=== PATIENT | female | born 1955 | race Caucasian/White ===

== ENCOUNTER 2017-01-26 11:30 | Inpatient (IN) | payer OTHER, MEDICARE ==
[2017-01-26] VITALS (8 sets, daily range): BP systolic 102–146; BP diastolic 57–79; PULSE 76–92; RESP 18–22; TEMP 97.3–98.8; O2SAT 88–98
[~2017-01-26] VITALS: Ht 160 cm; Wt 115.0 kg
[~2017-01-26 11:30] MED LIST: ALPR0.5T99 PO; ASPI81 PO; CAPT50TA PO; HUMULIN 70/30 SQ; HYDR50TA5 PO
[2017-01-26] MEDS ORDERED: SODIUM CHLORIDE 0.9% FLUSH 10 ML FLUSH IVF PRN (12:00)
[2017-01-26] MEDS ORDERED: OCUVTAB PO (12:12)
[2017-01-26] MEDS ORDERED: MAGN500T2 PO (12:12)
[2017-01-26] MEDS ORDERED: BRIM0.2S4 EACH EYE (12:12)
[2017-01-26] MEDS ORDERED: N7030SS (12:12)
[2017-01-26] MEDS ORDERED: CAPT50TA PO (12:12)
[2017-01-26] MEDS ORDERED: ALPR.5 PO (12:12)
[2017-01-26] MEDS ORDERED: GLYB5TAB3 PO (12:12)
[2017-01-26] MEDS ORDERED: ASPI81CH CHEW (12:12)
[2017-01-26] MEDS ORDERED: TIMO0.5S30 EACH EYE (12:12)
[2017-01-26] MEDS ORDERED: TRIA1TAB5 PO (12:12)
[2017-01-26 12:15] LABS: AUTOMATED NEUTROPHIL # 9.3 TH/MM3 (1.8-7.7); BASOPHIL # 0.4 TH/MM3 (0-0.2); BASOPHIL % 3.5 % (0.0-2.0); EOSINOPHIL # 0.1 TH/MM3 (0-0.4); EOSINOPHIL % 0.7 % (0.0-4.0); HEMO FLAGS DIFF FINAL; LYMPH % 12.7 % (9.0-44.0); LYMPHOCYTE # 1.5 TH/MM3 (1.0-4.8); MEAN CORPUSCULAR HEMOGLOBIN 32.6 PG (27.0-34.0); MONO % 6.3 % (0.0-8.0); NEUT % 76.8 % (16.0-70.0); PLATELET COUNT 320 TH/MM3 (150-450); RED BLOOD COUNT 4.49 MIL/MM3 (4.00-5.30); RED CELL DISTRIBUTION WIDTH 11.9 % (11.6-17.2); WHITE BLOOD COUNT 12.1 TH/MM3 (4.0-11.0)
[2017-01-26 12:23] LABS: CHLORIDE 101 MEQ/L (98-107); POTASSIUM 3.7 MEQ/L (3.5-5.1); SODIUM (NA) 140 MEQ/L (136-145)
[2017-01-26 12:27] LABS: ANION GAP 9 MEQ/L (5-15); APTT (PATIENT) 26.1 SEC (24.3-30.1); BICARBONATE 30.4 MEQ/L (21.0-32.0); BLOOD UREA NITROGEN 27 MG/DL (7-18); MAGNESIUM 2.2 MG/DL (1.5-2.5); PROTHROMBIN TIME - PATIENT 10.6 SEC (9.8-11.6)
[2017-01-26 12:30] LABS: ALT (GPT) 18 U/L (10-53); AST (GOT) 21 U/L (15-37); GLOMERULAR FILTRATION RATE 30 ML/MIN (>89)
[2017-01-26 12:31] LABS: TOTAL BILIRUBIN ADULT 0.3 MG/DL (0.2-1.0)
[2017-01-26 12:33] LABS: ALKALINE PHOSPHATASE 71 U/L (45-117); CREATINE KINASE 172 U/L (26-192)
[2017-01-26 12:45] LABS: CKMB 3.2 NG/ML (0.5-3.6)
--- NOTE | 2017-01-26 12:49 | RADHPO ---
EXAM DATE/TIME: 01/26/2017 12:13 [facility] COMPARISON: CHEST SINGLE AP, April 20, 2016, 19:25. INDICATIONS : Short of breath MEDICAL HISTORY : Diabetes mellitus type I. SURGICAL HISTORY : None. ENCOUNTER: Initial ACUITY: 4 - 6 days PAIN SCORE: 0/10 LOCATION: Bilateral chest FINDINGS: Rotated and underinflated AP view of the chest demonstrates a normal-sized cardiac silhouette. Linear opacity at the right lung base is characteristic of subsegmental atelectasis. There is also mild ate lectasis at the left lung base. No effusion, consolidation, or pneumothorax is identified. Bones and soft tissues demonstrate no acute finding. CONCLUSION: Underinflated examination with atelectasis at the bases. No acute finding is identified. Sriram Paul MD on January 26, 2017 at 12:45 Board Certified Radiologist. This report was verified electronically.
--- NOTE | 2017-01-26 12:59 | EKG ---
Date Performed: 01/26/2017 Time Performed: 11:56:37 PTAGE: 62 years EKG: Sinus rhythm LOW QRS VOLTAGE IN PRECORDIAL LEADS BORDERLINE ECG PREVIOUS TRACING : 04/20/2016 19.16 compared to the previous EKG no significant change DOCTOR: Jt Szymanski Interpretating Date/Time 01/26/2017 12:57:13
[2017-01-26] MEDS ORDERED: DIATRIZOATE MEGLUM/DIATRIZOATE SOD 9 ML CUP ONE (13:13)
[2017-01-26 13:29] LABS: BLOOD, URINE NEG (NEG); GLUCOSE,URINE NEG (NEG); KETONE, URINE TRACE mg/dL (NEG); NITRITE,URINE NEG (NEG); PH, URINE 5.5 (5.0-8.5)
[2017-01-26 13:35] LABS: METHOD OF COLLECTION CATH; URINE COLOR YELLOW (YELLW/STRAW)
[2017-01-26 13:36] LABS: WBC, URINE 100-200 /hpf (0-5)
[2017-01-26 13:37] LABS: BACTERIA, URINE OCC /hpf; COMMENT (UR) CULTURE INDICATED; CULTURE IF INDICATED CULTURE INDICATED
[2017-01-26] MEDS ORDERED: MACR100C2 PO (13:45)
--- NOTE | 2017-01-26 13:45 | PD ---
HPI . Swollen abdomen Chief Complaint: Edema Time Seen by Provider: 11:50 Travel History International Travel<30 days: No Contact w/Intl Traveler<30days: No Traveled to known affect area: No History of Present Illness HPI This patient is a very poor historian. She presents with the chief complaint of "fluid retention." She states that her abdomen is swollen and has been for the last 2-3 days. Was that it is secondary to retaining fluid. She denies any extremity swelling. She states that the abdominal swelling is making her feel short of breath. She also states that she thinks that she might have a urinary tract infection. I was not able to get her to further expand on those symptoms. The patient has not noted any exacerbating or relieving factors. She has no pain. Her shortness of breath is mild. Her abdominal swelling is severe. She states that she is not constipated. She is not having any vomiting or food intolerance. PFSH Past Medical History Hx Anticoagulant Therapy: Yes (baby aspirin) Cancer: Yes (CERVICAL) Chemotherapy: Yes (CERVICAL CA) COPD: Yes (CHRONIC BRONCHITIS) Diabetes: Yes Patient Takes Glucophage: Yes Hypertension: Yes Pneumonia: Yes Radiation Therapy: Yes (FOR CERVICAL CA) Sleep Apnea: Yes Tetanus Vaccination: < 5 Years Influenza Vaccination: Yes ?: Not Menopausal: Yes Past Surgical History Cholecystectomy: Yes Gynecologic Surgery: Yes (CERVICAL CONE BIOPSY) Other Surgery: Yes (cataracts, left leg gangrene ) Social History Alcohol Use: No Tobacco Use: No Substance Use: No Allergies-Medications (Allergen,Severity, Reaction): Coded Allergies: Penicillin (Verified Allergy, Severe, SWELLING, 01/26/17) Reported Meds & Prescriptions Reported Meds & Active Scripts Active Reported Aspirin 81 Mg Chew 81 Mg CHEW DAILY Xanax (Alprazolam) 0.5 Mg Tab 0.5 Mg PO Q8H PRN Novolin 70/30 Inj (Insulin Human Isoph/Insulin Regular) 1,000 Units/10 Ml Inj 40 Unit DAILY Ocuvite (Multiple Vitamins W/ Minerals) 1 Tab 1 Tab PO DAILY Glyburide 5 Mg Tab 5 Mg PO DAILY Take with meals at the same time each day Triamterene-Hydrochlorothiazide 75-50 Mg Tab 1 Tab PO DAILY Captopril 50 Mg Tab 50 Mg PO TIDAC Take 1 hour before meals. Magnesium Oxide 500 Mg Tab 1,000 Mg PO DAILY Brimonidine Opth Drops (Brimonidine Tartrate) 0.2% Soln 1 Drop EACH EYE BID Timolol Opth Drops 0.5 % Soln 1 Drop EACH EYE BID Review of Systems Except as stated in HPI: all other systems reviewed are Neg General / Constitutional: No: Fever, Chills Cardiovascular: No: Chest Pain or Discomfort Respiratory: Positive: Shortness of Breath Gastrointestinal: No: Nausea, Vomiting, Diarrhea, Abdominal Pain, Constipation , Changes in Bowel Habits, Loss of Appetite Genitourinary: Positive: Other (she states that she thinks that she has a UTI) Physical Exam Narrative GENERAL: Markedly obese. No acute distress. SKIN: Warm and dry. Skin changes compatible with peripheral vascular disease. The skin of the lower extremities is darkened and thickened. HEAD: Atraumatic. Normocephalic. EYES: Pupils equal and round. Extraocular movements are intact. ENT: No nasal bleeding or discharge. Mucous membranes pink and moist. NECK: Trachea midline. Neck is supple. CARDIOVASCULAR: Regular rate and rhythm. Heart sounds are normal. RESPIRATORY: Able to speak to me complete sentences without any respiratory distress. No accessory muscle use. Lungs are clear with full air movement throughout. GASTROINTESTINAL: Abdomen soft. Non-tender. Protuberant. No pitting edema of the abdominal wall. MUSCULOSKELETAL: She has a deformed right hand. No edema. NEUROLOGICAL: Awake and alert. No obvious cranial nerve deficits. Motor grossly within normal limits. Normal speech. PSYCHIATRIC: Appropriate mood and affect; insight and judgment normal. Data Data Last Documented VS Vital Signs Date Time Temp Pulse Resp B/P Pulse Ox O2 Delivery O2 Flow Rate FiO2 01/26/17 15:13 84 20 146/69 88 Nasal Cannula 2 01/26/17 11:40 98.2 Orders Complete Blood Count With Diff (01/26/17 11:55) Comprehensive Metabolic Panel (01/26/17 11:55) B-Type Natriuretic Peptide (01/26/17 11:55) Act Partial Throm Time (Ptt) (01/26/17 11:55) Prothrombin Time / Inr (Pt) (01/26/17 11:55) Magnesium (Mg) (01/26/17 11:55) Ckmb (Isoenzyme) Profile (01/26/17 11:55) Troponin I (01/26/17 11:55) Iv Access Insert/Monitor (01/26/17 11:55) Electrocardiogram (01/26/17 11:55) Ecg Monitoring (01/26/17 11:55) Oximetry (01/26/17 11:55) Oxygen Administration (01/26/17 11:55) Chest, Single Ap (01/26/17 11:55) Sodium Chloride 0.9% Flush (Ns Flush) (01/26/17 12:00) Urinalysis - C+S If Indicated (01/26/17 12:16) CKMB (01/26/17 12:00) CKMB% (01/26/17 12:00) Oral Contrast - Adult (01/26/17 13:09) Diatrizoate Liq ( Gastroview Liq) (01/26/17 13:13) Urinary Catheter Management NATHALIA.Q8H (01/26/17 13:35) Urine Culture (01/26/17 13:20) Ct Abd/Pel W/O Iv Contrast (01/26/17 13:49) Ceftriaxone Inj (Rocephin Inj) (01/26/17 15:30) Furosemide Inj (Lasix Inj) (01/26/17 15:45) Admit Order (Ed Use Only) (01/26/17 15:51) Ldh Serum (01/26/17 12:00) Labs Laboratory Tests Test 01/26/17 01/26/17 12:00 13:20 White Blood Count 12.1 TH/MM3 Red Blood Count 4.49 MIL/MM3 Hemoglobin 14.6 GM/DL Hematocrit 43.0 % Mean Corpuscular Volume 96.0 FL Mean Corpuscular Hemoglobin 32.6 PG Mean Corpuscular Hemoglobin 34.0 % Concent Red Cell Distribution Width 11.9 % Platelet Count 320 TH/MM3 Mean Platelet Volume 8.7 FL Neutrophils (%) (Auto) 76.8 % Lymphocytes (%) (Auto) 12.7 % Monocytes (%) (Auto) 6.3 % Eosinophils (%) (Auto) 0.7 % Basophils (%) (Auto) 3.5 % Neutrophils # (Auto) 9.3 TH/MM3 Lymphocytes # (Auto) 1.5 TH/MM3 Monocytes # (Auto) 0.8 TH/MM3 Eosinophils # (Auto) 0.1 TH/MM3 Basophils # (Auto) 0.4 TH/MM3 CBC Comment DIFF FINAL Differential Comment Prothrombin Time 10.6 SEC Prothromb Time International 1.0 RATIO Ratio Activated Partial 26.1 SEC Thromboplast Time Sodium Level 140 MEQ/L Potassium Level 3.7 MEQ/L Chloride Level 101 MEQ/L Carbon Dioxide Level 30.4 MEQ/L Anion Gap 9 MEQ/L Blood Urea Nitrogen 27 MG/DL Creatinine 1.70 MG/DL Estimat Glomerular Filtration 30 ML/MIN Rate Random Glucose 166 MG/DL Calcium Level 8.9 MG/DL Magnesium Level 2.2 MG/DL Total Bilirubin 0.3 MG/DL Aspartate Amino Transf 21 U/L (AST/SGOT) Alanine Aminotransferase 18 U/L (ALT/SGPT) Alkaline Phosphatase 71 U/L Lactate Dehydrogenase 256 U/L Total Creatine Kinase 172 U/L Creatine Kinase MB 3.2 NG/ML Troponin I LESS THAN 0.02 NG/ML B-Type Natriuretic Peptide 60 PG/ML Total Protein 7.0 GM/DL Albumin 2.5 GM/DL Urine Collection Type CATH Urine Color YELLOW Urine Turbidity SLIGHT Urine pH 5.5 Urine Specific [place] 1.016 Urine Protein 30 mg/dL Urine Glucose (UA) NEG mg/dL Urine Ketones TRACE mg/dL Urine Occult Blood NEG Urine Nitrite NEG Urine Bilirubin NEG Urine Leukocyte Esterase SMALL Urine WBC 100-200 /hpf Urine WBC Clumps MANY Urine Bacteria OCC /hpf Urine Granular Casts 10-15 /lpf Microscopic Urinalysis Comment CULTURE INDICATED Urine Collection Time 13:20 MDM Medical Decision Making Medical Screen Exam Complete: Yes Emergency Medical Condition: Yes Medical Record Reviewed: Yes (medical history is significant for diabetes, hypertension, COPD, obstructive sleep apnea and cervical cancer.) Interpretation(s) EKG shows a sinus rhythm with no ST segment elevation or depression. Differential Diagnosis My differential diagnosis of abdominal distention includes but is not limited to constipation, bowel obstruction, ascites, obesity Narrative Course Patient presents for evaluation of abdominal distention. She also thinks that she has urinary tract infection. I truly suspect that her abdominal distention is obesity. CBC & BMP Diagram 01/26/17 12:00 UA>>sm LE, 100-200 WBC, many WBC clumps, occ bact Her BNP is 60. Her Ortiz act enzymes are negative. Liver function studies are normal. Last Impressions Abdomen/Pelvis CT 01/26/17 9741 Signed Impressions: Service Date/Time: Saturday, January 26, 2017 14:38 - CONCLUSION: 1. Moderate to large amount of ascites without definitive etiology identified on CT. No definitive mesenteric mass or hepatic volume loss. Evaluation of the mesentery and liver are however limited due to lack of IV contrast. 2. Periumbilical anterior bowel wall hernia containing fat and ascites fluid. Myke Kendall MD Chest X-Ray 01/26/17 1155 Signed Impressions: Service Date/Time: Thursday, January 26, 2017 12:13 - CONCLUSION: Underinflated examination with atelectasis at the bases. No acute finding is identified. Sriram Paul MD Vital Signs Date Time Temp Pulse Resp B/P Pulse Ox O2 Delivery O2 Flow Rate FiO2 01/26/17 15:13 84 20 146/69 88 Nasal Cannula 2 01/26/17 14:18 88 20 118/77 98 01/26/17 12:39 91 2 01/26/17 12:30 92 01/26/17 12:28 89 20 92 01/26/17 11:40 98.2 91 20 112/71 91 This patient does have ascites and is hypoxic with sats of 88%. I will admit her to the hospital. Sepsis Criteria SIRS Criteria (2 or more): WBC > 11019, < 4000 or > 10% bands Sepsis Criteria (SIRS+source): Infect source susp/known Physician Communication Physician Communication Dr. Hadley will admit. Diagnosis Primary Impression: Abdominal distention Additional Impressions: Urinary tract infection Qualified Code: N30.00 - Acute cystitis without hematuria Ascites Qualified Code: R18.8 - Other ascites Hypoxia Admitting Information Admitting Physician Requests: Admit Patient Instructions: General Instructions, Urinary Tract Infection in Women ( [place]) Condition: Stable Kimberlee Pisano MD Jan 26, 2017 13:45
--- NOTE | 2017-01-26 15:19 | RADHPO ---
EXAM DATE/TIME: 01/26/2017 14:38 This report includes an Addendum and supersedes previous reports for this exam. [facility] COMPARISON: No previous studies available for comparison. INDICATIONS : abdominal distention. ORAL CONTRAST: Prescribed oral contrast ingested. RADIATION DOSE: 62.52 CTDIvol (mGy) MEDICAL HISTORY : cervical ca with radiation , Bronchititis SURGICAL HISTORY : gangrene left leg ENCOUNTER: Initial ACUITY: 4 - 6 days PAIN SCALE: 6/10 LOCATION: Bilateral abdomen TECHNIQUE: Volumetric scanning of the abdomen and pelvis was performed. Using automated exposure control and ad justment of the mA and/or kV according to patient size, radiation dose was kept as low as reasonably achievable to obtain optimal diagnostic quality images. FINDINGS: LOWER LUNGS: Linear probable scarring versus atelectasis in the right lung base. LIVER: Liver is grossly homogeneous in density without evidence for significant volume loss or intrapelvic d uct dilatation. Gallbladder surgically absent. SPLEEN: Normal size without lesion. PANCREAS: Within normal limits. KIDNEYS: Kidneys are symmetrical in size without evidence for hydronephrosis, radiopaque renal calculi, or con tour deforming abnormality. ADRENAL GLANDS: Within normal limits. VASCULAR: There is no aortic aneurysm. BOWEL/MESENTERY: There is a moderate to large mount of ascites. Appendix is visualized and normal. Scattered colonic d iverticula are noted in the descending and distal transverse colon. Bowel otherwise appears unremarka ble without evidence for obstruction or significant bowel wall thickening. ABDOMINAL WALL: Periumbilical anterior abdominal wall hernia containing fat and small amount of ascites fluid. RETROPERITONEUM: There is no lymphadenopathy. BLADDER: Decompressed secondary to White catheter. REPRODUCTIVE: Uterus is surgically absent. No adnexal mass. INGUINAL: Small subcentimeter me some nodes, likely reactive. MUSCULOSKELETAL: No abnormal lytic or blastic bony lesions. Multilevel degenerative spondylosis of the lumbar spine. CONCLUSION: 1. Moderate to large amount of ascites without definitive etiology identified on CT. No definitive me senteric mass or hepatic volume loss. Evaluation of the mesentery and liver are however limited due t o lack of IV contrast. 2. Periumbilical anterior bowel wall hernia containing fat and ascites fluid. Myke Kendall MD on January 26, 2017 at 15:08 Board Certified Radiologist. This report was verified electronically. ADDENDUM: Reexamination of the pelvic CT exam does demonstrate a small uterus which appears unremarkable by CT. The uterus was originally reported as surgically absent. Myke Kendall MD on January 28, 2017 at 16:01 Board Certified Radiologist. This report was verified electronically.
[2017-01-26] MEDS ORDERED: cefTRIAXone INJ 1,000 MG in SODIUM CHLORIDE 0.9% INJ 100 ML IV ONE (15:30)
[2017-01-26] MEDS ORDERED: FUROSEMIDE 40 MG/4 ML VIAL IV PUSH ONE (15:45)
[2017-01-26] MEDS ORDERED: DEXTROSE 50% IN WATER 50 ML VIAL(D50) IV PRN (16:15)
[2017-01-26] MEDS ORDERED: GLUCAGON 1 MG/ML VIAL OTHER PRN (16:15)
[2017-01-26] MEDS ORDERED: SODIUM CHLORIDE 0.9% FLUSH 10 ML FLUSH IV FLUSH PRN (16:15)
--- NOTE | 2017-01-26 16:30 | HHI.HP ---
HPI Service [facility] Primary Care Physician Erin Frazier MD Admission Diagnosis ascites, UTI, hypoxia Diagnoses: Chief Complaint: Swelling and short of breath Travel History International Travel<30 Days: No Contact w/Intl Traveler <30 Da: No Traveled to Known Affected Are: No History of Present Illness Patient is a 62-year-old female with a known history of diabetes mellitus type 2 and frequent urinary tract infections. Patient says that for the last 3 days she's had increasing swelling of the abdomen and decreased urine output. Her urine also has been foul-smelling and she was concerned she had a urinary tract infection. For the last month she has received 2 separate empiric antibiotic regimens for probable urinary tract infection by her primary care doctor. One of these of Cipro and she believes the other was Flagyl. Patient says that her urine has never cleared up and is become very discomforting. Patient came to the emergency room with increased swelling for the last 3 days and on exam her abdomen is quite distended. She is obese however this distention is superimposed on that and there is a fluid wave on exam with hypoactive bowel sounds. Patient notes normal bowel habits without any history of obstruction. She does not drink alcohol notes no recent exposure to possible toxins. She does have acute kidney injury and was also hypoxemic on arrival in the emergency room. Patient was given Lasix and a urinary catheter was placed. Patient did have some improvement on oxygen. She has been recommended for further evaluation and treatment in the hospital due to massive plan ascites clinically and on CT findings. Review of Systems Constitutional: DENIES: Diaphoretic episodes, Fatigue, Fever, Weight gain, Weight loss, Chills, Dizziness, Change in appetite, Night Sweats Endocrine: DENIES: Abnorml menstrual pattern, Heat/cold intolerance, Polydipsia , Polyuria, Polyphagia Eyes: COMPLAINS OF: Vision loss, DENIES: Blurred vision, Diplopia, Eye inflammation, Eye pain, Photosensitivity, Double Vision Ears, nose, mouth, throat: DENIES: Tinnitus, Hearing loss, Vertigo, Nasal discharge, Oral lesions, Throat pain, Hoarseness, Ear Pain, Running Nose, Epistaxis, Sinus Pain, Toothache, Odynophagia Cardiovascular: COMPLAINS OF: Dyspnea on Exertion, Lower Extremity Edema, DENIES: Chest pain, Palpitations, Syncope, PND, Orthopnea, Claudication Gastrointestinal: DENIES: Abdominal pain, Black stools, Bloody stools, Constipation, Diarrhea, Nausea, Vomiting, Difficulty Swallowing, Anorexia Genitourinary: DENIES: Abnormal vaginal bleeding, Dysmenorrhea, Dyspareunia, Sexual dysfunction, Urinary frequency, Urinary incontinence, Urgency, Hematuria , Dysuria, Nocturia, Vaginal discharge Musculoskeletal: DENIES: Joint pain, Muscle aches, Stiffness, Joint Swelling, Back pain, Neck pain Integumentary: DENIES: Abnormal pigmentation, Pruritus, Rash, Nail changes, Breast masses, Breast skin changes, Nipple discharge Hematologic/lymphatic: DENIES: Bruising, Lymphadenopathy Immunologic/allergic: DENIES: Eczema, Urticaria Neurologic: DENIES: Abnormal gait, Headache, Localized weakness, Paresthesias, Seizures, Speech Problems, Tremor, Poor Balance Psychiatric: DENIES: Anxiety, Confusion, Mood changes, Depression, Hallucinations, Agitation, Suicidal Ideation, Homicidal Ideation, Delusions Past Family Social History Past Medical History Diabetes Hypertension Diabetic nephropathy and neuropathy and retinopathy Past Surgical History Hysterectomy Reported Medications Reviewed in the medical record Allergies: Coded Allergies: Penicillin (Verified Allergy, Severe, SWELLING, 01/26/17) Active Ordered Medications Reviewed in the medical record Family History Parents had diabetes and father from a stroke Social History No current tobacco or alcohol dependency, lives with her dog Physical Exam Vital Signs Vital Signs Date Time Temp Pulse Resp B/P Pulse Ox O2 Delivery O2 Flow Rate FiO2 01/26/17 15:13 84 20 146/69 88 Nasal Cannula 2 01/26/17 14:18 88 20 118/77 98 01/26/17 12:39 91 2 01/26/17 12:30 92 01/26/17 12:28 89 20 92 01/26/17 11:40 98.2 91 20 112/71 91 Physical Exam GENERAL: This is a well-nourished, well-developed patient, in no apparent distress. SKIN: No rashes, ecchymoses or lesions. Cool and dry. HEAD: Atraumatic. Normocephalic. No temporal or scalp tenderness. EYES: sclerotic right eye. Extraocular motions intact. No scleral icterus. No injection or drainage. ENT: Nose without bleeding, purulent drainage or septal hematoma. Throat without erythema, tonsillar hypertrophy or exudate. Uvula midline. Airway patent. NECK: Trachea midline. No JVD or lymphadenopathy. Supple, nontender, no meningeal signs. CARDIOVASCULAR: Regular rate and rhythm without murmurs, gallops, or rubs. RESPIRATORY: Clear to auscultation. Breath sounds equal bilaterally. No wheezes , rales, or rhonchi. GASTROINTESTINAL: Abdomen soft, non-tender, very distended and hypoactive . No hepato-splenomegaly, or palpable masses. No guarding. MUSCULOSKELETAL: right hand underdeveloped; other 3 Extremities without clubbing , cyanosis, but trace leg edema. No joint tenderness, effusion, or edema noted. No calf tenderness. Negative Homans sign bilaterally. NEUROLOGICAL: Awake and alert. Cranial nerves II through XII intact. Motor and sensory grossly within normal limits. Five out of 5 muscle strength in all muscle groups. Normal speech. Laboratory Laboratory Tests Test 01/26/17 01/26/17 12:00 13:20 White Blood Count 12.1 Red Blood Count 4.49 Hemoglobin 14.6 Hematocrit 43.0 Mean Corpuscular Volume 96.0 Mean Corpuscular Hemoglobin 32.6 Mean Corpuscular Hemoglobin 34.0 Concent Red Cell Distribution Width 11.9 Platelet Count 320 Mean Platelet Volume 8.7 Neutrophils (%) (Auto) 76.8 Lymphocytes (%) (Auto) 12.7 Monocytes (%) (Auto) 6.3 Eosinophils (%) (Auto) 0.7 Basophils (%) (Auto) 3.5 Neutrophils # (Auto) 9.3 Lymphocytes # (Auto) 1.5 Monocytes # (Auto) 0.8 Eosinophils # (Auto) 0.1 Basophils # (Auto) 0.4 CBC Comment DIFF FINAL Differential Comment Prothrombin Time 10.6 Prothromb Time International 1.0 Ratio Activated Partial 26.1 Thromboplast Time Sodium Level 140 Potassium Level 3.7 Chloride Level 101 Carbon Dioxide Level 30.4 Anion Gap 9 Blood Urea Nitrogen 27 Creatinine 1.70 Estimat Glomerular Filtration 30 Rate Random Glucose 166 Calcium Level 8.9 Magnesium Level 2.2 Total Bilirubin 0.3 Aspartate Amino Transf 21 (AST/SGOT) Alanine Aminotransferase 18 (ALT/SGPT) Alkaline Phosphatase 71 Total Creatine Kinase 172 Creatine Kinase MB 3.2 Troponin I LESS THAN 0.02 B-Type Natriuretic Peptide 60 Total Protein 7.0 Albumin 2.5 Urine Collection Type CATH Urine Color YELLOW Urine Turbidity SLIGHT Urine pH 5.5 Urine Specific [facility] 1.016 Urine Protein 30 Urine Glucose (UA) NEG Urine Ketones TRACE Urine Occult Blood NEG Urine Nitrite NEG Urine Bilirubin NEG Urine Leukocyte Esterase SMALL Urine WBC 100-200 Urine WBC Clumps MANY Urine Bacteria OCC Urine Granular Casts 10-15 Microscopic Urinalysis Comment CULTURE INDICATED Urine Collection Time 13:20 Date/Time Procedure Status Source Growth 01/26/17 13:20 Urine Culture Received Urine Catheterized Urine Pending Result Diagram: 01/26/17 1200 01/26/17 1200 Imaging Last Impressions Abdomen/Pelvis CT 01/26/17 1349 Signed Impressions: Service Date/Time: Thursday, January 26, 2017 14:38 - CONCLUSION: 1. Moderate to large amount of ascites without definitive etiology identified on CT. No definitive mesenteric mass or hepatic volume loss. Evaluation of the mesentery and liver are however limited due to lack of IV contrast. 2. Periumbilical anterior bowel wall hernia containing fat and ascites fluid. Myke Kendall MD Chest X-Ray 01/26/17 1155 Signed Impressions: Service Date/Time: Thursday, January 26, 2017 12:13 - CONCLUSION: Underinflated examination with atelectasis at the bases. No acute finding is identified. Sriram Paul MD Assessment and Plan Problem List: (1) Ascites ICD Code: R18.8 Status: Acute Plan: Etiology unclear at this time, will proceed with ultrasound for diagnostic and therapeutic paracentesis. Lasix as needed (2) Hypoxia ICD Code: R09.02 Status: Acute Plan: Likely due to abdominal distention from ascites Continue oxygen as needed Echocardiogram to rule out congestive heart failure (3) Urinary tract infection ICD Code: N39.0 Status: Acute Plan: Continue with empiric Rocephin, cultures pending (4) ARF (acute renal failure) ICD Code: N17.9 Status: Acute Plan: Etiology unclear, will treat UTI and follow urine output avoid captopril and other nephrotoxic medication (5) DM2 (diabetes mellitus, type 2) ICD Code: E11.9 Status: Acute Plan: Resume patient's home medications Diabetic diet Physician Certification 2 Midnight Certification Type: Admission for Inpatient Services Order for Inpatient Services The services are ordered in accordance with Medicare regulations or non- Medicare payer requirements, as applicable. In the case of services not specified as inpatient-only, they are appropriately provided as inpatient services in accordance with the 2-midnight benchmark. Estimated LOS (days): 3 3 days is the estimated time the patient will need to remain in the hospital, assuming treatment plan goals are met and no additional complications. Post-Hospital Plan: Home Problem Qualifiers (1) Ascites: Qualified Code: R18.8 - Other ascites (2) Urinary tract infection: Qualified Code: N30.00 - Acute cystitis without hematuria Monica Hadley MD Jan 26, 2017 16:30
--- NOTE | 2017-01-26 18:29 | RADHPO ---
EXAM DATE/TIME: 01/26/2017 17:59 [facility] COMPARISON: No previous studies available for comparison. INDICATIONS : Increased BUN/creatinine. MEDICAL HISTORY : Chronic obstructive pulmonary disease. Hypertension. Cervical cancer. Pneumonia. Chronic bronchitis . Sleep apnea. Diabetes. Anticoagulant therapy, Aspirin 81mg. SURGICAL HISTORY : Cholecystectomy. Cervical cone biopsy. Chemotherapy. Radiation therapy. Cataracts. Left leg gangr andrea. ENCOUNTER: Initial ACUITY: 1 day PAIN SCORE: 0/10 LOCATION: Bilateral flank MEASUREMENTS: RIGHT KIDNEY: 10.2 x 5.2 x 5.6 cm LEFT KIDNEY: 10.8 x 4.8 x 5.5 cm FINDINGS: RIGHT KIDNEY: Renal cortex is normal in thickness and echotexture. No hydronephrosis, stone, or mass. LEFT KIDNEY: Renal cortex is normal in thickness and echotexture. No hydronephrosis, stone, or mass. BLADDER: Within normal limits given the degree of distension. CONCLUSION: Ultrasound appearance of the kidneys and urinary bladder within normal limits. Sriram Kaufman MD on January 26, 2017 at 18:26 Board Certified Radiologist. This report was verified electronically.
[2017-01-26 19:07] LABS: LDH SERUM 256 U/L (84-246)
[2017-01-26] MEDS: SODIUM CHLORIDE 0.9% FLUSH 10 ML FLUSH IV FLUSH SCH (20:55)
[2017-01-26] MEDS: BRIMONIDINE TARTRATE 0.2% OPHT SOLN 5 ML BTL EACH EYE SCH (20:56)
[2017-01-26] MEDS: TIMOLOL MALEATE 0.5% OPHT SOLN 5 ML BTL EACH EYE SCH (20:56)
[2017-01-26] MEDS: INSULIN ASPART SUPPLEMENTAL SCALE SQ SCH (21:00)
[2017-01-27] VITALS (8 sets, daily range): BP systolic 105–156; BP diastolic 56–90; PULSE 90–99; RESP 18–21; TEMP 97.2–98; O2SAT 80–98
[2017-01-27] MEDS: INSULIN ASPART SUPPLEMENTAL SCALE SQ SCH ×4 (07:00→20:49)
[2017-01-27 07:24] LABS: AUTOMATED NEUTROPHIL # 9.8 TH/MM3 (1.8-7.7); BASOPHIL # 0.4 TH/MM3 (0-0.2); BASOPHIL % 3.4 % (0.0-2.0); EOSINOPHIL # 0.1 TH/MM3 (0-0.4); EOSINOPHIL % 0.9 % (0.0-4.0); HEMATOCRIT 41.4 % (35.0-46.0); LYMPH % 10.9 % (9.0-44.0); LYMPHOCYTE # 1.3 TH/MM3 (1.0-4.8); MEAN CELL VOLUME 96.1 FL (80.0-100.0); MEAN CORPUSCULAR HEMOGLOBIN 32.4 PG (27.0-34.0); MEAN CORPUSCULAR HGB CONC 33.7 % (32.0-36.0); MONO % 6.3 % (0.0-8.0); NEUT % 78.5 % (16.0-70.0); PLATELET COUNT 304 TH/MM3 (150-450); RED BLOOD COUNT 4.31 MIL/MM3 (4.00-5.30); WHITE BLOOD COUNT 12.4 TH/MM3 (4.0-11.0)
[2017-01-27 07:37] LABS: BICARBONATE 29.4 MEQ/L (21.0-32.0)
[2017-01-27 07:43] LABS: HEMO FLAGS AUTO DIFF
[2017-01-27 08:45] LABS: SCAN/DIFF AUTO DIFF CONFIRMED
--- NOTE | 2017-01-27 09:17 | HHI.PR ---
Subjective Remarks Patient stated evaluated today follow-up for ascites. Some hypoxemia overnight as the patient to call for oxygen. This quickly recovered with resumption of nasal cannula oxygen. Patient reports today that she has had increasing constipation over the last 2 weeks which is unusual for her and has been taking prune juice and stool softeners. She notes no bloody stools and no painful defecation. Objective Vitals Vital Signs Date Time Temp Pulse Resp B/P Pulse Ox O2 Delivery O2 Flow Rate FiO2 01/27/17 08:27 92 Nasal Cannula 2.00 01/27/17 07:55 80 21 01/27/17 04:19 01/27/17 00:08 98.0 90 20 110/60 92 01/26/17 21:03 98.8 92 22 104/57 90 01/26/17 20:25 93 Nasal Cannula 2.00 01/26/17 18:00 97.3 76 18 102/60 01/26/17 16:50 80 20 142/79 97 Nasal Cannula 2 01/26/17 15:13 84 20 146/69 88 Nasal Cannula 2 01/26/17 14:18 88 20 118/77 98 01/26/17 12:39 91 2 01/26/17 12:30 92 01/26/17 12:28 89 20 92 01/26/17 11:40 98.2 91 20 112/71 91 I/O 01/26/17 01/26/17 01/26/17 01/27/17 01/27/17 01/27/17 07:00 15:00 23:00 07:00 15:00 23:00 Output Total 500 ml Balance -500 ml Output Urine Total 500 ml # Bowel Movements 0 Result Diagram: 01/27/17 0703 01/27/17 0703 Imaging Last Impressions Abdomen/Pelvis CT 01/26/17 1349 Signed Impressions: Service Date/Time: Thursday, January 26, 2017 14:38 - CONCLUSION: 1. Moderate to large amount of ascites without definitive etiology identified on CT. No definitive mesenteric mass or hepatic volume loss. Evaluation of the mesentery and liver are however limited due to lack of IV contrast. 2. Periumbilical anterior bowel wall hernia containing fat and ascites fluid. Myke Kendall MD Chest X-Ray 01/26/17 1155 Signed Impressions: Service Date/Time: Thursday, January 26, 2017 12:13 - CONCLUSION: Underinflated examination with atelectasis at the bases. No acute finding is identified. Sriram Paul MD Renal Ultrasound 01/26/17 0000 Signed Impressions: Service Date/Time: Thursday, January 26, 2017 17:59 - CONCLUSION: Ultrasound appearance of the kidneys and urinary bladder within normal limits. Sriram Kaufman MD Objective Remarks GENERAL: This is a well-nourished, well-developed patient, in no apparent distress. CARDIOVASCULAR: Regular rate and rhythm without murmurs, gallops, or rubs. RESPIRATORY: Clear to auscultation. Breath sounds equal bilaterally. No wheezes , rales, or rhonchi. GASTROINTESTINAL: Abdomen soft, non-tender, mildly distended with fluid wave. Hypo-active bowel sounds MUSCULOSKELETAL: Right hand underdeveloped, other 3 Extremities without clubbing , cyanosis, there is trace edema. NEURO: Legally blind. Right sclerotic eye. Alert & Oriented x4 to person, place, time, situation. Moves all ext x4 A/P Problem List: (1) Ascites ICD Code: R18.8 Status: Acute Plan: Etiology unclear at this time, will proceed with ultrasound for diagnostic and therapeutic paracentesis. Lasix as needed patient with a history of cholecystectomy and hysterectomy Recent bowel change for 2 weeks with constipation (2) Hypoxia ICD Code: R09.02 Status: Acute Plan: Likely due to abdominal distention from ascites Continue oxygen as needed Echocardiogram to rule out congestive heart failure abg pending (3) Urinary tract infection ICD Code: N39.0 Status: Acute Plan: Continue with empiric Rocephin, cultures pending (4) ARF (acute renal failure) ICD Code: N17.9 Status: Acute Plan: Etiology unclear, will treat UTI and follow urine output avoid captopril and other nephrotoxic medication Improved (5) DM2 (diabetes mellitus, type 2) ICD Code: E11.9 Status: Acute Plan: Resume patient's home medications Diabetic diet Problem Qualifiers (1) Ascites: Qualified Code: R18.8 - Other ascites (2) Urinary tract infection: Qualified Code: N30.00 - Acute cystitis without hematuria Monica Hadley MD Jan 27, 2017 09:17
[2017-01-27 10:15] LABS: BLOOD GAS BASE EXCESS 3.4 mmol/L (-2-2); BLOOD GAS CARBOXYHEMOGLOBIN 2.1 % (0-4); BLOOD GAS HCO3 28 mmol/L (22-26); BLOOD GAS METHEMOGLOBIN 1.1 % (0-2); BLOOD GAS O2 HGB SATURATION 87 % (90-100); BLOOD GAS OXYGEN CONTENT 18.3 Vol % (12.0-20.0); BLOOD GAS PCO2 45 mmHG (38-42); BLOOD GAS PO2 59 mmHG (61-120); BLOOD GAS TOTAL HGB 14.9 G/DL (12.0-16.0); CRITICAL VALUE YES; FIO2 21 %; OXYGEN DEVICE ROOM AIR; TEMP CORR TO 98.6
[2017-01-27 10:16] LABS: DRAW SITE RT BRACHIAL; NUMBER OF ARTERIAL PUNCTURES 2; STAT NO; ULNAR PULSE Y
[2017-01-27] MEDS: INSULIN HUMAN NPH/R 70/30 1,000 UNITS/10 ML VIAL SQ SCH (10:17)
[2017-01-27] MEDS: BRIMONIDINE TARTRATE 0.2% OPHT SOLN 5 ML BTL EACH EYE SCH ×2 (10:18→20:46)
[2017-01-27] MEDS: TIMOLOL MALEATE 0.5% OPHT SOLN 5 ML BTL EACH EYE SCH ×2 (10:18→21:00)
[2017-01-27] MEDS: FUROSEMIDE 20 MG/2 ML VIAL IV PUSH SCH (10:20)
[2017-01-27] MEDS: SODIUM CHLORIDE 0.9% FLUSH 10 ML FLUSH IV FLUSH SCH ×2 (10:20→20:48)
[2017-01-27] MEDS: glyBURIDE 5 MG TAB PO SCH (10:20)
[2017-01-27] MEDS: ALPRAZolam 0.5 MG TAB PO PRN (10:22)
--- NOTE | 2017-01-27 12:30 | RADHPO ---
EXAM DATE/TIME: 01/27/2017 11:00 [facility] COMPARISON: US KIDNEY/RENAL/BLADDER, January 26, 2017, 17:59. INDICATIONS : Ascites. MEDICAL HISTORY : Chronic obstructive pulmonary disease. Hypertension. Cervical cancer. Pneumonia. Chronic bronchitis. Sleep apnea. Diabetes. Anticoagulant therapy, Aspirin 81mg. SURGICAL HISTORY : Cholecystectomy Cervical cone biopsy. Chemotherapy. Radiation therapy. Cataracts. Left leg gangrene . ENCOUNTER: Initial ACUITY: 2 days PAIN SCORE: 4/10 LOCATION: Right lower quadrant FLUID: Total volume of 7100 cc of cloudy, yellow fluid was removed. Fluid was sent to lab for ordered studies. Post procedure scanning reveals no hematoma or other complication. TECHNIQUE: 1. Ultrasound guidance for abdominal paracentesis. 2. Paracentesis. The risks, benefits, and alternatives to ultrasound guided paracentesis were explained to the patient in detail including the risk of bleeding and infection. Written and verbal informed consent was obt ained. With the patient on the ultrasound table, ultrasound imaging was used to select the most appropriate approach for paracentesis. Overlying skin was prepped and draped in the usual sterile fashion and wi th a local anesthetic, a dermatotomy was made with an 11 blade scalpel. A 6 [place] [employer] ca theter was introduced into the peritoneal cavity and fluid was collected. The patient tolerated the procedure well and left the ultrasound suite in stable condition. CONCLUSION: Uncomplicated ultrasound guided paracentesis. Juan Pleitez MD on January 27, 2017 at 12:28 Board Certified Radiologist. This report was verified electronically.
[2017-01-27 15:29] LABS: PERITONEAL WBC 790 /MM3 (0-10)
[2017-01-27 16:09] LABS: PERITONEAL LYMPHS 62 %; PERITONEAL POLYS(SEGS) 2 %
[2017-01-27 16:10] LABS: PERITONEAL MESOTHELIAL 36 %
[2017-01-27] MEDS: ONDANSETRON HCL 4 MG/2 ML VIAL IVP PRN (16:11)
[2017-01-27] MEDS: cefTRIAXone INJ 2,000 MG in SODIUM CHLORIDE 0.9% INJ 100 ML IV SCH (16:20)
[2017-01-27] MEDS ORDERED: SENNOSIDES 8.6 MG TAB PO PRN (17:00)
[2017-01-27] MEDS ORDERED: LACTULOSE SYRUP 20 GM/30 ML CUP PO PRN (17:00)
[2017-01-27] MEDS ORDERED: BISACODYL 10 MG SUPP RECTAL PRN (17:00)
[2017-01-27] MEDS: MAGNESIUM HYDROXIDE SUSP 30 ML CUP PO PRN (18:55)
[2017-01-27] MEDS: DOCUSATE SODIUM 50 MG/SENNA 8.6 MG TAB PO SCH (20:46)
[2017-01-28] VITALS (7 sets, daily range): BP systolic 139–150; BP diastolic 66–99; PULSE 80–93; RESP 18–20; TEMP 95.7–97.7; O2SAT 92–96
[2017-01-28 06:50] LABS: CHLORIDE 98 MEQ/L (98-107); POTASSIUM 4.2 MEQ/L (3.5-5.1); SODIUM (NA) 140 MEQ/L (136-145)
[2017-01-28 06:58] LABS: ANION GAP 7 MEQ/L (5-15); BICARBONATE 35.4 MEQ/L (21.0-32.0)
[2017-01-28 06:59] LABS: BLOOD UREA NITROGEN 23 MG/DL (7-18)
[2017-01-28] MEDS: INSULIN ASPART SUPPLEMENTAL SCALE SQ SCH ×4 (07:00→21:26)
[2017-01-28 07:02] LABS: GLOMERULAR FILTRATION RATE 45 ML/MIN (>89)
[2017-01-28] MEDS: DOCUSATE SODIUM 50 MG/SENNA 8.6 MG TAB PO SCH ×2 (09:00→21:16)
[2017-01-28] MEDS: TIMOLOL MALEATE 0.5% OPHT SOLN 5 ML BTL EACH EYE SCH ×2 (09:00→21:00)
[2017-01-28] MEDS: INSULIN HUMAN NPH/R 70/30 1,000 UNITS/10 ML VIAL SQ SCH (09:40)
[2017-01-28] MEDS: FUROSEMIDE 20 MG/2 ML VIAL IV PUSH SCH (09:40)
[2017-01-28] MEDS: glyBURIDE 5 MG TAB PO SCH (09:40)
[2017-01-28] MEDS: SODIUM CHLORIDE 0.9% FLUSH 10 ML FLUSH IV FLUSH SCH ×2 (09:41→21:15)
[2017-01-28] MEDS: BRIMONIDINE TARTRATE 0.2% OPHT SOLN 5 ML BTL EACH EYE SCH ×2 (09:42→21:14)
--- NOTE | 2017-01-28 12:29 | HHI.PR ---
Objective Vitals Vital Signs Date Time Temp Pulse Resp B/P Pulse Ox O2 Delivery O2 Flow Rate FiO2 01/28/17 08:04 92 3.00 01/28/17 08:00 96.3 80 20 141/77 95 01/28/17 00:00 96.1 93 18 139/83 94 01/27/17 20:00 97.6 96 18 156/90 94 01/27/17 19:30 93 Nasal Cannula 3.00 01/27/17 16:00 97.7 99 21 147/90 91 I/O 01/27/17 01/27/17 01/27/17 01/28/17 01/28/17 01/28/17 07:00 15:00 23:00 07:00 15:00 23:00 Intake Total 850 ml 120 ml 240 ml Output Total 500 ml 550 ml 650 ml 450 ml Balance -500 ml 300 ml -530 ml -210 ml Intake Oral 850 ml 120 ml 240 ml IV Total 0 ml Output Urine Total 500 ml 550 ml 650 ml 450 ml # Bowel Movements 0 0 Result Diagram: 01/27/17 0703 01/28/17 0622 Objective Remarks GENERAL: This is a well-nourished, well-developed patient, in no apparent distress. CARDIOVASCULAR: Regular rate and rhythm without murmurs, gallops, or rubs. RESPIRATORY: Clear to auscultation. Breath sounds equal bilaterally. No wheezes , rales, or rhonchi. GASTROINTESTINAL: Abdomen soft, non-tender, mildly distended with fluid wave. Hypo-active bowel sounds MUSCULOSKELETAL: Right hand underdeveloped, other 3 Extremities without clubbing , cyanosis, there is trace edema. NEURO: Legally blind. Right sclerotic eye. Alert & Oriented x4 to person, place, time, situation. Moves all ext x4 A/P Problem List: (1) Ascites ICD Code: R18.8 Status: Acute (2) Hypoxia ICD Code: R09.02 Status: Acute (3) Urinary tract infection ICD Code: N39.0 Status: Acute (4) ARF (acute renal failure) ICD Code: N17.9 Status: Acute (5) DM2 (diabetes mellitus, type 2) ICD Code: E11.9 Status: Acute Problem Qualifiers (1) Ascites: Qualified Code: R18.8 - Other ascites (2) Urinary tract infection: Qualified Code: N30.00 - Acute cystitis without hematuria Monica Hadley MD Jan 28, 2017 12:29
--- NOTE | 2017-01-28 13:11 | ECHRPT ---
Indication: Shortness of breath CONCLUSIONS The left ventricle is not well visualized. estmiated ef @ 50% The right ventricle was not well visualized. BP: / HR: Rhythm: Sinus Technical Quality:Technically difficult study FINDINGS LEFT VENTRICLE The left ventricle is not well visualized. RIGHT VENTRICLE The right ventricle was not well visualized. LEFT ATRIUM The left atrial size is normal. RIGHT ATRIUM The right atrial size is normal. ATRIAL SEPTUM Normal atrial septal thickness without atrial level shunting by limited color doppler interrogation. AORTA The aortic root and proximal ascending aorta are normal in size on limited imaging. MITRAL VALVE Structurally normal mitral valve. No mitral valve stenosis or regurgitation. AORTIC VALVE Trileaflet aortic valve. No aortic valve stenosis or regurgitation. TRICUSPID VALVE Structurally normal tricuspid valve. No tricuspid valve stenosis or regurgitation. PULMONARY VALVE The pulmonary valve is not well visualized. VESSELS The inferior vena cava is normal in size. PERICARDIUM No pericardial effusion. César Hernandez MD, FACC, FSCAI (Electronically Signed) Final Date:28 January 2017 13:09
[2017-01-28] MEDS: CARVEDILOL 12.5 MG TAB PO SCH ×2 (13:52→21:00)
--- NOTE | 2017-01-28 13:54 | HHI.PR ---
Subjective Remarks Patient seen s/p paracentesis of 7.1 liters yesterday, SOme nausea after procedure but this is resolved. Patient denies Hysterectomy but now admits a remote hx of cervical CA medically managed. Breathing better an doxygenatio improved. Objective Vitals Vital Signs Date Time Temp Pulse Resp B/P Pulse Ox O2 Delivery O2 Flow Rate FiO2 01/28/17 12:00 95.7 88 20 150/81 95 01/28/17 08:04 92 3.00 01/28/17 08:00 96.3 80 20 141/77 95 01/28/17 00:00 96.1 93 18 139/83 94 01/27/17 20:00 97.6 96 18 156/90 94 01/27/17 19:30 93 Nasal Cannula 3.00 01/27/17 16:00 97.7 99 21 147/90 91 I/O 01/27/17 01/27/17 01/27/17 01/28/17 01/28/17 01/28/17 07:00 15:00 23:00 07:00 15:00 23:00 Intake Total 850 ml 120 ml 240 ml Output Total 500 ml 550 ml 650 ml 450 ml 650 ml Balance -500 ml 300 ml -530 ml -210 ml -650 ml Intake Oral 850 ml 120 ml 240 ml IV Total 0 ml Output Urine Total 500 ml 550 ml 650 ml 450 ml 650 ml # Bowel Movements 0 0 Result Diagram: 01/27/17 0703 01/28/17 0622 Imaging Last Impressions Cyst Biopsy Asp-Paracentesis US 01/27/17 0000 Signed Impressions: Service Date/Time: Friday, January 27, 2017 11:00 - CONCLUSION: Uncomplicated ultrasound guided paracentesis. Juan Pleitez MD Abdomen/Pelvis CT 01/26/17 1349 Signed Impressions: Service Date/Time: Thursday, January 26, 2017 14:38 - CONCLUSION: 1. Moderate to large amount of ascites without definitive etiology identified on CT. No definitive mesenteric mass or hepatic volume loss. Evaluation of the mesentery and liver are however limited due to lack of IV contrast. 2. Periumbilical anterior bowel wall hernia containing fat and ascites fluid. Myke Kendall MD Chest X-Ray 01/26/17 1155 Signed Impressions: Service Date/Time: Thursday, January 26, 2017 12:13 - CONCLUSION: Underinflated examination with atelectasis at the bases. No acute finding is identified. Sriram Paul MD Renal Ultrasound 01/26/17 0000 Signed Impressions: Service Date/Time: Thursday, January 26, 2017 17:59 - CONCLUSION: Ultrasound appearance of the kidneys and urinary bladder within normal limits. Sriram Kaufman MD Objective Remarks GENERAL: This is a well-nourished, well-developed patient, in no apparent distress. CARDIOVASCULAR: Regular rate and rhythm without murmurs, gallops, or rubs. RESPIRATORY: Clear to auscultation. Breath sounds equal bilaterally. No wheezes , rales, or rhonchi. GASTROINTESTINAL: Abdomen soft, non-tender, not distended. Hypo-active bowel sounds MUSCULOSKELETAL: Right hand underdeveloped, other 3 Extremities without clubbing , cyanosis, there is trace edema. NEURO: Legally blind. Right sclerotic eye. Alert & Oriented x4 to person, place, time, situation. Moves all ext x4 Procedures paracentesis 7.1 Liters A/P Problem List: (1) Ascites ICD Code: R18.8 Status: Acute Plan: Etiology unclear at this time, s/p diagnostic and therapeutic paracentesis. Lasix as needed patient with a history of cholecystectomy and cervical CA Recent bowel change for 2 weeks with constipation (2) Hypoxia ICD Code: R09.02 Status: Acute Plan: Likely due to abdominal distention from ascites Continue oxygen as needed Echocardiogram to rule out congestive heart failure hypoxemia on ABG Improved after Paracentesis (3) Urinary tract infection ICD Code: N39.0 Status: Acute Plan: Continue with empiric Rocephin, cultures show ecoli (4) ARF (acute renal failure) ICD Code: N17.9 Status: Acute Plan: Etiology unclear, will treat UTI and follow urine output avoid captopril and other nephrotoxic medication Improved (5) DM2 (diabetes mellitus, type 2) ICD Code: E11.9 Status: Acute Plan: continue patient's home medications Diabetic diet (6) HTN (hypertension) ICD Code: I10 Status: Acute Plan: acei held Add BB Problem Qualifiers (1) Ascites: Qualified Code: R18.8 - Other ascites (2) Urinary tract infection: Qualified Code: N30.00 - Acute cystitis without hematuria Monica Hadley MD Jan 28, 2017 13:54
[2017-01-28 16:33] LABS: HEMOGLOBIN A1a 2.1 %; HEMOGLOBIN A1b 1.1 %; HEMOGLOBIN Ao 79.5 %; HEMOGLOBIN F 1.6 %; HEMOGLOBIN LA1C 2.1 %; HEMOGLOBIN P3 4.3 %
--- NOTE | 2017-01-28 16:51 | RADHPO ---
EXAM DATE/TIME: 01/28/2017 15:13 [facility] COMPARISON: No previous studies available for comparison. INDICATIONS : Distention. MEDICAL HISTORY : Cervical cancer. SURGICAL HISTORY : None. ENCOUNTER: Initial ACUITY: 2 days PAIN SCORE: Non-responsive. LOCATION: Abdomen, all quadrants. FINDINGS: Contrast identified within the colon. Significant bowel dilatation is not clearly seen. There are clips in the right upper quadrant. There is degenerative change in the lumbar spine. Fr ee air is not clearly seen. CONCLUSION: No definite bowel dilatation or free air is seen. Sriram Sunshine MD on January 28, 2017 at 16:44 Board Certified Radiologist. This report was verified electronically.
[2017-01-28] MEDS: cefTRIAXone INJ 2,000 MG in SODIUM CHLORIDE 0.9% INJ 100 ML IV SCH (17:51)
[2017-01-29] VITALS (7 sets, daily range): BP systolic 116–143; BP diastolic 73–81; PULSE 79–90; RESP 18–20; TEMP 95.6–98; O2SAT 93–98
[2017-01-29] MEDS: INSULIN ASPART SUPPLEMENTAL SCALE SQ SCH ×4 (06:22→20:34)
[2017-01-29 06:59] LABS: POTASSIUM 3.8 MEQ/L (3.5-5.1)
[2017-01-29 07:03] LABS: BICARBONATE 34.5 MEQ/L (21.0-32.0)
[2017-01-29] MEDS: glyBURIDE 5 MG TAB PO SCH (08:54)
[2017-01-29] MEDS: FUROSEMIDE 20 MG/2 ML VIAL IV PUSH SCH (08:55)
[2017-01-29] MEDS: CARVEDILOL 12.5 MG TAB PO SCH ×2 (08:55→20:16)
[2017-01-29] MEDS: DOCUSATE SODIUM 50 MG/SENNA 8.6 MG TAB PO SCH ×2 (09:00→20:16)
[2017-01-29] MEDS: BRIMONIDINE TARTRATE 0.2% OPHT SOLN 5 ML BTL EACH EYE SCH ×2 (09:00→20:24)
[2017-01-29] MEDS: TIMOLOL MALEATE 0.5% OPHT SOLN 5 ML BTL EACH EYE SCH ×2 (09:00→20:16)
[2017-01-29] MEDS: INSULIN HUMAN NPH/R 70/30 1,000 UNITS/10 ML VIAL SQ SCH (09:00)
[2017-01-29] MEDS: SODIUM CHLORIDE 0.9% FLUSH 10 ML FLUSH IV FLUSH SCH ×2 (09:03→20:23)
--- NOTE | 2017-01-29 11:12 | HHI.PR ---
Subjective Remarks Patient seen and evaluated today in follow-up for ascites of unknown etiology. Vomiting today. Still no bowel movement in 3 days. GI consult pending. Fluid analysis pending. Renal function back to baseline Objective Vitals Vital Signs Date Time Temp Pulse Resp B/P Pulse Ox O2 Delivery O2 Flow Rate FiO2 01/29/17 08:00 98.0 84 18 143/77 94 01/29/17 00:00 95.6 90 18 116/73 96 01/28/17 20:20 96 Nasal Cannula 3.00 01/28/17 20:00 97.3 87 18 144/69 95 01/28/17 20:00 95 Nasal Cannula 2.00 01/28/17 15:35 97.7 88 20 139/66 95 01/28/17 12:00 95.7 88 20 150/81 95 I/O 01/28/17 01/28/17 01/28/17 01/29/17 01/29/17 01/29/17 06:59 14:59 22:59 06:59 14:59 22:59 Intake Total 240 ml 240 ml 0 ml Output Total 450 ml 650 ml 400 ml 650 ml Balance -210 ml -650 ml -160 ml -650 ml Intake Oral 240 ml 240 ml 0 ml IV Total 0 ml Output Urine Total 450 ml 650 ml 400 ml 650 ml Result Diagram: 01/27/17 0703 01/29/17 0620 Imaging Last Impressions Abdomen X-Ray 01/28/17 0600 Signed Impressions: Service Date/Time: Saturday, January 28, 2017 15:13 - CONCLUSION: No definite bowel dilatation or free air is seen. Sriram Sunshine MD Cyst Biopsy Asp-Paracentesis US 01/27/17 0000 Signed Impressions: Service Date/Time: Friday, January 27, 2017 11:00 - CONCLUSION: Uncomplicated ultrasound guided paracentesis. Juan Pleitez MD Abdomen/Pelvis CT 01/26/17 1349 Signed Impressions: Service Date/Time: Thursday, January 26, 2017 14:38 - CONCLUSION: 1. Moderate to large amount of ascites without definitive etiology identified on CT. No definitive mesenteric mass or hepatic volume loss. Evaluation of the mesentery and liver are however limited due to lack of IV contrast. 2. Periumbilical anterior bowel wall hernia containing fat and ascites fluid. Myke Kendall MD ADDENDUM: Reexamination of the pelvic CT exam does demonstrate a small uterus which appears unremarkable by CT. The uterus was originally reported as surgically absent. Myke Kendall MD Chest X-Ray 01/26/17 1155 Signed Impressions: Service Date/Time: Thursday, January 26, 2017 12:13 - CONCLUSION: Underinflated examination with atelectasis at the bases. No acute finding is identified. Sriram Paul MD Renal Ultrasound 01/26/17 0000 Signed Impressions: Service Date/Time: Thursday, January 26, 2017 17:59 - CONCLUSION: Ultrasound appearance of the kidneys and urinary bladder within normal limits. Sriram Kaufman MD Objective Remarks GENERAL: This is a well-nourished, well-developed patient, in no apparent distress. CARDIOVASCULAR: Regular rate and rhythm without murmurs, gallops, or rubs. RESPIRATORY: Clear to auscultation. Breath sounds equal bilaterally. No wheezes , rales, or rhonchi. GASTROINTESTINAL: Abdomen soft, non-tender, not distended. Hypo-active bowel sounds MUSCULOSKELETAL: Right hand underdeveloped, other 3 Extremities without clubbing , cyanosis, there is trace edema. NEURO: Legally blind. Right sclerotic eye. Alert & Oriented x4 to person, place, time, situation. Moves all ext x4 Procedures paracentesis 7.1 Liters Urinary Catheter: Yes Assessment to: Remove A/P Problem List: (1) Ascites ICD Code: R18.8 Status: Acute Plan: Etiology unclear at this time, s/p diagnostic and therapeutic paracentesis. patient with a history of cholecystectomy and cervical CA Recent bowel change for 2 weeks with constipation KUB unremarkable, continue antiemetics for nausea and vomiting GI follow-up pending (2) Hypoxia ICD Code: R09.02 Status: Acute Plan: Continue oxygen as needed Echocardiogram to rule out congestive heart failure Resolved, likely due to intra-abdominal pressure from ascites (3) Urinary tract infection ICD Code: N39.0 Status: Acute Plan: Continue 7 day therapy for Escherichia coli UTI (4) ARF (acute renal failure) ICD Code: N17.9 Status: Acute Plan: Resolved. Captopril held (5) DM2 (diabetes mellitus, type 2) ICD Code: E11.9 Status: Acute Plan: continue patient's home medications Diabetic diet Hemoglobin A1c greater than 9 Increase sliding scale (6) HTN (hypertension) ICD Code: I10 Status: Acute Plan: Continue with beta waldo, blood pressure improved DINA inhibitor discontinued due to acute kidney injury Assessment and Plan DC White For DVT prophylaxis lmwh Problem Qualifiers (1) Ascites: Qualified Code: R18.8 - Other ascites (2) Urinary tract infection: Qualified Code: N30.00 - Acute cystitis without hematuria Monica Hadley MD Jan 29, 2017 11:12
[2017-01-29] MEDS ORDERED: SOD PHOSPHATE/SOD BIPHOSPHATE (ADULT) ENEMA 133ML RECTAL ONE (12:00)
[2017-01-29] MEDS: ENOXAPARIN SODIUM 40 MG/0.4 ML SYRINGE SQ SCH (12:20)
[2017-01-29 13:08] LABS: BODY FLUID LDH 443 U/L (()); BODY FLUID LDH SOURCE PERITONEAL FLUID (())
[2017-01-29] MEDS: MAGNESIUM HYDROXIDE SUSP 30 ML CUP PO PRN (15:53)
[2017-01-29] MEDS: cefTRIAXone INJ 1,000 MG in SODIUM CHLORIDE 0.9% INJ 100 ML IV SCH (18:14)
[2017-01-30] VITALS (7 sets, daily range): BP systolic 126–162; BP diastolic 78–88; PULSE 95–102; RESP 17–20; TEMP 97.7–98.5; O2SAT 93–98
[2017-01-30 00:46] LABS: FERRITIN 230 NG/ML (8-252); TRANSFERRIN IRON PROFILE 137 MG/DL (200-360)
--- NOTE | 2017-01-30 05:24 | MB ---
cc: DUONG HERNANDEZ M.D. DATE OF CONSULTATION 01/29/[address] Hadley REASON FOR CONSULTATION New onset ascites. HISTORY OF PRESENT ILLNESS Ms. Zimmer is a 62-year-old lady with history of diabetes, admitted to the hospital with increased abdominal distension, urinary tract infection and hypoxia. Workup revealed the presence of ascites which his new. The patient denies any previous history of ascites. She had a paracentesis; final results are pending. Unfortunately no total protein and albumin were sent. She denies any fever or chills, weight loss or weight gain. Never had an endoscopy and colonoscopy and she is not really willing to have one unless absolutely necessary. She also had some nausea and vomiting which improved at this time, currently on clear liquids. She did not have a bowel movement for two weeks. Currently she is receiving laxatives with good results. She does have a history of cervical cancer status post radiation and chemotherapy followed in the past by Dr. Shen. Did not have any recent followup. This diagnosis was back in 2003. She also had an umbilical hernia. She stated for the last 2 weeks or so it hot harder. PAST MEDICAL HISTORY 1. Diabetes. 2. Hypertension. 3. Diabetic neuropathy and retinopathy. 4. 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 5. Cervical cancer status post radiation and chemotherapy. No history of hysterectomy. ALLERGIES PENICILLIN. FAMILY HISTORY Diabetes and CVA. SOCIAL HISTORY Denies smoking, drinking or drug use. PHYSICAL EXAMINATION GENERAL: On clinical examination she is sitting comfortably in bed in no acute distress, morbidly obese. VITAL SIGNS: Blood pressure 143/77, temperature 98, pulse 84, respiration 18. HEENT: PERRLA. Right eye blind secondary to cataract. NECK: No JVD. No lymphadenopathy. CHEST: Clear to auscultation and palpation. CARDIOVASCULAR: S1, S2. No murmur. ABDOMEN: Soft, nontender, distended. Umbilical hernia very hard, indurated. Bowel sounds are present. INTERLACER: Awake, alert, oriented x 3. 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 LABORATORY DATA Hemoglobin of 14.6, white count 12.4, platelets 304. PT/INR normal. Her chemistry is suggestive of BUN of 27, creatinine 1.7, LDH 256, albumin 2.5. She had a urinalysis which showed WBC of 100-200 with many clumps present, bacteria. She has the paracenteses. Peritoneal fluid showed the presence of the LDH 443, amylase 21, WBC 790, RBC 2030, neutrophils 2%, lymphocytes 62%, mesothelial cells 36%. Unfortunately the total protein and albumin were not done, unclear why. As per description of Interventional Radiology, approximately 7 liters removed. There is no description of the color of the fluid removed. IMPRESSION New onset ascites. Unfortunately, the total protein and albumin were not sent; unclear to determine if this is portal hypertension or not. I would doubt this is related to that but for further evaluation this information will need to be available. A CT abdomen and pelvis was also performed and this showed moderate to large amount of ascites. No masses were noted. Periumbilical anterior bowel wall hernia containing fat and ascitic fluid. RECOMMENDATIONS 1. Await cytology report. 2. General Surgery consultation for evaluation of the umbilical hernia which at this time is not reducible and is indurated. 3. In view of history of cervical cancer, new onset ascites, concern for possible malignant ascites is raised. 4. tumor markers. Await cytology report. 5. May need repeat paracentesis with his fluid with fluid sent for total protein, albumin and possible repeat cytology if this is negative for malignancy. 6. May consider peritoneal biopsy if no indication of portal hypertension. 7. We could also send hepatitis profile and immunology and serology to rule out underlying liver pathology which I doubt in this case. 8. May consider endoscopy and colonoscopy if she agrees at this time. She is refusing. 9. Constipation - continue laxatives. I would like to thank Dr. Hadley for referring her to our office for consultation. MD CALE PazB/ASHOK /7:58 PM /5:06 AM [id number]
[2017-01-30] MEDS: ONDANSETRON HCL 4 MG/2 ML VIAL IVP PRN ×2 (06:48→19:56)
[2017-01-30] MEDS: INSULIN ASPART SUPPLEMENTAL SCALE SQ SCH ×4 (07:00→21:00)
[2017-01-30] MEDS: TIMOLOL MALEATE 0.5% OPHT SOLN 5 ML BTL EACH EYE SCH ×2 (09:00→21:00)
[2017-01-30] MEDS: INSULIN HUMAN NPH/R 70/30 1,000 UNITS/10 ML VIAL SQ SCH (09:00)
[2017-01-30] MEDS: DOCUSATE SODIUM 50 MG/SENNA 8.6 MG TAB PO SCH ×3 (09:00→20:01)
[2017-01-30] MEDS: CARVEDILOL 12.5 MG TAB PO SCH ×4 (09:00→20:07)
[2017-01-30] MEDS: glyBURIDE 5 MG TAB PO SCH (09:00)
[2017-01-30] MEDS: BRIMONIDINE TARTRATE 0.2% OPHT SOLN 5 ML BTL EACH EYE SCH ×2 (09:33→20:00)
[2017-01-30] MEDS: SODIUM CHLORIDE 0.9% FLUSH 10 ML FLUSH IV FLUSH SCH ×2 (09:34→20:01)
[2017-01-30] MEDS ORDERED: PROCHLORPERAZINE INJ 10 MG/2 ML VIAL IV PUSH PRN (11:00)
--- NOTE | 2017-01-30 11:31 | HHI.PR ---
Subjective Remarks Patient seen today in follow up for ascites and gi complaints. Nausea and vomiting today, watery BM today GI consult appreciated Peritoneal Protein not "cancelled" sent to [facility] in [place] and Cytology is in [place] Objective Vitals Vital Signs Date Time Temp Pulse Resp B/P Pulse Ox O2 Delivery O2 Flow Rate FiO2 01/30/17 08:02 Nasal Cannula 3.00 01/30/17 08:00 97.7 97 18 154/86 94 01/30/17 07:43 93 Nasal Cannula 3.00 01/30/17 00:00 98.5 102 20 126/85 93 01/29/17 20:00 96 Nasal Cannula 3.00 01/29/17 20:00 96.0 79 20 125/81 96 01/29/17 19:25 96 Nasal Cannula 3.00 01/29/17 16:00 97.7 79 19 131/79 98 01/29/17 12:00 97.9 81 19 138/79 95 I/O 01/29/17 01/29/17 01/29/17 01/30/17 01/30/17 01/30/17 07:00 15:00 23:00 07:00 15:00 23:00 Intake Total 0 ml 220 ml 120 ml Output Total 650 ml 300 ml 125 ml 300 ml Balance -650 ml -300 ml 95 ml -180 ml Intake Oral 0 ml 220 ml 120 ml Output Urine Total 650 ml 300 ml Emesis 125 ml 300 ml # Voids 1 2 # Bowel Movements 2 0 Result Diagram: 01/27/17 0703 01/29/17 0620 Objective Remarks GENERAL: This is a well-nourished, well-developed patient, nausea CARDIOVASCULAR: Regular rate and rhythm without murmurs, gallops, or rubs. RESPIRATORY: Clear to auscultation. Breath sounds equal bilaterally. No wheezes , rales, or rhonchi. GASTROINTESTINAL: Abdomen soft, non-tender, not distended. Hypo-active bowel sounds. umbilical hernia MUSCULOSKELETAL: Right hand underdeveloped, other 3 Extremities without clubbing , cyanosis, there is trace edema. NEURO: Legally blind. Right sclerotic eye. Alert & Oriented x4 to person, place, time, situation. Moves all ext x4 Procedures paracentesis 7.1 Liters A/P Problem List: (1) Ascites ICD Code: R18.8 Status: Acute Plan: Etiology unclear at this time, s/p diagnostic and therapeutic paracentesis 7.1 liters patient with a history of cholecystectomy and cervical CA (xrt and chemo) Recent bowel change for 2 weeks with constipation KUB unremarkable, continue antiemetics for nausea and vomiting GI follow-up appreciated (2) Hypoxia ICD Code: R09.02 Status: Acute Plan: Continue oxygen as needed Echocardiogram to rule out congestive heart failure Resolved, likely due to intra-abdominal pressure from ascites (3) Urinary tract infection ICD Code: N39.0 Status: Acute Plan: Continue 7 day therapy for Escherichia coli UTI (4) ARF (acute renal failure) ICD Code: N17.9 Status: Acute Plan: Resolved. Captopril held ptn refused coreg BP stable (5) DM2 (diabetes mellitus, type 2) ICD Code: E11.9 Status: Acute Plan: continue patient's home medications Diabetic diet Hemoglobin A1c greater than 9 Increase sliding scale (6) HTN (hypertension) ICD Code: I10 Status: Acute Plan: Continue with beta waldo, blood pressure improved DINA inhibitor discontinued due to acute kidney injury patient refused coreg (7) Umbilical hernia ICD Code: K42.9 Status: Acute Plan: surg eval pending (8) Constipation ICD Code: K59.00 Status: Acute Plan: s/p enema, bowel regimen refuses endoscopy KUB unremarkable clear liquids and antiemetics Assessment and Plan For DVT prophylaxis lmwh Problem Qualifiers (1) Ascites: Qualified Code: R18.8 - Other ascites (2) Urinary tract infection: Qualified Code: N30.00 - Acute cystitis without hematuria Monica Hadley MD Jan 30, 2017 11:31
[2017-01-30 14:05] LABS: ANA SCREEN NEG (NEG)
[2017-01-30] MEDS: ENOXAPARIN SODIUM 40 MG/0.4 ML SYRINGE SQ SCH (15:40)
--- NOTE | 2017-01-30 17:33 | PD.CONS ---
[facility] Service General Surgery Consult Requested By Dr. Peterson Reason for Consult Evaluation of umbilical hernia--non-reducible Peritoneal biopsy Primary Care Physician Erin Frazier MD History of Present Illness This is a 62-year-old female with a past medical history of diabetes mellitus type 2, frequent urinary tract infections, legally blind, hypertension, and diabetic neuropathy who comes to the emergency room for evaluation of fluid in her abdomen. She has had an umbilical hernia ever since she can remember. It does not cause her problems. She does report positive bowel movements. A CT abdomen and pelvis was obtained which showed a large amount of ascites. A paracentesis was performed and 7.1 L removed. The patient states she feels much better. A Gen. surgery consultation has been requested for evaluation of umbilical hernia and possible peritoneal biopsy due to unexplained ascites. Review of Systems Constitutional: DENIES: Fever, Chills Endocrine: DENIES: Heat/cold intolerance Eyes: COMPLAINS OF: Vision loss (chronic) Ears, nose, mouth, throat: DENIES: Hearing loss Respiratory: DENIES: Apneas Cardiovascular: DENIES: Chest pain Gastrointestinal: COMPLAINS OF: Abdominal pain, DENIES: Nausea, Vomiting Genitourinary: COMPLAINS OF: Urinary frequency, Urinary incontinence Musculoskeletal: DENIES: Joint pain Integumentary: DENIES: Abnormal pigmentation Hematologic/lymphatic: DENIES: Bruising Immunologic/allergic: DENIES: Eczema Neurologic: DENIES: Headache, Paresthesias Psychiatric: DENIES: Mood changes, Depression, Hallucinations Past Family Social History Past Medical History Diabetes mellitus type 2 Frequent urinary tract infections Hypertension Diabetic neuropathy Past Surgical History Open cholecystectomy done in [place] Reported Medications Catapres oh Magnesium oxide Xanax Timolol eye drops Brimonidine eye drops Novolin Ocuvite Aspirin Hydrochlorothiazide Glyburide Allergies: Coded Allergies: Penicillin (Verified Allergy, Severe, SWELLING, 01/26/17) Active Ordered Medications Current Medications Medications (Trade) Dose Ordered Sig/Rigoberto Route Start Time Stop Time Status Last Admin (NS Flush) 2 ml UNSCH PRN IV FLUSH 01/26/17 16:15 (NS Flush) 2 ml BID IV FLUSH 01/26/17 21:00 01/30/17 09:34 (Zofran Inj) 4 mg Q6H PRN IVP 01/26/17 16:15 01/30/17 06:48 (D50w (Vial) Inj) 50 ml UNSCH PRN IV 01/26/17 16:15 (Glucagon Inj) 1 mg UNSCH PRN OTHER 01/26/17 16:15 (Xanax) 0.5 mg Q8H PRN PO 01/26/17 16:15 01/27/17 10:22 (Alphagan 0.2% Opth Soln) 1 drop BID EACH EYE 01/26/17 21:00 01/30/17 09:33 (Diabeta) 5 mg DAILY PO 01/27/17 09:00 Hold 01/29/17 08:54 (NovoLIN 70/30 INJ) 40 units DAILY SQ 01/27/17 09:00 Hold 01/29/17 09:00 (Timoptic 0.5% Opth Soln) 1 drop BID EACH EYE 01/26/17 21:00 01/27/17 21:00 (Astrid-Colace) 1 tab BID PO 01/27/17 21:00 01/29/17 09:00 (Milk Of Magnesia Liq) 30 ml Q12H PRN PO 01/27/17 17:00 01/29/17 15:53 (Senokot) 17.2 mg Q12H PRN PO 01/27/17 17:00 01/27/17 18:55 (Dulcolax Supp) 10 mg DAILY PRN RECTAL 01/27/17 17:00 (Lactulose Liq) 30 ml DAILY PRN PO 01/27/17 17:00 01/27/17 18:55 Carvedilol 12.5 mg 12.5 mg Q12HR PO 01/28/17 13:52 (Rocephin Inj/NS Inj) 100 ml @ 200 mls/hr Q24H IV 01/29/17 18:00 01/29/17 18:14 (Lovenox Inj) 40 mg Q24H SQ 01/29/17 12:00 01/30/17 15:40 (Compazine Inj) 10 mg Q8H PRN IV PUSH 01/30/17 11:00 Family History Parents both had diabetes Social History Denies tobacco use Denies EtOH use Denies illicit drug use Physical Exam Vital Signs Vital Signs Date Time Temp Pulse Resp B/P Pulse Ox O2 Delivery O2 Flow Rate FiO2 01/30/17 15:31 98.0 97 17 130/88 98 01/30/17 12:00 97.8 99 19 146/82 95 01/30/17 09:15 Nasal Cannula 3.00 01/30/17 08:02 Nasal Cannula 3.00 01/30/17 08:00 97.7 97 18 154/86 94 01/30/17 07:43 93 Nasal Cannula 3.00 01/30/17 00:00 98.5 102 20 126/85 93 01/29/17 20:00 96 Nasal Cannula 3.00 01/29/17 20:00 96.0 79 20 125/81 96 01/29/17 19:25 96 Nasal Cannula 3.00 Physical Exam GENERAL: Obese 62 year old female resting in bed in no acute distress. SKIN: Warm and dry. HEAD: Atraumatic. Normocephalic. EYES: Legally blind. ENT: No nasal bleeding or discharge. Mucous membranes pink and moist. NECK: Trachea midline. CARDIOVASCULAR: Regular rate and rhythm. RESPIRATORY: No accessory muscle use. Clear to auscultation. Breath sounds equal bilaterally. GASTROINTESTINAL: Abdomen soft, non-tender, nondistended; obese. Non-reducible umbilical hernia without pain. MUSCULOSKELETAL: Extremities without clubbing, cyanosis, or edema. No obvious deformities. NEUROLOGICAL: Awake and alert. No obvious cranial nerve deficits. Motor grossly within normal limits. Five out of 5 muscle strength in the arms and legs. Normal speech. PSYCHIATRIC: Appropriate mood and affect; insight and judgment normal. Laboratory Laboratory Tests Test 01/29/17 21:00 Iron Level 30 Total Iron Binding Capacity 192 Percent Iron Saturation 15.6 Ferritin 230 Tumor Marker Alpha Fetoprotein 1.2 Carcinoembryonic Antigen 1.1 CA 19-9 Antigen 21.2 CA 125 Antigen 348.8 Anti-Nuclear Antibody Screen NEG Hepatitis A IgM Antibody NEGATIVE Hepatitis B Surface Antigen NEGATIVE Hepatitis B Core IgM Antibody NEGATIVE Hepatitis C Antibody NEGATIVE Date/Time Procedure Status Source Growth 01/27/17 12:20 Gram Stain - Final Complete Fluid Peritoneal Fluid 01/27/17 12:20 Body Fluid Culture - Final Complete Fluid Peritoneal Fluid NO GROWTH IN 72 HRS.--AEROBICALLY OR ... 01/26/17 13:20 Urine Culture - Final Complete Urine Catheterized Urine Escherichia Coli Result Diagram: 01/27/17 0703 01/29/[address] abdomen/pelvis- moderate to large amount of ascites without definitive etiology. The umbilical anterior bowel wall hernia containing fat and ascites fluid. Assessment and Plan Assessment and Plan 62-year-old female with new onset of ascites status post paracentesis with 7.1 L removed; Umbilical hernia -Etiology of ascites unclear at this time -CA 125 elevated; suspect malignant ascites -Will consult Dr. Tinoco in the morning -Will plan laparoscopy -GI also following -Thank you for this consult; we will continue to follow Kalpana Jaquez Jan 30, 2017 17:33
[2017-01-30] MEDS: cefTRIAXone INJ 1,000 MG in SODIUM CHLORIDE 0.9% INJ 100 ML IV SCH (19:12)
--- NOTE | 2017-01-30 19:19 | HHI.GIFU ---
Subjective Remarks feels slightly better, less abdominal pain, no nausea or vomiting, had BM Objective Vitals I&O Vital Signs Date Time Temp Pulse Resp B/P Pulse Ox O2 Delivery O2 Flow Rate FiO2 01/30/17 15:31 98.0 97 17 130/88 98 01/30/17 12:00 97.8 99 19 146/82 95 01/30/17 09:15 Nasal Cannula 3.00 01/30/17 08:02 Nasal Cannula 3.00 01/30/17 08:00 97.7 97 18 154/86 94 01/30/17 07:43 93 Nasal Cannula 3.00 01/30/17 00:00 98.5 102 20 126/85 93 01/29/17 20:00 96 Nasal Cannula 3.00 01/29/17 20:00 96.0 79 20 125/81 96 01/29/17 19:25 96 Nasal Cannula 3.00 I/O 01/29/17 01/29/17 01/29/17 01/30/17 01/30/17 01/30/17 07:00 15:00 23:00 07:00 15:00 23:00 Intake Total 0 ml 220 ml 120 ml Output Total 650 ml 300 ml 125 ml 300 ml Balance -650 ml -300 ml 95 ml -180 ml Intake Oral 0 ml 220 ml 120 ml Output Urine Total 650 ml 300 ml Emesis 125 ml 300 ml # Voids 1 2 4 # Bowel Movements 2 0 1 Laboratory Laboratory Tests Test 01/29/17 21:00 Iron Level 30 Total Iron Binding Capacity 192 Percent Iron Saturation 15.6 Ferritin 230 Tumor Marker Alpha Fetoprotein 1.2 Carcinoembryonic Antigen 1.1 CA 19-9 Antigen 21.2 CA 125 Antigen 348.8 Anti-Nuclear Antibody Screen NEG Hepatitis A IgM Antibody NEGATIVE Hepatitis B Surface Antigen NEGATIVE Hepatitis B Core IgM Antibody NEGATIVE Hepatitis C Antibody NEGATIVE Date/Time Procedure Status Source Growth 01/27/17 12:20 Gram Stain - Final Complete Fluid Peritoneal Fluid 01/27/17 12:20 Body Fluid Culture - Final Complete Fluid Peritoneal Fluid NO GROWTH IN 72 HRS.--AEROBICALLY OR ... 01/26/17 13:20 Urine Culture - Final Complete Urine Catheterized Urine Escherichia Coli Physical Exam HEENT: Pupils round and reactive to light; normocephalic; atraumatic; no jaundice. Throat is clear. NECK: Neck is supple, no JVD, no lymphadenopathy. CHEST: Chest is clear to auscultation and percussion. CARDIAC: Regular rate and rhythm with no murmur gallop or rubs. ABDOMEN: Soft, distended, rosa jim area tenderness; no hepatosplenomegaly; bowel sounds are present in all four quadrants. EXTREMITIES: No clubbing, cyanosis, +1 edema. SKIN: Normal; no rash; no jaundice. WARM IN: No focal deficits; alert and oriented times three. Assessment and Plan Plan ascites not clear etiology yet, high CA 125, possible ovarian cancer. DR Calvillo will do laparoscopy in next few days for evaluation I doubt this is a GI malignancy but if the laparoscopy is negative we will consider colon EGD Layo Matta MD Jan 30, 2017 19:19
[2017-01-31] VITALS (7 sets, daily range): BP systolic 115–128; BP diastolic 59–84; PULSE 90–102; RESP 20; TEMP 96.6–98.4; O2SAT 92–96
[2017-01-31] MEDS: INSULIN ASPART SUPPLEMENTAL SCALE SQ SCH ×4 (07:00→21:00)
[2017-01-31] MEDS: DOCUSATE SODIUM 50 MG/SENNA 8.6 MG TAB PO SCH ×2 (09:00→21:00)
[2017-01-31] MEDS: TIMOLOL MALEATE 0.5% OPHT SOLN 5 ML BTL EACH EYE SCH ×2 (09:00→21:00)
[2017-01-31] MEDS: BRIMONIDINE TARTRATE 0.2% OPHT SOLN 5 ML BTL EACH EYE SCH ×2 (09:00→21:57)
[2017-01-31] MEDS: CARVEDILOL 12.5 MG TAB PO SCH ×2 (09:00→21:00)
[2017-01-31] MEDS: SODIUM CHLORIDE 0.9% FLUSH 10 ML FLUSH IV FLUSH SCH ×2 (09:00→21:57)
--- NOTE | 2017-01-31 09:42 | MB ---
cc: DELLA VICENET M.D. DATE OF CONSULTATION 01/31/[address] Hadley REASON FOR CONSULTATION Oncology consulted to render opinion regarding patient with new onset ascites suspicious for malignancy. HISTORY OF PRESENT ILLNESS Patient is a 62-year-old obese female who presented to the hospital with a complaint of increased abdominal distension and tenderness. She stated it started about two weeks ago when she started noticing increasing abdominal girth. She began to have increased pressure and came into the hospital. She also has decreased urine output. She stated she was constipated but had a good bowel movement yesterday. She had a history of cervical cancer treated with radiation and chemotherapy in 2003. She denies any vaginal bleeding. Denies any fever, chills, night sweat. Denies significant weight loss. Denies any chest pain, palpitation, shortness of breath or cough. Denies any melena or hematochezia. She had malodorous urine when she first came in, but that has resolved. PAST MEDICAL HISTORY 1. Cervical cancer treated with chemotherapy and radiation in 2003. She was under the care of Dr. Shen at that time. 2. Diabetes mellitus 3. Recurrent urinary tract infection 4. Hypertension 5. Nephropathy, neuropathy and retinopathy 6. Right eye blindness PAST SURGICAL HISTORY 1. Cholecystectomy 2. Port placement and removal FAMILY HISTORY One sister of pancreatic cancer to liver and has a brother and one other sister. She has a son who was killed in an accident. SOCIAL HISTORY She smokes apparently, but quit more than 25 years ago. She also quit alcohol. She lives alone. ALLERGIES PENICILLIN CURRENT MEDICATIONS. 1. Ceftriaxone 2. Carvedilol 3. Astrid-Colace 4. Alphagan eye drops 5. Timolol eye drops REVIEW OF SYSTEMS CONSTITUTIONAL: Generalized fatigue, but no fever, chills or night sweats. Denies any weight loss. EYES: Denies any blurry vision or double vision. Right eye is blind. ENT: No mouth sores or voice changes. CARDIOVASCULAR: No chest pressure or palpitations. RESPIRATORY: Denies shortness of breath or cough. GI: As above. : As above. MUSCULOSKELETAL: Denies significant pain. HEMATOLOGY: Negative. ENDOCRINE: Negative. DERMATOLOGY: Negative. PSYCHIATRIC: Negative. NEUROLOGIC: Negative. PHYSICAL EXAMINATION VITALS: Temperature 97.3, blood pressure 115/73, O2 saturation 95% on two liters nasal cannula. GENERAL: She is alert and oriented x3 in no acute distress. She is very obese. HEENT: Atraumatic, normocephalic. Pupils equal, round, and reactive light. Extraocular muscles intact. No scleral icterus. Oropharynx has dry mucosa. No lesion. NECK: No thyromegaly. No palpable masses. LYMPHATICS: No palpable cervical, clavicular, axillary or inguinal lymph node. CARDIOVASCULAR: Regular S1-S2, no murmurs. LUNGS: Clear to auscultation anteriorly. ABDOMEN: Distended, soft, positive fluid wave, nontender. EXTREMITIES: No cyanosis or clubbing. No trace ankle edema, has hyperpigmentation of the right lower extremities. SKIN: No rash or petechia. NEUROLOGIC: Nonfocal. BREASTS: The patient declined, but stated on self exam did not reveal any breast mass. LABORATORY DATA Reviewed ASSESSMENT 1. New onset ascites. She noted increased abdominal girth for last two weeks. When she came in, she had a paracentesis with removal 7.1 liters of cloudy yellowish fluid. There is no protein or albumin analysis done. Cytology is still pending. Hepatitis panel was negative. Her tumor marker CA-125 is slightly elevated at 348 which is nonspecific. Alpha-fetoprotein, CEA and CA19-[address] of the abdomen and pelvis without contrast did not show a definite mass, but the study is limited because it was a noncontrast study. She had a history of cervical cancer treated in 2003 and there is a possibility this could be a primary [employer] malignancy. At this point, I am going to get a CT of the chest to see if there is any other lesions or metastatic disease. I will await the cytology of the ascitic fluid. If it is unremarkable, she may need exploratory laparotomy for further evaluation. She is being evaluated by surgery and Dr. Tinoco was consulted. 2. History of cervical cancer treated with chemotherapy and radiation in 2003 as above. 3. Diabetes mellitus 4. Morbid obesity 5. Recurrent urinary tract infection. She is currently on antibiotic. 6. Hypertension 7. Diabetic neuropathy, nephropathy and retinopathy. RECOMMENDATIONS 1. Get CT of the chest. 2. Await fluid cytology 3. Await evaluation by gynecologic oncology. 4. May need an exploratory laparotomy if fluid cytology is unremarkable. Thank you Dr. Haldey for asking us see this patient. MD FRANK Uribe /8:30 AM /9:32 AM [facility]
--- NOTE | 2017-01-31 10:51 | RADRPT ---
EXAM DATE/TIME: 01/31/2017 10:06 [facility] COMPARISON: CT ABDOMEN & PELVIS W/O CONTRAST, January 26, 2017, 14:38. INDICATIONS : Evaluate for neoplasm. RADIATION DOSE: 30.87 CTDIvol (mGy) MEDICAL HISTORY : Hypertension. Diabetes mellitus type 2. Cervical cancer. SURGICAL HISTORY : Cholecystectomy. ENCOUNTER: Initial ACUITY: 1 day PAIN SCALE: 0/10 LOCATION: chest TECHNIQUE: Volumetric scanning of the chest was performed. Using automated exposure control and adjustment of t he mA and/or kV according to patient size, radiation dose was kept as low as reasonably achievable to obtain optimal diagnostic quality images. FINDINGS: Imaging through the pulmonary parenchyma demonstrates minimal effusion in the lung bases. There are a telectatic/inflammatory changes seen in the lower lobes bilaterally. No discrete mass is identified. The heart is normal in size. No hilar or mediastinal adenopathy is present. No axillary adenopathy is seen. There is atherosclerotic plaquing in the coronary arteries. The visualized portion of upper abdomen demonstrates diffuse ascites. The visualized bony structures demonstrate degenerative changes but are otherwise intact. CONCLUSION: 1. No discrete mass lesion identified. 2. Minimal bibasilar effusions with atelectatic changes in the lung bases. 3. No significant adenopathy. Juan Pleitez MD on January 31, 2017 at 10:47 Board Certified Radiologist. This report was verified electronically.
--- NOTE | 2017-01-31 11:29 | HHI.PR ---
Subjective Remarks Patient denies cp/sob denies fevers/chills patient's oxygen saturation down to 92% on 3 liters nasal canula has some abdominal pain on LLQ where she had paracentesis denies nausea or vomiting Objective Vitals Vital Signs Date Time Temp Pulse Resp B/P Pulse Ox O2 Delivery O2 Flow Rate FiO2 01/31/17 09:42 92 Nasal Cannula 3.00 01/31/17 09:04 Nasal Cannula 3.00 21 01/31/17 08:00 97.3 93 20 115/73 95 01/31/17 00:00 96.7 90 20 128/84 96 01/30/17 20:00 98.0 95 20 162/78 98 01/30/17 19:37 94 Nasal Cannula 3.00 01/30/17 15:31 98.0 97 17 130/88 98 01/30/17 12:00 97.8 99 19 146/82 95 I/O 01/30/17 01/30/17 01/30/17 01/31/17 01/31/17 01/31/17 07:00 15:00 23:00 07:00 15:00 23:00 Intake Total 120 ml 240 ml 240 ml Output Total 300 ml Balance -180 ml 240 ml 240 ml Intake Oral 120 ml 240 ml 240 ml Emesis 300 ml # Voids 2 7 2 2 # Bowel Movements 0 1 1 0 Result Diagram: 01/27/17 0703 01/29/17 0620 Imaging Last Impressions Chest CT 01/31/17 0000 Signed Impressions: Service Date/Time: January 10:06 - CONCLUSION: 1. No discrete mass lesion identified. 2. Minimal bibasilar effusions with atelectatic changes in the lung bases. 3. No significant adenopathy. Juan Pleitez MD Abdomen X-Ray 01/28/17 0600 Signed Impressions: Service Date/Time: Saturday, January 28, 2017 15:13 - CONCLUSION: No definite bowel dilatation or free air is seen. Sriram Sunshine MD Cyst Biopsy Asp-Paracentesis US 01/27/17 0000 Signed Impressions: Service Date/Time: Friday, January 27, 2017 11:00 - CONCLUSION: Uncomplicated ultrasound guided paracentesis. Juan Pleitez MD Abdomen/Pelvis CT 01/26/17 1349 Signed Impressions: Service Date/Time: Thursday, January 26, 2017 14:38 - CONCLUSION: 1. Moderate to large amount of ascites without definitive etiology identified on CT. No definitive mesenteric mass or hepatic volume loss. Evaluation of the mesentery and liver are however limited due to lack of IV contrast. 2. Periumbilical anterior bowel wall hernia containing fat and ascites fluid. Myke Kendall MD ADDENDUM: Reexamination of the pelvic CT exam does demonstrate a small uterus which appears unremarkable by CT. The uterus was originally reported as surgically absent. Myke Kendall MD Chest X-Ray 01/26/17 1155 Signed Impressions: Service Date/Time: Thursday, January 26, 2017 12:13 - CONCLUSION: Underinflated examination with atelectasis at the bases. No acute finding is identified. Sriram Paul MD Renal Ultrasound 01/26/17 0000 Signed Impressions: Service Date/Time: Thursday, January 26, 2017 17:59 - CONCLUSION: Ultrasound appearance of the kidneys and urinary bladder within normal limits. Sriram Kaufman MD Objective Remarks GENERAL: This is a well-nourished, well-developed patient, nausea CARDIOVASCULAR: Regular rate and rhythm without murmurs, gallops, or rubs. RESPIRATORY: Clear to auscultation. Breath sounds equal bilaterally. No wheezes , rales, or rhonchi. GASTROINTESTINAL: Abdomen soft, non-tender, not distended. Hypo-active bowel sounds. umbilical hernia MUSCULOSKELETAL: Right hand underdeveloped, other 3 Extremities without clubbing , cyanosis, there is trace edema. NEURO: Legally blind. Right sclerotic eye. Alert & Oriented x4 to person, place, time, situation. Moves all ext x4 Procedures paracentesis 7.1 Liters Medications and IVs Current Medications Medications (Trade) Dose Ordered Sig/Rigoberto Route Start Time Stop Time Status Last Admin (NS Flush) 2 ml UNSCH PRN IV FLUSH 01/26/17 16:15 (NS Flush) 2 ml BID IV FLUSH 01/26/17 21:00 01/30/17 20:01 (Zofran Inj) 4 mg Q6H PRN IVP 01/26/17 16:15 01/30/17 19:56 (D50w (Vial) Inj) 50 ml UNSCH PRN IV 01/26/17 16:15 (Glucagon Inj) 1 mg UNSCH PRN OTHER 01/26/17 16:15 (Xanax) 0.5 mg Q8H PRN PO 01/26/17 16:15 01/27/17 10:22 (Alphagan 0.2% Opth Soln) 1 drop BID EACH EYE 01/26/17 21:00 01/30/17 20:00 (Diabeta) 5 mg DAILY PO 01/27/17 09:00 Hold 01/29/17 08:54 (NovoLIN 70/30 INJ) 40 units DAILY SQ 01/27/17 09:00 Hold 01/29/17 09:00 (Timoptic 0.5% Opth Soln) 1 drop BID EACH EYE 01/26/17 21:00 01/27/17 21:00 (Astrid-Colace) 1 tab BID PO 01/27/17 21:00 01/30/17 20:01 (Milk Of Magnesia Liq) 30 ml Q12H PRN PO 01/27/17 17:00 01/29/17 15:53 (Senokot) 17.2 mg Q12H PRN PO 01/27/17 17:00 01/27/17 18:55 (Dulcolax Supp) 10 mg DAILY PRN RECTAL 01/27/17 17:00 (Lactulose Liq) 30 ml DAILY PRN PO 01/27/17 17:00 01/27/17 18:55 Carvedilol 12.5 mg 12.5 mg Q12HR PO 01/28/17 13:52 (Rocephin Inj/NS Inj) 100 ml @ 200 mls/hr Q24H IV 01/29/17 18:00 01/30/17 19:12 (Lovenox Inj) 40 mg Q24H SQ 01/29/17 12:00 Hold 01/30/17 15:40 (Compazine Inj) 10 mg Q8H PRN IV PUSH 01/30/17 11:00 Urinary Catheter: No Vascular Central Line Catheter: No A/P Problem List: (1) Ascites ICD Code: R18.8 Status: Acute Plan: Etiology unclear at this time, s/p diagnostic and therapeutic paracentesis 7.1 liters patient with a history of cholecystectomy and cervical CA (xrt and chemo) Recent bowel change for 2 weeks with constipation KUB unremarkable, continue antiemetics for nausea and vomiting 01/31 GI follow-up appreciated Gen. surgery consulted. The patient will have laparoscopy Oncology consulted - appreciate recommendations IT ADMINISTRATIVE ASSISTANT oncology consulted. Awaiting recommendations. (2) Hypoxia ICD Code: R09.02 Status: Acute Plan: Likely hypoventilation syndrome from obesity and ascites. Opinion supplemental oxygen to keep oxygen saturation more than 92%. Chest x-ray obtained on shows underinflated examination with atelectasis at the bases. Will order incentive spirometry. (3) Urinary tract infection ICD Code: N39.0 Status: Acute Plan: On IV Rocephin. Continue therapy for a total of 7 days. (4) ARF (acute renal failure) ICD Code: N17.9 Status: Acute Plan: Patient presented with a creatinine of 1.7, down to 0.96. Resolved after IV fluid administration. DINA inhibitor was held. (5) DM2 (diabetes mellitus, type 2) ICD Code: E11.9 Status: Acute Plan: continue patient's home medications Diabetic diet Hemoglobin A1c greater than 9 Blood sugars are uncontrolled and very elevated - Will start the patient on insulin Levemir 10 mg SQ BID (6) HTN (hypertension) ICD Code: I10 Status: Acute Plan: BP stable. DINA inhibitor was held due to ALIREZA. Patient was started on Coreg as per Dr. Hadley, however patient refuses medication. I will start on DINA inhibitor since ALIREZA has resolved. (7) Umbilical hernia ICD Code: K42.9 Status: Acute Plan: General surgery following (8) Constipation ICD Code: K59.00 Status: Acute Plan: s/p enema, bowel regimen refuses endoscopy KUB unremarkable clear liquids and antiemetics Problem Qualifiers (1) Ascites: Qualified Code: R18.0 - Malignant ascites (2) Urinary tract infection: Qualified Code: N30.00 - Acute cystitis without hematuria Julian Byrd MD Jan 31, 2017 11:28
[2017-01-31] MEDS: ONDANSETRON HCL 4 MG/2 ML VIAL IVP PRN (15:45)
[2017-01-31] MEDS: cefTRIAXone INJ 1,000 MG in SODIUM CHLORIDE 0.9% INJ 100 ML IV SCH (16:51)
--- NOTE | 2017-01-31 19:23 | HHI.GIFU ---
GI Follow-up Note Consult Follow-up Subjective: Patient laying in bed , increased abdominal distension. Awaiting final pathology result -possible malignancy.She is being transferred to [facility] for possible laparoscopy , peritoneal biopsy, drainage of ascites . Objective: PHYSICAL EXAMINATION: Vitals signs stable No fever Vital Signs Date Time Temp Pulse Resp B/P Pulse Ox O2 Delivery O2 Flow Rate FiO2 01/31/17 16:00 98.4 99 20 123/77 95 01/31/17 12:00 96.6 94 20 121/73 95 HEENT: Pupils round and reactive to light; normocephalic; atraumatic; no jaundice. Throat is clear. NECK: Neck is supple, no JVD, no lymphadenopathy. CHEST: Chest is clear to auscultation and percussion. CARDIAC: Regular rate and rhythm with no murmur gallop or rubs. ABDOMEN: Soft, distended, nontender; no hepatosplenomegaly; bowel sounds are present in all four quadrants, umbilical hernia indurated EXTREMITIES: No clubbing, cyanosis, or edema. SKIN: Normal; no rash; no jaundice. PRINTED CIRCUIT BOARDS INSPECTOR: No focal deficits; alert and oriented times three. Available Data (labs, X- Rays, Procedues) : Laboratory Tests Test 01/29/17 01/31/17 21:00 13:35 Iron Level 30 MCG/DL Total Iron Binding Capacity 192 MCG/DL Percent Iron Saturation 15.6 % Ferritin 230 NG/ML Tumor Marker Alpha Fetoprotein 1.2 NG/ML Carcinoembryonic Antigen 1.1 NG/ML CA 19-9 Antigen 21.2 U/ML CA 125 Antigen 348.8 U/ML Anti-Nuclear Antibody Screen NEG Hepatitis A IgM Antibody NEGATIVE Hepatitis B Surface Antigen NEGATIVE Hepatitis B Core IgM Antibody NEGATIVE Hepatitis C Antibody NEGATIVE [id number] 290 mg/dL Anti-Smooth Muscle Antibody Negative CA 15-3 Antigen 23.1 U/ML ASSESSMENT/PLAN: new onset ascites-most likely malignant , paracentesis does not suggest portal hypertension recurrent ascites -reaccumulating fast constipation -improving nausea, vomiting -improving Recommendations agree with laparoscopy with peritoneal biopsy await cytology report consider egd/colonoscopy if cytology and laparoscopy negative, patient is reluctant to do so It was a pleasure seeing Janki Zimmer. Thank you for this consult. Entered by: Denisse Shafer MD Jan 31, 2017 19:23
[2017-01-31] MEDS: INSULIN DETEMIR 100 UNITS/ML VIAL SQ SCH (21:00)
[2017-02-01] VITALS (10 sets, daily range): BP systolic 96–134; BP diastolic 48–79; PULSE 84–100; RESP 16–21; TEMP 97.2–98.6; O2SAT 90–99
[2017-02-01 02:14] LABS: PROTHROMBIN TIME - PATIENT 10.5 SEC (9.8-11.6)
[2017-02-01 03:52] LABS: IGA SERUM 364 mg/dL (81-463); TISSUE TRANSGLUTAMINASE AB IGG ND U/mL (())
[2017-02-01] MEDS ORDERED: INSULIN HUMAN REGULAR 1,000 UNITS/10 ML VIAL SQ PRN (05:15)
[2017-02-01] MEDS ORDERED: METOPROLOL TARTRATE 25 MG TAB PO PRN (05:15)
[2017-02-01] MEDS ORDERED: POVIDONE IODINE 5% (ANTISEPSIS KIT) 4 APPLICATIONS EACH NARE PRN (05:15)
[2017-02-01] MEDS ORDERED: SODIUM CHLORID 0.9% 500 ML IV PRN (05:15)
[2017-02-01] MEDS ORDERED: LACTATED RINGER'S 1000 ML IV PRN (05:15)
[2017-02-01] MEDS ORDERED: CHLORHEXIDINE GLUCONATE 2 % 1 PACK (2 CLOTHS) TOPICAL PRN (05:15)
[2017-02-01] MEDS: INSULIN ASPART SUPPLEMENTAL SCALE SQ SCH ×4 (05:47→21:44)
[2017-02-01] MEDS: DOCUSATE SODIUM 50 MG/SENNA 8.6 MG TAB PO SCH ×2 (09:00→21:47)
[2017-02-01] MEDS: CARVEDILOL 12.5 MG TAB PO SCH ×3 (09:00→21:47)
[2017-02-01] MEDS: INSULIN DETEMIR 100 UNITS/ML VIAL SQ SCH ×2 (09:00→21:45)
--- NOTE | 2017-02-01 09:39 | PD.ONC.PN ---
Subjective Subjective Remarks Afebrile overnight. Patient wants to eat and drink. Tired of being NPO. Has some residual abdominal pain, which she attributes to "my stomach being so stretched out from all that fluid." Objective Data Date Time Temp Pulse Resp B/P Pulse Ox O2 Delivery O2 Flow Rate FiO2 02/01/17 08:00 97.2 93 16 134/60 90 02/01/17 04:28 97.8 93 17 118/63 98 02/01/17 00:12 98.4 95 21 107/79 95 01/31/17 21:22 Nasal Cannula 6.00 01/31/17 21:20 98.0 102 20 118/59 94 01/31/17 20:00 97.3 96 20 122/71 96 01/31/17 16:00 98.4 99 20 123/77 95 01/31/17 12:00 96.6 94 20 121/73 95 01/31/17 09:42 92 Nasal Cannula 3.00 Result Diagram: 01/29/17 0620 Laboratory Results Laboratory Tests Test 01/31/17 02/01/17 13:35 01:39 CA 15-3 Antigen 23.1 U/ML Prothrombin Time 10.5 SEC Prothromb Time International 1.0 RATIO Ratio Administered Medications Medications (Trade) Dose Ordered Sig/Rigoberto Route PRN Reason Start Time Stop Time Status Last Admin Dose Admin Sodium Chloride (NS Flush) 2 ml BID IV FLUSH 01/26/17 21:00 01/31/17 21:57 Ondansetron HCl (Zofran Inj) 4 mg Q6H PRN IVP NAUSEA OR VOMITING 01/26/17 16:15 01/31/17 15:45 Alprazolam (Xanax) 0.5 mg Q8H PRN PO ANXIETY 01/26/17 16:15 01/27/17 10:22 Brimonidine Tartrate (Alphagan 0.2% Opth Soln) 1 drop BID EACH EYE 01/26/17 21:00 01/31/17 21:57 Glyburide (Diabeta) 5 mg DAILY PO 01/27/17 09:00 Hold 01/29/17 08:54 Insulin Human Isoph/Insulin Regular (NovoLIN 70/30 INJ) 40 units DAILY SQ 01/27/17 09:00 Hold 01/29/17 09:00 Timolol Maleate (Timoptic 0.5% Opth Soln) 1 drop BID EACH EYE 01/26/17 21:00 01/27/17 21:00 Senna/Docusate Sodium (Astrid-Colace) 1 tab BID PO 01/27/17 21:00 01/30/17 20:01 Magnesium Hydroxide (Milk Of Magntanya Liq) 30 ml Q12H PRN PO MILD - MODERATE CONSTIPATION 01/27/17 17:00 01/29/17 15:53 Sennosides (Senokot) 17.2 mg Q12H PRN PO MODERATE - SEVERE CONSTIPATION 01/27/17 17:00 01/27/17 18:55 Lactulose 30 ml 30 ml DAILY PRN PO SEVERE CONSITIPATION 01/27/17 17:00 01/27/17 18:55 Ceftriaxone Sodium/Sodium Chloride (Rocephin Inj/NS Inj) 100 ml @ 200 mls/hr Q24H IV 01/29/17 18:00 01/31/17 16:51 Enoxaparin Sodium (Lovenox Inj) 40 mg Q24H SQ 01/29/17 12:00 Hold 01/30/17 15:40 Insulin Detemir (Levemir Inj) 10 units Q12HR SQ 01/31/17 21:00 01/31/17 21:00 Objective Remarks GENERAL: Middle aged female, supine in bed, talking on the phone. SKIN: Warm and dry. HEAD: Normocephalic. EYES: No injection or drainage. NECK: Supple, trachea midline. CARDIOVASCULAR: Regular rate and rhythm RESPIRATORY: Breath sounds equal bilaterally. No accessory muscle use. GASTROINTESTINAL: Abdomen obese, mildly distended, non tender to palpation. EXTREMITIES: No cyanosis NEUROLOGICAL: No obvious focal deficit. Awake, alert, and oriented x3. Assessment/Plan Problem List: (1) Ascites Status: Acute Plan: --She noted increased abdominal girth for last two weeks. --When she came in, she had a paracentesis with removal 7.1 liters of cloudy yellowish fluid. --no protein or albumin analysis done. Cytology is still pending. Hepatitis panel was negative. --CA-125 is slightly elevated at 348 which is nonspecific. --Alpha-fetoprotein, CEA and CA19-9 were all normal. --CT ab/pelvis: no definite mass. --CT chest: no mass --ex lap planned, surgery following. Assessment 62y/o female with new onset ascites suspicious for malignancy. --history of cervical cancer treated with radiation and chemotherapy in 2003. --Diabetes mellitus. recurrent urinary tract infection. Hypertension --Nephropathy, neuropathy and retinopathy. Right eye blindness Plan 1. await ex. lap 2. await cytology Attending Statement The exam, history, and the medical decision-making described in the above note were completed with the assistance of the mid-level provider. I reviewed and agree with the findings presented. I attest that I had a [id number] encounter with the patient on the same day, and personally performed and documented my assessment and findings in the medical record. Abdominal pain stable. Fluid appear to have reaccumulated. CT chest no obvious mass/mets disease. Fluid cytology pending. Await exp lap. Problem Qualifiers (1) Ascites: Qualified Code: R18.8 - Other ascites Miriam Sanchez Feb 01, 2017 09:39 Zhen Zepeda MD Feb 01, 2017 11:28
[2017-02-01] MEDS: BRIMONIDINE TARTRATE 0.2% OPHT SOLN 5 ML BTL EACH EYE SCH ×2 (10:25→21:47)
[2017-02-01] MEDS: TIMOLOL MALEATE 0.5% OPHT SOLN 5 ML BTL EACH EYE SCH ×2 (10:25→21:47)
[2017-02-01] MEDS: SODIUM CHLORIDE 0.9% FLUSH 10 ML FLUSH IV FLUSH SCH ×2 (10:26→21:46)
--- NOTE | 2017-02-01 10:55 | HHI.GIFU ---
Subjective Remarks Resting in bed. States she has diffuse abdominal discomfort with intermittent nausea. + BM. Going to OR today at 1pm. Objective Vitals I&O Vital Signs Date Time Temp Pulse Resp B/P Pulse Ox O2 Delivery O2 Flow Rate FiO2 02/01/17 10:16 92 Nasal Cannula 3.00 02/01/17 08:00 97.2 93 16 134/60 90 02/01/17 04:28 97.8 93 17 118/63 98 02/01/17 00:12 98.4 95 21 107/79 95 01/31/17 21:22 Nasal Cannula 6.00 01/31/17 21:20 98.0 102 20 118/59 94 01/31/17 20:00 97.3 96 20 122/71 96 01/31/17 16:00 98.4 99 20 123/77 95 01/31/17 12:00 96.6 94 20 121/73 95 I/O 01/31/17 01/31/17 01/31/17 02/01/17 02/01/17 02/01/17 07:00 15:00 23:00 07:00 15:00 23:00 Intake Total 240 ml 900 ml 690 ml Balance 240 ml 900 ml 690 ml Intake Oral 240 ml 900 ml 690 ml # Voids 2 5 1 1 # Bowel Movements 0 Laboratory Laboratory Tests Test 01/31/17 02/01/17 13:35 01:39 CA 15-3 Antigen 23.1 Prothrombin Time 10.5 Prothromb Time International 1.0 Ratio Date/Time Procedure Status Source Growth 01/27/17 12:20 Gram Stain - Final Complete Fluid Peritoneal Fluid 01/27/17 12:20 Body Fluid Culture - Final Complete Fluid Peritoneal Fluid NO GROWTH IN 72 HRS.--AEROBICALLY OR ... Imaging Last Impressions Chest CT 01/31/17 0000 Signed Impressions: Service Date/Time: January 10:06 - CONCLUSION: 1. No discrete mass lesion identified. 2. Minimal bibasilar effusions with atelectatic changes in the lung bases. 3. No significant adenopathy. Juan Pleitez MD Abdomen X-Ray 01/28/17 0600 Signed Impressions: Service Date/Time: Saturday, January 28, 2017 15:13 - CONCLUSION: No definite bowel dilatation or free air is seen. Sriram Sunshine MD Cyst Biopsy Asp-Paracentesis US 01/27/17 0000 Signed Impressions: Service Date/Time: Friday, January 27, 2017 11:00 - CONCLUSION: Uncomplicated ultrasound guided paracentesis. Juan Pleitez MD Abdomen/Pelvis CT 01/26/17 1349 Signed Impressions: Service Date/Time: Thursday, January 26, 2017 14:38 - CONCLUSION: 1. Moderate to large amount of ascites without definitive etiology identified on CT. No definitive mesenteric mass or hepatic volume loss. Evaluation of the mesentery and liver are however limited due to lack of IV contrast. 2. Periumbilical anterior bowel wall hernia containing fat and ascites fluid. Myke Kendall MD ADDENDUM: Reexamination of the pelvic CT exam does demonstrate a small uterus which appears unremarkable by CT. The uterus was originally reported as surgically absent. Myke Kendall MD Chest X-Ray 01/26/17 1155 Signed Impressions: Service Date/Time: Thursday, January 26, 2017 12:13 - CONCLUSION: Underinflated examination with atelectasis at the bases. No acute finding is identified. Sriram Paul MD Renal Ultrasound 01/26/17 0000 Signed Impressions: Service Date/Time: Thursday, January 26, 2017 17:59 - CONCLUSION: Ultrasound appearance of the kidneys and urinary bladder within normal limits. Sriram Kaufman MD Physical Exam HEENT: Normocephalic; atraumatic; no jaundice. CHEST: Resp shallow/even, mildly labored, but flat in bed. Diminished breath sounds CARDIAC: RRR. ABDOMEN: Soft, distended, umbilical hernia, tender; no hepatosplenomegaly; bowel sounds are present in all four quadrants. EXTREMITIES: No clubbing, cyanosis, +2-3 edema. SKIN: Normal; no rash; no jaundice. GASATERIA ATTENDANT: No focal deficits; alert and oriented times three. Assessment and Plan Plan ASSESSMENT: - New onset ascites, suspicious for malignancy. S/P US guided paracentesis ()---> 7,100cc cloudy yellow fluid was removed. No albumin or protein done on peritoneal fluid. Cytology pending. Abdomen/Pelvis CT (01/26)-----> 1. Moderate to large amount of ascites without definitive etiology identified on CT. No definitive mesenteric mass or hepatic volume loss. Evaluation of the mesentery and liver are however limited due to lack of IV contrast. 2. Periumbilical anterior bowel wall hernia containing fat and ascites fluid. ADDENDUM: Reexamination of the pelvic CT exam does demonstrate a small uterus which appears unremarkable by CT. The uterus was originally reported as surgically absent. Chest CT (01/31/17)----> 1. No discrete mass lesion identified. 2. Minimal bibasilar effusions with atelectatic changes in the lung bases. 3. No significant adenopathy. She has a history of cervical cancer. Hepatitis negative. HUBER negative, Celiac pending. Ferritin 230, Iron saturation 15.6. Alpha 1 antitrypsin 290, Ceruloplasmin pending, AFP 1.2 CEA 1.1, Ca 15-3 23.1, Ca 19-9 21.2, Ca 125 348.8. Oncology is following. has been consulted for laparoscopy with biopsy. If this is negative, the plan would be for EGD/Colonoscopy. However, patient is refusing at this time. - Constipation. Abdomen X-Ray (01/28/17)----> No definite bowel dilatation or free air is seen. + BM. - Nausea, vomiting. Improving. - Abdominal pain. Intermittent diffuse abdominal discomfort. - DM, HTN, nephropathy, neuropathy, recurrent UTI per primary - Hx cervical cancer, s/p radiation and chemotherapy in 2003. Recommendations: - Plan is for laparoscopy with peritoneal biopsy today at 1pm - NPO - Await cytology - Supportive care - Oncology following - Further recommendations to follow based on results of above - Consider EGD/Colonoscopy if cytology and laparoscopy negative, patient refusing at this time - Pt seen and examined by Dr. Pena and myself and this note is written on his behalf await cytology report consider egd/colonoscopy if cytology and laparoscopy negative, patient is reluctant to do so Destinee Heard Feb 01, 2017 10:55
[2017-02-01] MEDS ORDERED: NEOSTIGMINE 3 MG/3 ML SYR IV ONE (12:00)
[2017-02-01] MEDS ORDERED: PROPOFOL 200 MG/20 ML AMP IV ONE (12:00)
[2017-02-01] MEDS ORDERED: LACTATED RINGER'S 1000 ML INJ 1,000 ML IV ONE (12:00)
--- NOTE | 2017-02-01 12:26 | HHI.PR ---
Subjective Remarks Went for lap surgery patient was seen after surgery. Says she wants ice chips. Say she doesn't have any abdominal pain at this time. No n/v/d/c. No fever or chills. Objective Vitals Vital Signs Date Time Temp Pulse Resp B/P Pulse Ox O2 Delivery O2 Flow Rate FiO2 02/01/17 10:16 92 Nasal Cannula 3.00 02/01/17 09:55 92 Nasal Cannula 4.00 02/01/17 08:00 97.2 93 16 134/60 90 02/01/17 04:28 97.8 93 17 118/63 98 02/01/17 00:12 98.4 95 21 107/79 95 01/31/17 21:22 Nasal Cannula 6.00 01/31/17 21:20 98.0 102 20 118/59 94 01/31/17 20:00 97.3 96 20 122/71 96 01/31/17 16:00 98.4 99 20 123/77 95 I/O 01/31/17 01/31/17 01/31/17 02/01/17 02/01/17 02/01/17 07:00 15:00 23:00 07:00 15:00 23:00 Intake Total 240 ml 900 ml 690 ml Balance 240 ml 900 ml 690 ml Intake Oral 240 ml 900 ml 690 ml # Voids 2 5 1 1 # Bowel Movements 0 Result Diagram: 01/29/17 0620 Imaging Last Impressions Chest CT 01/31/17 0000 Signed Impressions: Service Date/Time: January 10:06 - CONCLUSION: 1. No discrete mass lesion identified. 2. Minimal bibasilar effusions with atelectatic changes in the lung bases. 3. No significant adenopathy. Juan Pleitez MD Abdomen X-Ray 01/28/17 0600 Signed Impressions: Service Date/Time: Saturday, January 28, 2017 15:13 - CONCLUSION: No definite bowel dilatation or free air is seen. Sriram Sunshine MD Cyst Biopsy Asp-Paracentesis US 01/27/17 0000 Signed Impressions: Service Date/Time: Friday, January 27, 2017 11:00 - CONCLUSION: Uncomplicated ultrasound guided paracentesis. Juan Pleitez MD Abdomen/Pelvis CT 01/26/17 1349 Signed Impressions: Service Date/Time: Thursday, January 26, 2017 14:38 - CONCLUSION: 1. Moderate to large amount of ascites without definitive etiology identified on CT. No definitive mesenteric mass or hepatic volume loss. Evaluation of the mesentery and liver are however limited due to lack of IV contrast. 2. Periumbilical anterior bowel wall hernia containing fat and ascites fluid. Myke Kendall MD ADDENDUM: Reexamination of the pelvic CT exam does demonstrate a small uterus which appears unremarkable by CT. The uterus was originally reported as surgically absent. Myke Kendall MD Chest X-Ray 01/26/17 1155 Signed Impressions: Service Date/Time: Thursday, January 26, 2017 12:13 - CONCLUSION: Underinflated examination with atelectasis at the bases. No acute finding is identified. Sriram Paul MD Renal Ultrasound 01/26/17 0000 Signed Impressions: Service Date/Time: Thursday, January 26, 2017 17:59 - CONCLUSION: Ultrasound appearance of the kidneys and urinary bladder within normal limits. Sriram Kaufman MD Objective Remarks GENERAL: This is a pleasant morbidly obese F, well-nourished, well-developed patient, nausea. Poor vision on right eye. CARDIOVASCULAR: Regular rate and rhythm without murmurs, gallops, or rubs. RESPIRATORY: Clear to auscultation. Breath sounds equal bilaterally. No wheezes , rales, or rhonchi. GASTROINTESTINAL: Abdomen soft, obese, non-tender, not distended. Hypo-active bowel sounds. Umbilical hernia. s/p lap surgery MUSCULOSKELETAL: Right hand underdeveloped, other 3 Extremities without clubbing , cyanosis, there is trace LE edema. NEURO: Legally blind. Right sclerotic eye. Alert & Oriented x4 to person, place, time, situation. Moves all ext x4 Procedures paracentesis 7.1 Liters A/P Problem List: (1) Ascites ICD Code: R18.8 Status: Acute (2) Hypoxia ICD Code: R09.02 Status: Acute (3) Urinary tract infection ICD Code: N39.0 Status: Acute (4) ARF (acute renal failure) ICD Code: N17.9 Status: Acute (5) DM2 (diabetes mellitus, type 2) ICD Code: E11.9 Status: Acute (6) HTN (hypertension) ICD Code: I10 Status: Acute (7) Umbilical hernia ICD Code: K42.9 Status: Acute (8) Constipation ICD Code: K59.00 Status: Acute Assessment and Plan Ascites, Acute Etiology unclear at this time, s/p diagnostic and therapeutic paracentesis 7.1 liters patient with a history of cholecystectomy and cervical CA (xrt and chemo) Patient with carcinomatosis s/p Diagnostic laparoscopy, paracentesis, biopsy of peritoneum and omentum on by Dr Calvillo appreciate recommendations Recent bowel change for 2 weeks with constipation KUB unremarkable, continue antiemetics for nausea and vomiting 01/31 GI follow-up appreciated Gen. surgery consulted. The patient s/p laparoscopy as above. Pathology pending. Oncology consulted - appreciate recommendations GENERAL INTERN oncology consulted. Awaiting recommendations. Hypoxia Acute Likely hypoventilation syndrome from obesity and ascites. Opinion supplemental oxygen to keep oxygen saturation more than 92%. Chest x-ray obtained on shows underinflated examination with atelectasis at the bases. Will order incentive spirometry. Urinary tract infection Acute On IV Rocephin. Continue therapy for a total of 7 days. ARF (acute renal failure) Acute Patient presented with a creatinine of 1.7, down to 0.96. Resolved after IV fluid administration. DINA inhibitor was held. DM2 (diabetes mellitus, type 2) Acute continue patient's home medications Diabetic diet Hemoglobin A1c greater than 9 Blood sugars are uncontrolled and very elevated - Will start the patient on insulin Levemir 10 mg SQ BID HTN (hypertension) Acute BP stable. DINA inhibitor was held due to ALIREZA. Patient was started on Coreg as per Dr. Hadley, however patient refuses medication. I will start on DINA inhibitor since ALIREZA has resolved. Umbilical hernia Acute General surgery following Constipation Acute s/p enema, bowel regimen refuses endoscopy KUB unremarkable clear liquids and antiemetics Discussed with the patient, nurse. Discharge plan: Pending improvement and clearance by consultants. Problem Qualifiers (1) Ascites: Qualified Code: R18.8 - Other ascites (2) Urinary tract infection: Qualified Code: N30.00 - Acute cystitis without hematuria Faviola Urias MD Feb 01, 2017 12:26
[2017-02-01] MEDS ORDERED: fentaNYL CITRATE 250 MCG/5 ML AMP ONE (12:42)
[2017-02-01] MEDS ORDERED: BUPIVACAINE/EPINEPHRINE 0.5% PF 30 ML VIAL ONE (12:50)
[2017-02-01] MEDS ORDERED: cefTRIAXone 2,000 MG VIAL ONE (13:07)
--- NOTE | 2017-02-01 15:20 | HHI.PR ---
cc: Vinod Calvillo MD Immediate Post Op Note Procedure Date: Feb 01, 2017 Pre Op Diagnosis: Unexplained ascites Post Op Diagnosis: Carcinomatosis Surgeon: Vinod Calvillo Vp Marketing(s): Mark James CFA Procedure: Diagnostic laparoscopy, paracentesis, biopsy peritoneum and omentum Complications: None Specimen(s) removed: Omental and peritoneal tissue to pathology Estimated blood loss: 10 ml Anesthesia: General Drains: None IVF (900 ml) Patient to: PACU Patient Condition: Good Date/Time of Procedure: SEE SURGICAL CARE RECORD Vinod Calvillo MD Feb 01, 2017 15:20
[2017-02-01] MEDS ORDERED: MORPHINE SULFATE 4 MG/ML INJ IV PUSH PRN (15:30)
[2017-02-01] MEDS ORDERED: *RESP: ALBUTEROL 2.5 MG/3 ML NEB (PRN) PERIprocedural Use ONLY NEB ONE (16:06)
[2017-02-01] MEDS ORDERED: *ONDANSETRON 4 MG VIAL PERIprocedural Use ONLY ONE (16:28)
[2017-02-01] MEDS ORDERED: DO NOT ADM ANY ANTICOAGULANT DRUGS PRN (16:45)
[2017-02-01] MEDS: cefTRIAXone INJ 1,000 MG in SODIUM CHLORIDE 0.9% INJ 100 ML IV SCH (17:19)
[2017-02-01] MEDS: NYSTATIN 100,000 U/GM PWD 15 GM BTL TOPICAL SCH (21:00)
[2017-02-01] MEDS: ALPRAZolam 0.5 MG TAB PO PRN (22:23)
[2017-02-02] VITALS (7 sets, daily range): BP systolic 104–148; BP diastolic 56–88; PULSE 89–97; RESP 17–20; TEMP 96.3–98.6; O2SAT 91–97
[2017-02-02] MEDS: INSULIN ASPART SUPPLEMENTAL SCALE SQ SCH ×4 (05:22→20:11)
[2017-02-02] MEDS: CARVEDILOL 12.5 MG TAB PO SCH ×2 (09:00→20:09)
[2017-02-02] MEDS: NYSTATIN 100,000 U/GM PWD 15 GM BTL TOPICAL SCH ×2 (09:00→20:10)
[2017-02-02] MEDS: BRIMONIDINE TARTRATE 0.2% OPHT SOLN 5 ML BTL EACH EYE SCH ×2 (10:04→20:10)
[2017-02-02] MEDS: DOCUSATE SODIUM 50 MG/SENNA 8.6 MG TAB PO SCH ×3 (10:04→20:09)
[2017-02-02] MEDS: TIMOLOL MALEATE 0.5% OPHT SOLN 5 ML BTL EACH EYE SCH ×2 (10:05→20:10)
[2017-02-02] MEDS: SODIUM CHLORIDE 0.9% FLUSH 10 ML FLUSH IV FLUSH SCH ×3 (10:05→20:09)
[2017-02-02] MEDS: INSULIN DETEMIR 100 UNITS/ML VIAL SQ SCH ×2 (10:15→20:11)
--- NOTE | 2017-02-02 10:59 | HHI.PR ---
Subjective Remarks Complaints of nausea. Abd pain is controlled by meds. Passing gas, did not have a BM. No n/v/d/c. Surgical site with discharge serosanguinous, reinforsed with bandages, soaked. Objective Vitals Vital Signs Date Time Temp Pulse Resp B/P Pulse Ox O2 Delivery O2 Flow Rate FiO2 02/02/17 08:00 97.8 96 19 104/56 93 02/02/17 03:15 96.3 97 20 119/59 93 02/01/17 22:24 98.6 99 18 96/48 92 02/01/17 21:30 92 Nasal Cannula 2.00 02/01/17 20:49 96 02/01/17 20:47 16 02/01/17 20:46 97.9 100 113/55 99 02/01/17 20:40 93 Nasal Cannula 3.00 02/01/17 16:29 98.4 95 15 136/59 94 Nasal Cannula 3 02/01/17 16:15 94 13 144/66 93 Nasal Cannula 3 02/01/17 16:00 96 15 151/84 92 Nasal Cannula 3 02/01/17 15:45 96 16 162/72 94 Simple Mask 10 02/01/17 15:30 96 16 180/81 94 Simple Mask 10 02/01/17 15:24 98.8 96 15 169/72 87 Nasal Cannula 2 02/01/17 12:00 97.7 84 16 124/58 94 I/O 02/01/17 02/01/17 02/01/17 02/02/17 02/02/17 02/02/17 07:00 15:00 23:00 07:00 15:00 23:00 Intake Total 0 ml 910 ml 360 ml Output Total 10 ml Balance 0 ml 900 ml 360 ml Intake Oral 0 ml 10 ml 360 ml Other 900 ml Estimated Blood Loss 10 ml # Voids 1 3 3 # Bowel Movements 0 Result Diagram: 01/29/17 0620 Imaging Last Impressions Chest CT 01/31/17 0000 Signed Impressions: Service Date/Time: January 10:06 - CONCLUSION: 1. No discrete mass lesion identified. 2. Minimal bibasilar effusions with atelectatic changes in the lung bases. 3. No significant adenopathy. Juan Pleitez MD Abdomen X-Ray 01/28/17 0600 Signed Impressions: Service Date/Time: Saturday, January 28, 2017 15:13 - CONCLUSION: No definite bowel dilatation or free air is seen. Sriram Sunshine MD Cyst Biopsy Asp-Paracentesis US 01/27/17 0000 Signed Impressions: Service Date/Time: Friday, January 27, 2017 11:00 - CONCLUSION: Uncomplicated ultrasound guided paracentesis. Juan Pleitez MD Abdomen/Pelvis CT 01/26/17 1349 Signed Impressions: Service Date/Time: Thursday, January 26, 2017 14:38 - CONCLUSION: 1. Moderate to large amount of ascites without definitive etiology identified on CT. No definitive mesenteric mass or hepatic volume loss. Evaluation of the mesentery and liver are however limited due to lack of IV contrast. 2. Periumbilical anterior bowel wall hernia containing fat and ascites fluid. Myke Kendall MD ADDENDUM: Reexamination of the pelvic CT exam does demonstrate a small uterus which appears unremarkable by CT. The uterus was originally reported as surgically absent. Myke Kendall MD Chest X-Ray 01/26/17 1155 Signed Impressions: Service Date/Time: Thursday, January 26, 2017 12:13 - CONCLUSION: Underinflated examination with atelectasis at the bases. No acute finding is identified. Sriram Paul MD Renal Ultrasound 01/26/17 0000 Signed Impressions: Service Date/Time: Thursday, January 26, 2017 17:59 - CONCLUSION: Ultrasound appearance of the kidneys and urinary bladder within normal limits. Sriram Kaufman MD Objective Remarks GENERAL: This is a pleasant morbidly obese F, well-nourished, well-developed patient, nausea. Poor vision on right eye. CARDIOVASCULAR: Regular rate and rhythm without murmurs, gallops, or rubs. RESPIRATORY: Clear to auscultation. Breath sounds equal bilaterally. No wheezes , rales, or rhonchi. GASTROINTESTINAL: Abdomen soft, obese, non-tender, not distended. Hypo-active bowel sounds. Umbilical hernia. s/p lap surgery with drainage from lower lap site, reinforced with bandages, soaked serosanguineous fluid MUSCULOSKELETAL: Right hand underdeveloped, other 3 Extremities without clubbing , cyanosis, there is trace LE edema. NEURO: Legally blind. Right sclerotic eye. Alert & Oriented x4 to person, place, time, situation. Moves all ext x4 Procedures paracentesis 7.1 Liters A/P Problem List: (1) Ascites ICD Code: R18.8 Status: Acute (2) Hypoxia ICD Code: R09.02 Status: Acute (3) Urinary tract infection ICD Code: N39.0 Status: Acute (4) ARF (acute renal failure) ICD Code: N17.9 Status: Acute (5) DM2 (diabetes mellitus, type 2) ICD Code: E11.9 Status: Acute (6) HTN (hypertension) ICD Code: I10 Status: Acute (7) Umbilical hernia ICD Code: K42.9 Status: Acute (8) Constipation ICD Code: K59.00 Status: Acute Assessment and Plan Ascites, Acute 2/2 carcinomatosis s/p diagnostic and therapeutic paracentesis 7.1 liters patient with a history of cholecystectomy and cervical CA (xrt and chemo) Patient with carcinomatosis , consult Dr Fisher. s/p Diagnostic laparoscopy, paracentesis, biopsy of peritoneum and omentum on by Dr Calvillo appreciate recommendations Recent bowel change for 2 weeks with constipation KUB unremarkable, continue antiemetics for nausea and vomiting 01/31 GI follow-up appreciated Gen. surgery consulted. The patient s/p laparoscopy as above. Pathology pending. Oncology consulted - appreciate recommendations [employer]OR [employer]ET[employer] oncology consulted. Awaiting recommendations. Hypoxia Acute Likely hypoventilation syndrome from obesity and ascites. Opinion supplemental oxygen to keep oxygen saturation more than 92%. Chest x-ray obtained on shows underinflated examination with atelectasis at the bases. Will order incentive spirometry. Urinary tract infection Acute On IV Rocephin. Continue therapy for a total of 7 days. ARF (acute renal failure) Acute Patient presented with a creatinine of 1.7, down to 0.96. Resolved after IV fluid administration. DNIA inhibitor was held. DM2 (diabetes mellitus, type 2) Acute continue patient's home medications Diabetic diet Hemoglobin A1c greater than 9 Blood sugars are uncontrolled and very elevated - Will start the patient on insulin Levemir 10 mg SQ BID HTN (hypertension) Acute BP stable. DINA inhibitor was held due to ALIREZA. Patient was started on Coreg as per Dr. Hadley, however patient refuses medication. I will start on DINA inhibitor since ALIREZA has resolved. Umbilical hernia Acute General surgery following Constipation Acute s/p enema, bowel regimen refuses endoscopy KUB unremarkable clear liquids and antiemetics Discussed with the patient, nurse. Discharge plan: Pending improvement and clearance by consultants. Problem Qualifiers (1) Ascites: Qualified Code: R18.8 - Other ascites (2) Urinary tract infection: Qualified Code: N30.00 - Acute cystitis without hematuria Faviola Urias MD Feb 02, 2017 10:59
[2017-02-02] MEDS ORDERED: BISACODYL 10 MG SUPP RECTAL PRN (11:00)
[2017-02-02] MEDS ORDERED: MAGNESIUM HYDROXIDE SUSP 30 ML CUP PO PRN (11:00)
[2017-02-02] MEDS ORDERED: SODIUM CHLORIDE 0.9% FLUSH 10 ML FLUSH IV FLUSH PRN (11:00)
--- NOTE | 2017-02-02 11:47 | HHI.PR ---
Subjective Subjective Notes threw up this am but his hungry. leaking fluid from her abdomen Objective Vitals/I&O Vital Signs Date Time Temp Pulse Resp B/P Pulse Ox O2 Delivery O2 Flow Rate FiO2 02/02/17 08:00 97.8 96 19 104/56 93 02/01/17 21:30 Nasal Cannula 2.00 01/31/17 09:[address] abdomen/pelvis- moderate to large amount of ascites without definitive etiology. The umbilical anterior bowel wall hernia containing fat and ascites fluid. Cardiovascular: Regular Lungs: Clear Abdomen: Post-op tenderness Narrative Exam obese abdomen with clear fluid leaking out from wound Wound Wound : Appearance: Clean & Dry Drainage: Clear Dressing: Dry A/P Assessment and Plan s/p diag lap, carcinomatosis, malignant ascites post op ileus, diet as tolerated for now, npo is emesis continues supportive care will consult dr campbell metcalf asst. Jay Burnette MD Feb 02, 2017 11:47
[2017-02-02] MEDS: SODIUM CHLOR 0.9% 1000 ML INJ 1,000 ML IV SCH ×2 (12:11→20:09)
--- NOTE | 2017-02-02 16:29 | HHI.GIFU ---
Subjective Remarks Resting in bed. Taking liquids. Did have one episode of n/v earlier today, improved now and taking liquids. C/O sore throat. Diffuse abdominal discomfort , more so in left lower quadrant. Passing flatus. (Destinee Heard) Objective Vitals I&O Vital Signs Date Time Temp Pulse Resp B/P Pulse Ox O2 Delivery O2 Flow Rate FiO2 02/02/17 16:00 96.5 95 19 146/61 92 02/02/17 12:00 97.5 89 18 105/56 92 02/02/17 08:00 97.8 96 19 104/56 93 02/02/17 03:15 96.3 97 20 119/59 93 02/01/17 22:24 98.6 99 18 96/48 92 02/01/17 21:30 92 Nasal Cannula 2.00 02/01/17 20:49 96 02/01/17 20:47 16 02/01/17 20:46 97.9 100 113/55 99 02/01/17 20:40 93 Nasal Cannula 3.00 02/01/17 16:29 98.4 95 15 136/59 94 Nasal Cannula 3 I/O 02/01/17 02/01/17 02/01/17 02/02/17 02/02/17 02/02/17 07:00 15:00 23:00 07:00 15:00 23:00 Intake Total 0 ml 910 ml 360 ml 600 ml Output Total 10 ml Balance 0 ml 900 ml 360 ml 600 ml Intake Oral 0 ml 10 ml 360 ml 600 ml Other 900 ml Estimated Blood Loss 10 ml # Voids 1 3 3 2 # Bowel Movements 0 0 Imaging Last Impressions Chest CT 01/31/17 0000 Signed Impressions: Service Date/Time: January 10:06 - CONCLUSION: 1. No discrete mass lesion identified. 2. Minimal bibasilar effusions with atelectatic changes in the lung bases. 3. No significant adenopathy. Juan Pleitez MD Abdomen X-Ray 01/28/17 0600 Signed Impressions: Service Date/Time: Saturday, January 28, 2017 15:13 - CONCLUSION: No definite bowel dilatation or free air is seen. Sriram Sunshine MD Cyst Biopsy Asp-Paracentesis US 01/27/17 0000 Signed Impressions: Service Date/Time: Friday, January 27, 2017 11:00 - CONCLUSION: Uncomplicated ultrasound guided paracentesis. Juan Pleitez MD Abdomen/Pelvis CT 01/26/17 1349 Signed Impressions: Service Date/Time: Thursday, January 26, 2017 14:38 - CONCLUSION: 1. Moderate to large amount of ascites without definitive etiology identified on CT. No definitive mesenteric mass or hepatic volume loss. Evaluation of the mesentery and liver are however limited due to lack of IV contrast. 2. Periumbilical anterior bowel wall hernia containing fat and ascites fluid. Myke Kendall MD ADDENDUM: Reexamination of the pelvic CT exam does demonstrate a small uterus which appears unremarkable by CT. The uterus was originally reported as surgically absent. Myke Kendall MD Chest X-Ray 01/26/17 1155 Signed Impressions: Service Date/Time: Thursday, January 26, 2017 12:13 - CONCLUSION: Underinflated examination with atelectasis at the bases. No acute finding is identified. Sriram Paul MD Renal Ultrasound 01/26/17 0000 Signed Impressions: Service Date/Time: Thursday, January 26, 2017 17:59 - CONCLUSION: Ultrasound appearance of the kidneys and urinary bladder within normal limits. Sriram Kaufman MD Physical Exam HEENT: Normocephalic; atraumatic; no jaundice. CHEST: Resp shallow/even, Diminished breath sounds CARDIAC: RRR. ABDOMEN: Soft, distended, umbilical hernia, tender; no hepatosplenomegaly; bowel sounds are present in all four quadrants. EXTREMITIES: right upper extremity/hand deformity, cyanosis, +2-3 edema. SKIN: Normal; no rash; no jaundice. COLLEGE PRESIDENT: No focal deficits; alert and oriented times three. (Destinee Heard) Assessment and Plan Plan ASSESSMENT: - New onset ascites, suspicious for malignancy. S/P US guided paracentesis ()---> 7,100cc cloudy yellow fluid was removed. No albumin or protein done on peritoneal fluid. Cytology pending. Abdomen/Pelvis CT (01/26)-----> 1. Moderate to large amount of ascites without definitive etiology identified on CT. No definitive mesenteric mass or hepatic volume loss. Evaluation of the mesentery and liver are however limited due to lack of IV contrast. 2. Periumbilical anterior bowel wall hernia containing fat and ascites fluid. ADDENDUM: Reexamination of the pelvic CT exam does demonstrate a small uterus which appears unremarkable by CT. The uterus was originally reported as surgically absent. Chest CT (01/31/17)----> 1. No discrete mass lesion identified. 2. Minimal bibasilar effusions with atelectatic changes in the lung bases. 3. No significant adenopathy. She has a history of cervical cancer. Hepatitis negative. HUBER negative, Celiac pending. Ferritin 230, Iron saturation 15.6. Alpha 1 antitrypsin 290, Ceruloplasmin pending, AFP 1.2, CEA 1.1, Ca 15-3 23.1, Ca 19-9 21.2, Ca 125 348.8. S/P Diagnostic laparoscopy, paracentesis, biopsy peritoneum and omentum---> carcinomatosis. Pathology pending. Oncology is following. Will consider EGD/Colonoscopy if pathology negative and patient agreeable. 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 Abdomen X-Ray (01/28/17)----> No definite bowel dilatation or free air is seen. + BM 01/31. - Nausea, vomiting. Had one episode of nausea/vomiting earlier today. Now tolerating liquids. Improving. - Abdominal pain. Intermittent diffuse abdominal discomfort. Pain management per attending. - DM, HTN, nephropathy, neuropathy, recurrent UTI per primary - Hx cervical cancer, s/p radiation and chemotherapy in 2003. 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 Matta and myself and this note is written on his behalf await cytology report consider egd/colonoscopy if cytology and laparoscopy negative, patient is reluctant to do so (Destinee Heard) Plan Patient was seen and examined, agree with above note and plan (Layo Matta MD) Destinee Heard Feb 02, 2017 16:29 Layo Matta MD Feb 02, 2017 17:47
[2017-02-02] MEDS ORDERED: PHENOL 1.4% SOLN 180 ML BTL OROPHARYNG PRN (16:30)
[2017-02-02] MEDS: ONDANSETRON HCL 4 MG/2 ML VIAL IVP PRN (17:21)
[2017-02-02] MEDS: cefTRIAXone INJ 1,000 MG in SODIUM CHLORIDE 0.9% INJ 100 ML IV SCH (17:22)
[2017-02-03] VITALS (7 sets, daily range): BP systolic 102–131; BP diastolic 53–65; PULSE 83–95; RESP 18–20; TEMP 96.9–97.4; O2SAT 92–95
[2017-02-03 03:52] LABS: ENDOMYSIAL AB TITER ND (<1:5); TISSUE TRANSGLUTAMINASE AB LESS THAN 1 U/mL (())
[2017-02-03] MEDS: SODIUM CHLOR 0.9% 1000 ML INJ 1,000 ML IV SCH ×3 (05:17→19:40)
[2017-02-03] MEDS: INSULIN ASPART SUPPLEMENTAL SCALE SQ SCH ×4 (05:17→19:42)
[2017-02-03] MEDS: NYSTATIN 100,000 U/GM PWD 15 GM BTL TOPICAL SCH ×2 (09:00→19:40)
[2017-02-03] MEDS: DOCUSATE SODIUM 50 MG/SENNA 8.6 MG TAB PO SCH ×4 (09:00→19:39)
[2017-02-03] MEDS: SODIUM CHLORIDE 0.9% FLUSH 10 ML FLUSH IV FLUSH SCH ×4 (09:00→19:39)
[2017-02-03] MEDS: CARVEDILOL 12.5 MG TAB PO SCH ×2 (09:00→19:39)
[2017-02-03] MEDS: ONDANSETRON HCL 4 MG/2 ML VIAL IVP PRN (09:53)
[2017-02-03] MEDS: INSULIN DETEMIR 100 UNITS/ML VIAL SQ SCH ×2 (09:56→19:43)
[2017-02-03] MEDS: ENOXAPARIN SODIUM 40 MG/0.4 ML SYRINGE SQ SCH (11:59)
[2017-02-03] MEDS: TIMOLOL MALEATE 0.5% OPHT SOLN 5 ML BTL EACH EYE SCH ×2 (12:01→19:39)
[2017-02-03] MEDS: BRIMONIDINE TARTRATE 0.2% OPHT SOLN 5 ML BTL EACH EYE SCH ×2 (12:01→19:38)
--- NOTE | 2017-02-03 12:32 | HHI.PR ---
Subjective Remarks In bed, doesn't appear in distress. Says she was able to eat breakfast. States that Zofran has helped with nausea. Abdominal pain is well controlled on current medications. Passing gas but has not had a BM. Denies nausea, vomiting, constipation, or diarrhea. Surgical site draining ample amounts of serosanguineous discharge. Objective Vitals Vital Signs Date Time Temp Pulse Resp B/P Pulse Ox O2 Delivery O2 Flow Rate FiO2 02/03/17 12:00 97.4 95 19 121/53 93 02/03/17 11:21 95 Nasal Cannula 3.00 02/03/17 08:25 3.00 02/03/17 08:00 97.4 92 18 126/65 92 02/03/17 00:00 96.9 95 20 131/65 94 02/02/17 21:12 91 Nasal Cannula 3.00 02/02/17 20:42 Nasal Cannula 2.00 02/02/17 20:12 98.6 90 17 148/88 97 02/02/17 16:00 96.5 95 19 146/61 92 02/02/17 12:42 91 Nasal Cannula 3.00 I/O 02/02/17 02/02/17 02/02/17 02/03/17 02/03/17 02/03/17 07:00 15:00 23:00 07:00 15:00 23:00 Intake Total 360 ml 600 ml 970 ml 985 ml Output Total 800 ml 450 ml Balance 360 ml 600 ml 170 ml 535 ml Intake Oral 360 ml 600 ml 360 ml 360 ml IV Total 610 ml 625 ml Drainage Total 800 ml 450 ml # Voids 3 2 1 1 # Bowel Movements 0 Imaging Last Impressions Chest CT 01/31/17 0000 Signed Impressions: Service Date/Time: January 10:06 - CONCLUSION: 1. No discrete mass lesion identified. 2. Minimal bibasilar effusions with atelectatic changes in the lung bases. 3. No significant adenopathy. Juan Pleitez MD Abdomen X-Ray 01/28/17 0600 Signed Impressions: Service Date/Time: Saturday, January 28, 2017 15:13 - CONCLUSION: No definite bowel dilatation or free air is seen. Sriram Sunshine MD Cyst Biopsy Asp-Paracentesis US 01/27/17 0000 Signed Impressions: Service Date/Time: Friday, January 27, 2017 11:00 - CONCLUSION: Uncomplicated ultrasound guided paracentesis. Juan Pleitez MD Abdomen/Pelvis CT 01/26/17 1349 Signed Impressions: Service Date/Time: Thursday, January 26, 2017 14:38 - CONCLUSION: 1. Moderate to large amount of ascites without definitive etiology identified on CT. No definitive mesenteric mass or hepatic volume loss. Evaluation of the mesentery and liver are however limited due to lack of IV contrast. 2. Periumbilical anterior bowel wall hernia containing fat and ascites fluid. Myke Kendall MD ADDENDUM: Reexamination of the pelvic CT exam does demonstrate a small uterus which appears unremarkable by CT. The uterus was originally reported as surgically absent. Myke Kendall MD Chest X-Ray 01/26/17 1155 Signed Impressions: Service Date/Time: Thursday, January 26, 2017 12:13 - CONCLUSION: Underinflated examination with atelectasis at the bases. No acute finding is identified. Sriram Paul MD Renal Ultrasound 01/26/17 0000 Signed Impressions: Service Date/Time: Thursday, January 26, 2017 17:59 - CONCLUSION: Ultrasound appearance of the kidneys and urinary bladder within normal limits. Sriram Kaufman MD Objective Remarks GENERAL: This is a pleasant morbidly obese F, well-nourished, well-developed patient, nausea. Poor vision on right eye. CARDIOVASCULAR: Regular rate and rhythm without murmurs, gallops, or rubs. RESPIRATORY: Decreased breath sounds bibasiolar. No wheezes, rales, or rhonchi. GASTROINTESTINAL: Abdomen soft, obese, non-tender, not distended. Hypo-active bowel sounds. Umbilical hernia. s/p lap surgery with drainage from lower lap site stoma applied with drainage to gravity into a howe. MUSCULOSKELETAL: Right hand underdeveloped, other 3 Extremities without clubbing , cyanosis, there is trace LE edema. NEURO: Legally blind. Right sclerotic eye. Alert & Oriented x4 to person, place, time, situation. Moves all ext x4 Procedures paracentesis 7.1 Liters A/P Problem List: (1) Ascites ICD Code: R18.8 Status: Acute (2) Hypoxia ICD Code: R09.02 Status: Acute (3) Urinary tract infection ICD Code: N39.0 Status: Acute (4) ARF (acute renal failure) ICD Code: N17.9 Status: Acute (5) DM2 (diabetes mellitus, type 2) ICD Code: E11.9 Status: Acute (6) HTN (hypertension) ICD Code: I10 Status: Acute (7) Umbilical hernia ICD Code: K42.9 Status: Acute (8) Constipation ICD Code: K59.00 Status: Acute Assessment and Plan Ascites, Acute 2/2 carcinomatosis Partial bowel obstruction S/p diagnostic and therapeutic paracentesis 7.1 liters patient with a history of cholecystectomy and cervical CA (xrt and chemo) Patient with carcinomatosis , consult Dr Fisher. s/p Diagnostic laparoscopy, paracentesis, biopsy of peritoneum and omentum on by Dr Calvillo appreciate recommendations Recent bowel change for 2 weeks with constipation KUB unremarkable, continue antiemetics for nausea and vomiting 01/31 GI follow-up appreciated Gen. surgery consulted. The patient s/p laparoscopy as above. Pathology pending. Oncology consulted - appreciate recommendations [employer] oncology consulted Dr Fisher . Awaiting recommendations. Hypoxia Acute Likely hypoventilation syndrome from obesity and ascites. Opinion supplemental oxygen to keep oxygen saturation more than 92%. Chest x-ray reviewed shows underinflation with atelectasis at the bases. CT reviewed shows small bibasilar effusion Continue incentive spirometry. Urinary tract infection Acute On IV Rocephin. Continue therapy for a total of 7 days. ARF (acute renal failure) Acute Patient presented with a creatinine of 1.7, trending down Resolved after IV fluid administration. DINA inhibitor held. DM2 (diabetes mellitus, type 2) Acute continue patient's home medications Diabetic diet Hemoglobin A1c greater than 9 Blood sugars are uncontrolled and very elevated - Start the patient on insulin Levemir 10 mg SQ BID HTN (hypertension) Acute BP stable. DINA inhibitor was held due to ALIREZA. Patient was started on Coreg as per Dr. Hadley, however patient refuses medication. Plan to start on DINA inhibitor once ALIREZA has resolved. Umbilical hernia Acute General surgery following Constipation Acute s/p enema, bowel regimen refuses endoscopy KUB unremarkable clear liquids and antiemetics Discussed with the patient, nurse. Discharge plan: Pending improvement and clearance by consultants. Consult PT for evaluation and treatment Problem Qualifiers (1) Ascites: Qualified Code: R18.8 - Other ascites (2) Urinary tract infection: Qualified Code: N30.00 - Acute cystitis without hematuria Faviola Urias MD Feb 03, 2017 12:32
--- NOTE | 2017-02-03 13:16 | HHI.GIFU ---
Subjective Remarks Patient resting in bed in no apparent distress. Reports diffuse abdominal tenderness, greater on left side. Nausea. (Griselda Martinez) Objective Vitals I&O Vital Signs Date Time Temp Pulse Resp B/P Pulse Ox O2 Delivery O2 Flow Rate FiO2 02/03/17 12:00 97.4 95 19 121/53 93 02/03/17 11:21 95 Nasal Cannula 3.00 02/03/17 08:25 3.00 02/03/17 08:00 97.4 92 18 126/65 92 02/03/17 00:00 96.9 95 20 131/65 94 02/02/17 21:12 91 Nasal Cannula 3.00 02/02/17 20:42 Nasal Cannula 2.00 02/02/17 20:12 98.6 90 17 148/88 97 02/02/17 16:00 96.5 95 19 146/61 92 I/O 02/02/17 02/02/17 02/02/17 02/03/17 02/03/17 02/03/17 07:00 15:00 23:00 07:00 15:00 23:00 Intake Total 360 ml 600 ml 970 ml 985 ml Output Total 800 ml 450 ml Balance 360 ml 600 ml 170 ml 535 ml Intake Oral 360 ml 600 ml 360 ml 360 ml IV Total 610 ml 625 ml Drainage Total 800 ml 450 ml # Voids 3 2 1 1 # Bowel Movements 0 Laboratory Laboratory Tests Test 01/27/17 01/29/17 01/31/17 02/01/17 12:20 21:00 13:35 01:39 Miscellaneous Test Result Iron Level 30 MCG/DL Total Iron Binding Capacity 192 MCG/DL Percent Iron Saturation 15.6 % Ferritin 230 NG/ML Tumor Marker Alpha Fetoprotein 1.2 NG/ML Carcinoembryonic Antigen 1.1 NG/ML CA 19-9 Antigen 21.2 U/ML CA 125 Antigen 348.8 U/ML Anti-Nuclear Antibody Screen NEG Hepatitis A IgM Antibody NEGATIVE Hepatitis B Surface Antigen NEGATIVE Hepatitis B Core IgM Antibody NEGATIVE Hepatitis C Antibody NEGATIVE [id number] 290 mg/dL Immunoglobulin A 364 mg/dL Anti-Smooth Muscle Antibody Negative Endomysial Antibody Titer Endomysial IgA Antibody Tissue Transglutaminase IgG Ab U/mL Tissue Transglutaminase IgA Ab LESS THAN 1 U/mL Celiac Disease Interpretation CA 15-3 Antigen 23.1 U/ML Prothrombin Time 10.5 SEC Prothromb Time International 1.0 RATIO Ratio Imaging Last Impressions Chest CT 01/31/17 0000 Signed Impressions: Service Date/Time: January 10:06 - CONCLUSION: 1. No discrete mass lesion identified. 2. Minimal bibasilar effusions with atelectatic changes in the lung bases. 3. No significant adenopathy. Juan Pleitez MD Abdomen X-Ray 01/28/17 0600 Signed Impressions: Service Date/Time: Saturday, January 28, 2017 15:13 - CONCLUSION: No definite bowel dilatation or free air is seen. Sriram Sunshine MD Cyst Biopsy Asp-Paracentesis US 01/27/17 0000 Signed Impressions: Service Date/Time: Friday, January 27, 2017 11:00 - CONCLUSION: Uncomplicated ultrasound guided paracentesis. Juan Pleitez MD Abdomen/Pelvis CT 01/26/17 1349 Signed Impressions: Service Date/Time: Thursday, January 26, 2017 14:38 - CONCLUSION: 1. Moderate to large amount of ascites without definitive etiology identified on CT. No definitive mesenteric mass or hepatic volume loss. Evaluation of the mesentery and liver are however limited due to lack of IV contrast. 2. Periumbilical anterior bowel wall hernia containing fat and ascites fluid. Myke Kendall MD ADDENDUM: Reexamination of the pelvic CT exam does demonstrate a small uterus which appears unremarkable by CT. The uterus was originally reported as surgically absent. Myke Kendall MD Chest X-Ray 01/26/17 1155 Signed Impressions: Service Date/Time: Thursday, January 26, 2017 12:13 - CONCLUSION: Underinflated examination with atelectasis at the bases. No acute finding is identified. Sriram Paul MD Renal Ultrasound 01/26/17 0000 Signed Impressions: Service Date/Time: Thursday, January 26, 2017 17:59 - CONCLUSION: Ultrasound appearance of the kidneys and urinary bladder within normal limits. Sriram Kaufman MD Physical Exam HEENT: Normocephalic; atraumatic; no jaundice. Legally blind. CHEST: Resp shallow/even, Diminished breath sounds CARDIAC: RRR. ABDOMEN: Soft, obese, nondistended, mild diffuse tenderness, umbilical hernia, no hepatosplenomegaly; bowel sounds hypoactive. S/P lap surgery. EXTREMITIES: right upper extremity/hand deformity, cyanosis, trace LE edema SKIN: Normal; no rash; no jaundice. EQUIPMENT MECHANIC SPECIALIST: No focal deficits; alert and oriented times three. (Griselda Martinez) Assessment and Plan Plan ASSESSMENT: - New onset ascites, suspicious for malignancy. S/P US guided paracentesis ()---> 7,100cc cloudy yellow fluid was removed. No albumin or protein done on peritoneal fluid. Abdomen/Pelvis CT (01/26/17)-----> 1. Moderate to large amount of ascites without definitive etiology identified on CT. No definitive mesenteric mass or hepatic volume loss. Evaluation of the mesentery and liver are however limited due to lack of IV contrast. 2. Periumbilical anterior bowel wall hernia containing fat and ascites fluid. ADDENDUM: Reexamination of the pelvic CT exam does demonstrate a small uterus which appears unremarkable by CT. The uterus was originally reported as surgically absent. Chest CT (01/31/17)----> 1. No discrete mass lesion identified. 2. Minimal bibasilar effusions with atelectatic changes in the lung bases. 3. No significant adenopathy. She has a history of cervical cancer. Hepatitis negative. HUBER negative, Celiac negative. Ferritin 230, Iron saturation 15.6. Alpha 1 antitrypsin 290, Ceruloplasmin pending, AFP 1.2, CEA 1.1, Ca 15-3 23.1, Ca 19-9 21.2, Ca 125 348.8. S/P Diagnostic laparoscopy, paracentesis, biopsy peritoneum and omentum---> carcinomatosis. Peritoneal fluid pathology positive for malignant cells, suggestive of adenocarcinoma. Oncology is following. [employer] Surgical - Constipation. Abdomen X-Ray (01/28/17)----> No definite bowel dilatation or free air is seen. + BM 01/31. - Nausea, vomiting. Nausea. Tolerating liquids. Improving. - Abdominal pain. Intermittent diffuse abdominal discomfort. Pain management per attending. - DM, HTN, nephropathy, neuropathy, recurrent UTI per primary - Hx cervical cancer, s/p radiation and chemotherapy in 2003. Recommendations: - LELO - Await biopsy results - Supportive care - Oncology following - GS following - [employer]RO[employer] Oncology consulted - Further recommendations to follow based on results of above Patient seen and examined by Dr. Matta and myself and this note is written on his behalf await cytology report consider egd/colonoscopy if cytology and laparoscopy negative, patient is reluctant to do so (Griselda Martinez) Physician Comments patient was seen and examined, agree with above note and plan, malignant cells from ascitic fluid (Layo Matta MD) Griselda Martinez Feb 03, 2017 13:16 Layo Matta MD Feb 03, 2017 14:18
--- NOTE | 2017-02-03 14:09 | PD.PN.STU ---
Subjective Remarks States that Zofran has helped with nausea. Abdominal pain is well controlled on current medications. Passing gas but has not had a BM. Denies nausea, vomiting, constipation, and diarrhea. Surgical site draining ample amounts of serosanguineous discharge. Objective Vitals Vital Signs Date Time Temp Pulse Resp B/P Pulse Ox O2 Delivery O2 Flow Rate FiO2 02/03/17 12:00 97.4 95 19 121/53 93 02/03/17 11:21 95 Nasal Cannula 3.00 02/03/17 08:25 3.00 02/03/17 08:00 97.4 92 18 126/65 92 02/03/17 00:00 96.9 95 20 131/65 94 02/02/17 21:12 91 Nasal Cannula 3.00 02/02/17 20:42 Nasal Cannula 2.00 02/02/17 20:12 98.6 90 17 148/88 97 02/02/17 16:00 96.5 95 19 146/61 92 I/O 02/02/17 02/02/17 02/02/17 02/03/17 02/03/17 02/03/17 07:00 15:00 23:00 07:00 15:00 23:00 Intake Total 360 ml 600 ml 970 ml 985 ml Output Total 800 ml 450 ml Balance 360 ml 600 ml 170 ml 535 ml Intake Oral 360 ml 600 ml 360 ml 360 ml IV Total 610 ml 625 ml Drainage Total 800 ml 450 ml # Voids 3 2 1 1 # Bowel Movements 0 Other Results Objective Remarks GENERAL: This is a pleasant morbidly obese female, well-nourished, well- developed patient. Poor vision in right eye. CARDIOVASCULAR: Regular rate and rhythm without murmurs, gallops, or rubs. RESPIRATORY: Clear to auscultation. Breath sounds equal bilaterally. No wheezes , rales, or rhonchi. GASTROINTESTINAL: Abdomen soft, obese, non-tender, not distended. Hypo-active bowel sounds. Umbilical hernia. s/p lap surgery with drainage from lower lap site; discharge flowing freely with gravity via a stoma bag connected to a White bag MUSCULOSKELETAL: Right hand underdeveloped, other 3 Extremities without clubbing , cyanosis, there is trace LE edema. NEURO: Legally blind. Right sclerotic eye. Alert & Oriented x4 to person, place, time, situation. Moves all ext x4 A/P Assessment and Plan Ascites, Acute 2/2 carcinomatosis - s/p diagnostic and therapeutic paracentesis 7.1 liters - Patient with a history of cholecystectomy and cervical CA (xrt and chemo) - Patient with carcinomatosis , consult Dr Fisher. s/p Diagnostic laparoscopy, paracentesis, biopsy of peritoneum and omentum on 02/01/[address] Calvillo appreciate recommendations - Recent bowel change for 2 weeks with constipation - KUB unremarkable, continue antiemetics for nausea and vomiting - 01/31 GI follow-up appreciated - Gen. surgery consulted. The patient s/p laparoscopy as above. Pathology pending. - Oncology consulted - appreciate recommendations - [employer] oncology consulted. Awaiting recommendations. Hypoxia - Acute - Likely hypoventilation syndrome from obesity and ascites. - Opinion supplemental oxygen to keep oxygen saturation more than 92%. - Chest x-ray obtained on shows underinflated examination with atelectasis at the bases. - Will order incentive spirometry. Urinary tract infection - Acute - On IV Rocephin. Continue therapy for a total of 7 days. ARF (acute renal failure) - Acute - Patient presented with a creatinine of 1.7, down to 0.96. - Resolved after IV fluid administration. - DINA inhibitor was held. DM2 (diabetes mellitus, type 2) - Acute - continue patient's home medications - Diabetic diet - Hemoglobin A1c greater than 9 - Blood sugars are uncontrolled and very elevated - Will start the patient on insulin Levemir 10 mg SQ BID HTN (hypertension) - BP stable. DINA inhibitor was held due to ALIREZA. - Patient was started on Coreg as per Dr. Hadley, however patient refuses medication. - Can restart on DINA inhibitor since ALIREZA has resolved. Umbilical hernia: followed by general surgery Constipation - Acute s/p enema, bowel regimen - refuses endoscopy - KUB unremarkable - clear liquids and antiemetics Discussed with the patient, nurse. Discharge plan: Pending improvement and clearance by consultants. Consult PT for evaluation and treatment Jammie Hamilton Feb 03, 2017 14:09 Faviola Urias MD Feb 03, 2017 18:58
--- NOTE | 2017-02-03 14:49 | HHI.PR ---
Subjective Subjective Notes resting Objective Vitals/I&O Vital Signs Date Time Temp Pulse Resp B/P Pulse Ox O2 Delivery O2 Flow Rate FiO2 02/03/17 12:00 97.4 95 19 121/53 93 02/03/17 11:21 Nasal Cannula 3.00 01/31/17 09:[address] abdomen/pelvis- moderate to large amount of ascites without definitive etiology. The umbilical anterior bowel wall hernia containing fat and ascites fluid. Abdomen: Non-distended, Post-op tenderness A/P Assessment and Plan 62yo female s/p diagnostic laparoscopy, stable. - d/w RN, patient need PT consult for OOB - pain controlled - eating some food Manuel Peck MD Feb 03, 2017 14:49
[2017-02-03] MEDS: ACETAMINOPHEN/HYDROcodone 325 MG/5 MG TAB PO PRN (15:46)
[2017-02-03] MEDS: cefTRIAXone INJ 1,000 MG in SODIUM CHLORIDE 0.9% INJ 100 ML IV SCH (17:49)
[2017-02-04 00:11] VITALS: BP 118/55; PULSE 89; RESP 18; TEMP 98.9; O2SAT 95
[2017-02-04] MEDS: INSULIN ASPART SUPPLEMENTAL SCALE SQ SCH ×4 (05:46→21:53)
[2017-02-04 08:00] VITALS: BP 126/59; PULSE 93; RESP 20; TEMP 99.1; O2SAT 94
[2017-02-04] MEDS: CARVEDILOL 12.5 MG TAB PO SCH ×2 (09:00→20:06)
[2017-02-04] MEDS: NYSTATIN 100,000 U/GM PWD 15 GM BTL TOPICAL SCH ×2 (09:00→20:08)
[2017-02-04] MEDS: SODIUM CHLORIDE 0.9% FLUSH 10 ML FLUSH IV FLUSH SCH ×3 (09:00→20:06)
[2017-02-04] MEDS: DOCUSATE SODIUM 50 MG/SENNA 8.6 MG TAB PO SCH ×3 (09:00→20:07)
[2017-02-04 09:25] VITALS: O2SAT 95
--- NOTE | 2017-02-04 09:51 | HHI.PR ---
Subjective Remarks No new complaints today. Patient does not yet feel fully ambulatory and has not yet returned to baseline. She is status post a prostate be with 7.1 L removed. Objective Vital Signs Date Time Temp Pulse Resp B/P Pulse Ox O2 Delivery O2 Flow Rate FiO2 02/04/17 09:25 95 Nasal Cannula 3.00 02/04/17 08:00 99.1 93 20 126/59 94 02/04/17 00:11 98.9 89 18 118/55 95 02/03/17 20:25 96.9 91 20 102/65 95 02/03/17 19:46 Nasal Cannula 2.00 02/03/17 17:39 93 Nasal Cannula 3.00 02/03/17 12:00 97.4 95 19 121/53 93 02/03/17 11:21 95 Nasal Cannula 3.00 I/O 02/03/17 02/03/17 02/03/17 02/04/17 02/04/17 02/04/17 07:00 15:00 23:00 07:00 15:00 23:00 Intake Total 985 ml 960 ml 380 ml 480 ml Output Total 450 ml 2000 ml 600 ml Balance 535 ml 960 ml -1620 ml -120 ml Intake Oral 360 ml 960 ml 380 ml 480 ml IV Total 625 ml Drainage Total 450 ml 2000 ml 600 ml # Voids 1 1 2 2 # Bowel Movements 0 0 Objective Remarks GENERAL: NAD, A&Ox3, severe obesity HEAD: Normocephalic. NECK: Supple, trachea midline. No lymphadenopathy. EYES: No scleral icterus. No injection or drainage. CARDIOVASCULAR: Regular rate and rhythm without murmurs, gallops, or rubs. RESPIRATORY: Breath sounds equal bilaterally. No accessory muscle use. GASTROINTESTINAL: Abdomen soft, non-tender, nondistended. MUSCULOSKELETAL: No cyanosis, or edema. SKIN: Warm and dry. NEURO: No focal neurological deficitis. Medications and IVs Administered Medications Medications (Trade) Dose Ordered Sig/Rigoberto Route PRN Reason Start Time Stop Time Status Last Admin Dose Admin Sodium Chloride (NS Flush) 2 ml BID IV FLUSH 01/26/17 21:00 02/03/17 19:39 Ondansetron HCl (Zofran Inj) 4 mg Q6H PRN IVP NAUSEA OR VOMITING 01/26/17 16:15 02/03/17 09:53 Alprazolam (Xanax) 0.5 mg Q8H PRN PO ANXIETY 01/26/17 16:15 02/01/17 22:23 Brimonidine Tartrate (Alphagan 0.2% Opth Soln) 1 drop BID EACH EYE 01/26/17 21:00 02/03/17 19:38 Glyburide (Diabeta) 5 mg DAILY PO 01/27/17 09:00 Hold 01/29/17 08:54 Insulin Human Isoph/Insulin Regular (NovoLIN 70/30 INJ) 40 units DAILY SQ 01/27/17 09:00 Hold 01/29/17 09:00 Timolol Maleate (Timoptic 0.5% Opth Soln) 1 drop BID EACH EYE 01/26/17 21:00 02/03/17 19:39 Senna/Docusate Sodium (Astrid-Colace) 1 tab BID PO 01/27/17 21:00 02/03/17 09:54 Magnesium Hydroxide (Milk Of Magnesia Liq) 30 ml Q12H PRN PO MILD - MODERATE CONSTIPATION 01/27/17 17:00 01/29/17 15:53 Sennosides (Senokot) 17.2 mg Q12H PRN PO MODERATE - SEVERE CONSTIPATION 01/27/17 17:00 01/27/17 18:55 Lactulose 30 ml 30 ml DAILY PRN PO SEVERE CONSITIPATION 01/27/17 17:00 01/27/17 18:55 Ceftriaxone Sodium/Sodium Chloride (Rocephin Inj/NS Inj) 100 ml @ 200 mls/hr Q24H IV 01/29/17 18:00 02/03/17 17:49 Enoxaparin Sodium (Lovenox Inj) 40 mg Q24H SQ 01/29/17 12:00 02/03/17 11:59 Insulin Detemir (Levemir Inj) 10 units Q12HR SQ 01/31/17 21:00 02/03/17 19:43 Acetaminophen/ Hydrocodone Bitart 1 tab 1 tab Q4H PRN PO PAIN SCALE 1 TO 5 02/01/17 15:30 02/03/17 15:46 Sodium Chloride (NS 1000 ml Inj) 1,000 ml @ 100 mls/hr Q10H IV 02/02/17 10:59 02/03/17 19:40 A/P Problem List: (1) Ascites ICD Code: R18.8 (2) Hypoxia ICD Code: R09.02 (3) Abdominal distention ICD Code: R14.0 (4) Umbilical hernia ICD Code: K42.9 Assessment and Plan Assessment and Plan 62-year-old female admitted with hypoxia and abdominal distention related to ascites. Suspected carcinomatosis. Ascites Follow cytology from last paracentesis Suspected carcinomatosis History of cervical cancer in the past Gynecology following Surgery following GI following Oncology following Hypoxia Likely a combination of obesity and ascites Continue oxygen as needed Status post drainage of ascites Wean oxygen as tolerated Urinary tract infection Resolved Treatment completed ARF (acute renal failure) Resolved Chronic kidney disease may be present Follow renal function Diabetes mellitus type 2 Follow blood sugars Insulin sliding scale Diabetic diet Levemir 10 mg SQ BID HTN (hypertension) Follow blood pressures Currently stable No change in present treatment Umbilical hernia Acute phase is likely related to ascites Follow clinically for now She is not a good surgical candidate Constipation As needed laxatives Global weakness Continue physical therapy Discharge plan: Physical therapy ongoing, [place] [facility] facility versus home health care discharge. Problem Qualifiers (1) Ascites: Qualified Code: R18.8 - Other ascites Juan Gallegos MD Feb 04, 2017 9:51 am
[2017-02-04] MEDS: INSULIN DETEMIR 100 UNITS/ML VIAL SQ SCH ×2 (10:20→21:54)
[2017-02-04] MEDS: ACETAMINOPHEN/HYDROcodone 325 MG/5 MG TAB PO PRN (10:21)
--- NOTE | 2017-02-04 10:22 | PD.CONS ---
History of Present Illness Service PLASTIC BOAT BUFFER/ONC Consult Requested By FELIPE Hansen Dr. Reason for Consult malignant ascites with PMH of cervical cancer Primary Care Physician Erin Frazier MD Diagnoses: (1) Ascites History of Present Illness This is a 62 year old female who came to ER in [place] for abdominal pain, distention and possible UTI. She has a PMH of cervical cancer treated back [place] [address] Shen with weekly IV chemo and radiation. She does not know if her cervical cancer was squamous cell or adenocarcinoma. She admits she did not regularly follow up for surveillance visits once her treatment was completed. She denies any trouble with urination, she has been having loose stool. Ct scan obtained shown ascites with no definitive masses. It also commented on small uterus that appears unremarkable. Patient was taken for drainage of ascites and adenocarcinoma was reported with cytology. She was also taken for peritoneal bx and omental bx by Dr. Calvillo and that pathology is pending. Pt tells me that she is anxious to go home and get her affairs in order, she is unsure who she would have make medical decisions for her is she should become incapacitated. She does tell me that she does want to fight this cancer once treatment recommendations are made. I explained that would come from final pathology, that adenocarcinoma can start in a number of organs and it is not always all treated the same. I explained we are here to give recommendations but she is the final decision maker and wether she chooses treatment or not that is her choice. Review of Systems Gastrointestinal: COMPLAINS OF: Abdominal pain abdominal distention loose stool Past Family Social History Allergies: Coded Allergies: Penicillin (Verified Allergy, Severe, SWELLING, 01/26/17) Past Medical History Diabetes Hypertension Diabetic nephropathy and neuropathy and retinopathy cervical cancer 2003 tx radiation and chemo Past Surgical History port placed and removed Reported Medications per EMR Active Ordered Medications Current Medications Sodium Chloride (NS Flush) 2 ml UNSCH PRN IVF FLUSH AFTER USING IV ACCESS; Start 01/26/17 at 12:00; Stop 01/26/17 at 16:40; Status DC Diatrizoate Meglum/ Diatrizoate Sod 18 ml 18 ml STK-MED ONCE .ROUTE Last administered on 01/26/17t 13:28; Start 01/26/17 at 13:13; Stop 01/26/17 at 13:14 ; Status DC Ceftriaxone Sodium/Sodium Chloride (Rocephin Inj/NS Inj) 100 ml @ 200 mls/hr ONCE ONCE IV Last administered on 01/26/17 15:29; Start 01/26/17 at 15:30; Stop 01/26/17 at 15:59; Status DC Furosemide (Lasix Inj) 40 mg ONCE ONCE IV PUSH Last administered on 01/26/17 16:21; Start 01/26/17 at 15:45; Stop 01/26/17 at 15:46; Status DC Sodium Chloride (NS Flush) 2 ml UNSCH PRN IV FLUSH FLUSH AFTER USING IV ACCESS ; Start 01/26/17 at 16:15 Sodium Chloride (NS Flush) 2 ml BID IV FLUSH Last administered on 02/03/17 19: 39; Start 01/26/17 at 21:00 Ondansetron HCl (Zofran Inj) 4 mg Q6H PRN IVP NAUSEA OR VOMITING Last administered on 02/03/17 09:53; Start 01/26/17 at 16:15 Dextrose (D50w (Vial) Inj) 50 ml UNSCH PRN IV HYPOGLYCEMIA-SEE COMMENTS; Start 01/26/17 at 16:15 Glucagon (Glucagon Inj) 1 mg UNSCH PRN OTHER HYPOGLYCEMIA-SEE COMMENTS; Start 01/26/17 at 16:15 Insulin Aspart (NovoLOG SUPPLEMENTAL SCALE) 1 ACHS SLIDING SCALE SQ Last administered on 01/29/17 06:22; Start 01/26/17 at 21:00; Stop 01/29/17 at 11:01 ; Status DC Furosemide 20 mg 20 mg DAILY IV PUSH Last administered on 01/29/17 08:55; Start 01/27/17 at 09:00; Stop 01/29/17 at 11:07; Status DC Ceftriaxone Sodium/Sodium Chloride (Rocephin Inj/NS Inj) 100 ml @ 200 mls/hr Q24H IV Last administered on 01/28/17 17:51; Start 01/27/17 at 16:00; Stop at 11:01; Status DC Alprazolam (Xanax) 0.5 mg Q8H PRN PO ANXIETY Last administered on 02/01/17 22: 23; Start 01/26/17 at 16:15 Brimonidine Tartrate (Alphagan 0.2% Opth Soln) 1 drop BID EACH EYE Last administered on 02/03/17 19:38; Start 01/26/17 at 21:00 Glyburide (Diabeta) 5 mg DAILY PO Last administered on 01/29/17 08:54; Start 01/27/17 at 09:00; Status Hold Insulin Human Isoph/Insulin Regular (NovoLIN 70/30 INJ) 40 units DAILY SQ Last administered on 01/29/17 09:00; Start 01/27/17 at 09:00; Status Hold Timolol Maleate (Timoptic 0.5% Opth Soln) 1 drop BID EACH EYE Last administered on 02/03/17 19:39; Start 01/26/17 at 21:00 Senna/Docusate Sodium (Astrid-Colace) 1 tab BID PO Last administered on 09:54; Start 01/27/17 at 21:00 Magnesium Hydroxide (Milk Of Magnesia Liq) 30 ml Q12H PRN PO MILD - MODERATE CONSTIPATION Last administered on 01/29/17 15:53; Start 01/27/17 at 17:00 Sennosides (Senokot) 17.2 mg Q12H PRN PO MODERATE - SEVERE CONSTIPATION Last administered on 01/27/17 18:55; Start 01/27/17 at 17:00 Bisacodyl (Dulcolax Supp) 10 mg DAILY PRN RECTAL SEVERE CONSITIPATION; Start at 17:00 Lactulose (Lactulose Liq) 30 ml DAILY PRN PO SEVERE CONSITIPATION Last administered on 01/27/17 18:55; Start 01/27/17 at 17:00 Carvedilol 12.5 mg 12.5 mg Q12HR PO ; Start 01/28/17 at 13:52 Ceftriaxone Sodium/Sodium Chloride (Rocephin Inj/NS Inj) 100 ml @ 200 mls/hr Q24H IV Last administered on 02/03/17 17:49; Start 01/29/17 at 18:00 Insulin Aspart (NovoLOG SUPPLEMENTAL SCALE) 1 ACHS SLIDING SCALE SQ Last administered on 02/04/17 05:46; Start 01/29/17 at 12:00 Sodium Biphosphate/ Sodium Phosphate (Fleets Enema (Adult)) 133 ml ONCE ONCE RECTAL Last administered on 01/29/17 15:11; Start 01/29/17 at 12:00; Stop at 12:01; Status DC Enoxaparin Sodium (Lovenox Inj) 40 mg Q24H SQ Last administered on 02/03/17 11 :59; Start 01/29/17 at 12:00 Prochlorperazine Edisylate (Compazine Inj) 10 mg Q8H PRN IV PUSH nausea; Start 01/30/17 at 11:00 Insulin Detemir 10 units 10 units Q12HR SQ Last administered on 02/03/17 19:43 ; Start 01/31/17 at 21:00 Lactated Ringer's 1,000 ml @ 30 mls/hr Q24H PRN IV SEE LABEL COMMENTS; Start at 05:15; Stop 02/04/17 at 05:14; Status DC Sodium Chloride (NS 500 ml Inj) 500 ml @ 30 mls/hr [id number] PRN IV SEE LABEL COMMENTS; Start 02/01/17 at 05:15; Stop 02/04/17 at 05:14; Status DC Metoprolol Tartrate (Lopressor) 25 mg COMMERCIAL ART INSTRUCTOR PRN PO SEE LABEL COMMENTS; Start 02/01/17 at 05:15; Stop 02/04/17 at 05:14; Status DC Povidone Iodine (Betadine 5% Antisepsis Kit) 1 applic COMMERCIAL ART INSTRUCTOR PRN EACH NARE SEE LABEL COMMENTS; Start 02/01/17 at 05:15; Stop 02/04/17 at 05:14; Status DC Chlorhexidine Gluconate (Chlorhexidine 2% Cloth) 3 pack COMMERCIAL ART INSTRUCTOR PRN TOPICAL SEE LABEL COMMENTS; Start 02/01/17 at 05:15; Stop 02/04/17 at 05:14; Status DC Insulin Human Regular (NovoLIN R INJ) See Protocol Table ... COMMERCIAL ART INSTRUCTOR PRN SQ SEE PROTOCOL TABLE; Start 02/01/17 at 05:15; Stop 02/04/17 at 05:14; Status DC Fentanyl Citrate (fentaNYL INJ) 250 mcg STK-MED ONCE .ROUTE ; Start 02/01/17 at 12:42; Stop 02/01/17 at 12:43; Status DC Bupivacaine HCl/ Epinephrine Bitart (Sensorcaine-Epinephrine Pf 0.5% Inj) 30 ml STK-MED ONCE .ROUTE Last administered on 02/01/17 14:11; Start 02/01/17 at 12: 50; Stop 02/01/17 at 12:51; Status DC Ceftriaxone Sodium (Rocephin Inj) 2,000 mg STK-MED ONCE .ROUTE Last administered on 02/01/17 13:48; Start 02/01/17 at 13:07; Stop 02/01/17 at 13:08 ; Status DC Nystatin (Mycostatin Powder) 1 applic Q12HR TOPICAL ; Start 02/01/17 at 21:00 Acetaminophen/ Hydrocodone Bitart (Nazlini 5-325 Mg) 1 tab Q4H PRN PO PAIN SCALE 1 TO 5 Last administered on 02/03/17 15:46; Start 02/01/17 at 15:30 Morphine Sulfate (Morphine Inj) 4 mg Q3H PRN IV PUSH PAIN SCALE 6 TO 10; Start 02/01/17 at 15:30 Albuterol Sulfate (*ALBUTEROL NEB PERIprocedure ONLY) 2.5 mg STK-MED ONCE NEB Last administered on 02/01/17 16:06; Start 02/01/17 at 16:06; Stop 02/01/17 at 16:07; Status DC Ondansetron HCl (*ZOFRAN INJ PERIprocedural ONLY) 4 mg STK-MED ONCE .ROUTE Last administered on 02/01/17 16:28; Start 02/01/17 at 16:28; Stop 02/01/17 at 16:29; Status DC Miscellaneous Information ALL NURSING DEPARTME... UNSCH PRN .XX SEE LABEL COMMENTS; Start 02/01/17 at 16:45; Stop 02/02/17 at 16:44; Status DC Sodium Chloride (NS 1000 ml Inj) 1,000 ml @ 100 mls/hr Q10H IV Last administered on 02/03/17 19:40; Start 02/02/17 at 10:59 Sodium Chloride (NS Flush) 2 ml UNSCH PRN IV FLUSH FLUSH AFTER USING IV ACCESS ; Start 02/02/17 at 11:00 Sodium Chloride (NS Flush) 2 ml BID IV FLUSH ; Start 02/02/17 at 21:00 Ondansetron HCl (Zofran Inj) 4 mg Q6H PRN IVP NAUSEA OR VOMITING; Start at 11:00 Senna/Docusate Sodium (Astrid-Colace) 1 tab BID PO ; Start 02/02/17 at 21:00 Magnesium Hydroxide (Milk Of Magnesia Liq) 30 ml Q12H PRN PO MILD - MODERATE CONSTIPATION; Start 02/02/17 at 11:00 Sennosides (Senokot) 17.2 mg Q12H PRN PO MODERATE - SEVERE CONSTIPATION; Start 02/02/17 at 11:00 Bisacodyl (Dulcolax Supp) 10 mg DAILY PRN RECTAL SEVERE CONSITIPATION; Start at 11:00 Lactulose (Lactulose Liq) 30 ml DAILY PRN PO SEVERE CONSITIPATION; Start at 11:00 Phenol (Chloraseptic Fowler) 2 spray Q2H PRN OROPHARYNG sore throat; Start 02/02 at 16:30 Family History sister last year of pancreatic cancer son in accident Social History lives alone past smoker denies alcohol Physical Exam Vital Signs Vital Signs Date Time Temp Pulse Resp B/P Pulse Ox O2 Delivery O2 Flow Rate FiO2 02/04/17 09:25 95 Nasal Cannula 3.00 02/04/17 08:00 99.1 93 20 126/59 94 02/04/17 00:11 98.9 89 18 118/55 95 02/03/17 20:25 96.9 91 20 102/65 95 02/03/17 19:46 Nasal Cannula 2.00 02/03/17 17:39 93 Nasal Cannula 3.00 02/03/17 12:00 97.4 95 19 121/53 93 02/03/17 11:21 95 Nasal Cannula 3.00 Physical Exam GENERAL: This is a well-nourished, well-developed patient, in no apparent distress. SKIN: No rashes, ecchymoses or lesions. Cool and dry. HEAD: Atraumatic. Normocephalic. No temporal or scalp tenderness. EYES: Pupils equal round and reactive. Extraocular motions intact. No scleral icterus. No injection or drainage. CARDIOVASCULAR: Regular rate and rhythm without murmurs, gallops, or rubs. RESPIRATORY: Clear to auscultation. Breath sounds equal bilaterally. No wheezes , rales, or rhonchi. GASTROINTESTINAL: Abdomen soft, non-tender, nondistended. MUSCULOSKELETAL: TEDs and SCDs NEUROLOGICAL: Awake and alert. normal speech Laboratory Laboratory Tests Test 01/27/17 01/29/17 01/31/17 02/01/17 12:20 21:00 13:35 01:39 Miscellaneous Test Result [id number] 290 mg/dL Immunoglobulin A 364 mg/dL Anti-Smooth Muscle Antibody Negative Endomysial Antibody Titer Endomysial IgA Antibody Tissue Transglutaminase IgG Ab U/mL Tissue Transglutaminase IgA Ab LESS THAN 1 U/mL Celiac Disease Interpretation CA 15-3 Antigen 23.1 U/ML Prothrombin Time 10.5 SEC Prothromb Time International 1.0 RATIO Ratio Imaging Last Impressions Chest CT 01/31/17 0000 Signed Impressions: Service Date/Time: January 10:06 - CONCLUSION: 1. No discrete mass lesion identified. 2. Minimal bibasilar effusions with atelectatic changes in the lung bases. 3. No significant adenopathy. Juan Pleitez MD Abdomen X-Ray 01/28/17 0600 Signed Impressions: Service Date/Time: Saturday, January 28, 2017 15:13 - CONCLUSION: No definite bowel dilatation or free air is seen. Sriram Sunshine MD Cyst Biopsy Asp-Paracentesis US 01/27/17 0000 Signed Impressions: Service Date/Time: Friday, January 27, 2017 11:00 - CONCLUSION: Uncomplicated ultrasound guided paracentesis. Juan Pleitez MD Abdomen/Pelvis CT 01/26/17 1349 Signed Impressions: Service Date/Time: Thursday, January 26, 2017 14:38 - CONCLUSION: 1. Moderate to large amount of ascites without definitive etiology identified on CT. No definitive mesenteric mass or hepatic volume loss. Evaluation of the mesentery and liver are however limited due to lack of IV contrast. 2. Periumbilical anterior bowel wall hernia containing fat and ascites fluid. Myke Kendall MD ADDENDUM: Reexamination of the pelvic CT exam does demonstrate a small uterus which appears unremarkable by CT. The uterus was originally reported as surgically absent. Myke Kendall MD Chest X-Ray 01/26/17 1155 Signed Impressions: Service Date/Time: Thursday, January 26, 2017 12:13 - CONCLUSION: Underinflated examination with atelectasis at the bases. No acute finding is identified. Sriram Paul MD Renal Ultrasound 01/26/17 0000 Signed Impressions: Service Date/Time: Thursday, January 26, 2017 17:59 - CONCLUSION: Ultrasound appearance of the kidneys and urinary bladder within normal limits. Sriram Kaufman MD Assessment and Plan Problem List: (1) Ascites Status: Acute Plan: not known at this time if the is recurrent cervical cancer or a new primary cytology reports adenocarcinoma pathology is pending treatment based on final pathology, pt can follow up in Insect Control Aide/Onc clinic as outpt Ok to discharge per computer graphic designer/onc once OK with medical team. Discussed Condition With Dr. Tinoco and he is in agreement with this plan of care. Problem Qualifiers (1) Ascites: Qualified Code: R18.0 - Malignant ascites Dada Grant Feb 04, 2017 10:22
[2017-02-04] MEDS: TIMOLOL MALEATE 0.5% OPHT SOLN 5 ML BTL EACH EYE SCH ×2 (10:24→20:05)
[2017-02-04] MEDS: BRIMONIDINE TARTRATE 0.2% OPHT SOLN 5 ML BTL EACH EYE SCH ×2 (10:24→20:04)
--- NOTE | 2017-02-04 11:31 | HHI.GIFU ---
Subjective Remarks Up in chair. Tolerating diet. Is having some belching. Has not had a bowel movement yet, but is passing flatus. Having ascitic fluid draining from previous site. Collection bag in place. Objective Vitals I&O Vital Signs Date Time Temp Pulse Resp B/P Pulse Ox O2 Delivery O2 Flow Rate FiO2 02/04/17 09:25 95 Nasal Cannula 3.00 02/04/17 08:00 99.1 93 20 126/59 94 02/04/17 00:11 98.9 89 18 118/55 95 02/03/17 20:25 96.9 91 20 102/65 95 02/03/17 19:46 Nasal Cannula 2.00 02/03/17 17:39 93 Nasal Cannula 3.00 02/03/17 12:00 97.4 95 19 121/53 93 I/O 02/03/17 02/03/17 02/03/17 02/04/17 02/04/17 02/04/17 07:00 15:00 23:00 07:00 15:00 23:00 Intake Total 985 ml 960 ml 380 ml 480 ml Output Total 450 ml 2000 ml 600 ml Balance 535 ml 960 ml -1620 ml -120 ml Intake Oral 360 ml 960 ml 380 ml 480 ml IV Total 625 ml Drainage Total 450 ml 2000 ml 600 ml # Voids 1 1 2 2 # Bowel Movements 0 0 Imaging Last Impressions Chest CT 01/31/17 0000 Signed Impressions: Service Date/Time: January 10:06 - CONCLUSION: 1. No discrete mass lesion identified. 2. Minimal bibasilar effusions with atelectatic changes in the lung bases. 3. No significant adenopathy. Juan Pleitez MD Abdomen X-Ray 01/28/17 0600 Signed Impressions: Service Date/Time: Saturday, January 28, 2017 15:13 - CONCLUSION: No definite bowel dilatation or free air is seen. Sriram Sunshine MD Cyst Biopsy Asp-Paracentesis US 01/27/17 0000 Signed Impressions: Service Date/Time: Friday, January 27, 2017 11:00 - CONCLUSION: Uncomplicated ultrasound guided paracentesis. Juan Pleitez MD Abdomen/Pelvis CT 01/26/17 1349 Signed Impressions: Service Date/Time: Thursday, January 26, 2017 14:38 - CONCLUSION: 1. Moderate to large amount of ascites without definitive etiology identified on CT. No definitive mesenteric mass or hepatic volume loss. Evaluation of the mesentery and liver are however limited due to lack of IV contrast. 2. Periumbilical anterior bowel wall hernia containing fat and ascites fluid. Myke Kendall MD ADDENDUM: Reexamination of the pelvic CT exam does demonstrate a small uterus which appears unremarkable by CT. The uterus was originally reported as surgically absent. Myke Kendall MD Chest X-Ray 01/26/17 1155 Signed Impressions: Service Date/Time: Thursday, January 26, 2017 12:13 - CONCLUSION: Underinflated examination with atelectasis at the bases. No acute finding is identified. Sriram Paul MD Renal Ultrasound 01/26/17 0000 Signed Impressions: Service Date/Time: Thursday, January 26, 2017 17:59 - CONCLUSION: Ultrasound appearance of the kidneys and urinary bladder within normal limits. Sriram Kaufman MD Physical Exam HEENT: Normocephalic; atraumatic; no jaundice. Legally blind. CHEST: Resp shallow/even, Diminished breath sounds CARDIAC: RRR. ABDOMEN: Soft, obese, nondistended, mild diffuse tenderness, umbilical hernia, no hepatosplenomegaly; bowel sounds hypoactive. Collection bag collecting ascitic fluid. EXTREMITIES: right upper extremity/hand deformity, cyanosis, BLE edema SKIN: Normal; no rash; no jaundice. HOSPITAL SCIENTIST: No focal deficits; alert and oriented times three. Assessment and Plan Plan ASSESSMENT: - New onset ascites, suspicious for malignancy. S/P US guided paracentesis ()---> 7,100cc cloudy yellow fluid was removed. No albumin or protein done on peritoneal fluid. Abdomen/Pelvis CT (01/26/17)-----> 1. Moderate to large amount of ascites without definitive etiology identified on CT. No definitive mesenteric mass or hepatic volume loss. Evaluation of the mesentery and liver are however limited due to lack of IV contrast. 2. Periumbilical anterior bowel wall hernia containing fat and ascites fluid. ADDENDUM: Reexamination of the pelvic CT exam does demonstrate a small uterus which appears unremarkable by CT. The uterus was originally reported as surgically absent. Chest CT (01/31/17)----> 1. No discrete mass lesion identified. 2. Minimal bibasilar effusions with atelectatic changes in the lung bases. 3. No significant adenopathy. She has a history of cervical cancer. Hepatitis negative. HUBER negative, Celiac negative. Ferritin 230, Iron saturation 15.6. Alpha 1 antitrypsin 290, Ceruloplasmin pending, AFP 1.2, CEA 1.1, Ca 15-3 23.1, Ca 19-9 21.2, Ca 125 348.8. Cytology positive for malignant cells, suggestive of adenocarcinoma- pattern of staining could be seen in adenocarcinoma of breast, upper digestive tract, lung, or ovary. S/P Diagnostic laparoscopy, paracentesis, biopsy peritoneum and omentum (02/01/17) -- -> carcinomatosis. Pathology pending. MD ALLERGY IMMUNOLOGY Oncology/GS following, awaiting biopsy from peritoneum/omentum. - Constipation. Abdomen X-Ray (01/28/17)----> No definite bowel dilatation or free air is seen. Has not had a bowel movement. Refused pericolace - Nausea, vomiting. Tolerating diet - Abdominal pain. Intermittent diffuse abdominal discomfort. Pain management per attending. - DM, HTN, nephropathy, neuropathy, recurrent UTI per primary - Hx cervical cancer, s/p radiation and chemotherapy in 2004. Recommendations: - LELO - Await peritoneal/omentum pathology results - Supportive care - Oncology following - GS following - MD ALLERGY IMMUNOLOGY Oncology consulted - Supportive care - Further recommendations to follow based on results of above - Patient seen and examined by Dr. Pena and myself and this note is written on his behalf Destinee Heard Feb 04, 2017 11:31
[2017-02-04 12:00] VITALS: BP 158/61; PULSE 97; RESP 20; TEMP 97.5; O2SAT 91
[2017-02-04] MEDS: ENOXAPARIN SODIUM 40 MG/0.4 ML SYRINGE SQ SCH (12:19)
[2017-02-04] MEDS: POLYETHYLENE GLYCOL 17 GM PKG PO SCH (12:19)
--- NOTE | 2017-02-04 12:50 | PD.ONC.PN ---
Subjective Subjective Remarks Afebrile overnight. Resting in chair next to bed. Hoping to be able to go home soon. No complaints. Objective Data Date Time Temp Pulse Resp B/P Pulse Ox O2 Delivery O2 Flow Rate FiO2 02/04/17 09:25 95 Nasal Cannula 3.00 02/04/17 08:00 99.1 93 20 126/59 94 02/04/17 00:11 98.9 89 18 118/55 95 02/03/17 20:25 96.9 91 20 102/65 95 02/03/17 19:46 Nasal Cannula 2.00 02/03/17 17:39 93 Nasal Cannula 3.00 02/04/17 02/04/17 02/04/17 07:00 15:00 23:00 Intake Total 480 ml Output Total 600 ml Balance -120 ml Administered Medications Medications (Trade) Dose Ordered Sig/Rigoberto Route PRN Reason Start Time Stop Time Status Last Admin Dose Admin Alprazolam (Xanax) 0.5 mg Q8H PRN PO ANXIETY 01/26/17 16:15 02/01/17 22:23 Brimonidine Tartrate (Alphagan 0.2% Opth Soln) 1 drop BID EACH EYE 01/26/17 21:00 02/04/17 10:24 Glyburide (Diabeta) 5 mg DAILY PO 01/27/17 09:00 Hold 01/29/17 08:54 Insulin Human Isoph/Insulin Regular (NovoLIN 70/30 INJ) 40 units DAILY SQ 01/27/17 09:00 Hold 01/29/17 09:00 Timolol Maleate 1 drop 1 drop BID EACH EYE 01/26/17 21:00 02/04/17 10:24 Ceftriaxone Sodium/Sodium Chloride (Rocephin Inj/NS Inj) 100 ml @ 200 mls/hr Q24H IV 01/29/17 18:00 02/03/17 17:49 Enoxaparin Sodium (Lovenox Inj) 40 mg Q24H SQ 01/29/17 12:00 02/04/17 12:19 Insulin Detemir (Levemir Inj) 10 units Q12HR SQ 01/31/17 21:00 02/04/17 10:20 Acetaminophen/ Hydrocodone Bitart 1 tab 1 tab Q4H PRN PO PAIN SCALE 1 TO 5 02/01/17 15:30 02/04/17 10:21 Sodium Chloride (NS 1000 ml Inj) 1,000 ml @ 100 mls/hr Q10H IV 02/02/17 10:59 02/03/17 19:40 Polyethylene Glycol (Miralax) 17 gm DAILY PO 02/04/17 11:45 02/04/17 12:19 Objective Remarks GENERAL: Middle aged obese female, upright in chair next to bed. SKIN: Warm and dry. HEAD: Normocephalic. EYES: No injection or drainage. NECK: Supple, trachea midline. CARDIOVASCULAR: Regular rate and rhythm RESPIRATORY: Breath sounds equal bilaterally. No accessory muscle use. BREAST: bilateral breasts are pendulous. 1cm bruise to left breast, otherwise no lesion or skin changes noted. no nipple discharge. no mass palpated. no inguinal lymphadenopathy palpated. GASTROINTESTINAL: Abdomen obese, mildly distended, non tender to palpation. EXTREMITIES: No cyanosis NEUROLOGICAL: No obvious focal deficit. Awake, alert, and oriented x3. Assessment/Plan Problem List: (1) Metastatic adenocarcinoma of unknown origin Status: Acute Plan: --She noted increased abdominal girth for last two weeks. --s/p paracentesis with removal 7.1 liters of cloudy yellowish fluid-->Cytology +adenocarcinoma. Hepatitis panel was negative. --CA-125 is slightly elevated at 348 which is nonspecific. --Alpha-fetoprotein, CEA and CA19-9 were all normal. --CT ab/pelvis: no definite mass. --CT chest: no mass --ex lap, 02/01 showed carcinomatosis, pathology pending from biopsies obtained. Assessment 62y/o female with new onset ascites suspicious for malignancy. --history of cervical cancer treated with radiation and chemotherapy in 2003. --Diabetes mellitus. recurrent urinary tract infection. Hypertension --Nephropathy, neuropathy and retinopathy. Right eye blindness Plan 1. consult SECTION HAND HELPER oncology 2. need upper EGD to look for mass, as well-->d/w GI, patient has thus far refused EGD/Cx 3. supportive care Attending Statement The exam, history, and the medical decision-making described in the above note were completed with the assistance of the mid-level provider. I reviewed and agree with the findings presented. I attest that I had a [id number] encounter with the patient on the same day, and personally performed and documented my assessment and findings in the medical record. No new c/o, wants to go home. S/p exp lap which showed carcinomatosis. Ascitic fluid cytology + adenocarcinoma. DDX includes upper GI, breast and ovarian carcinoma. Pt has refused EGD/C-scope. Consult . Extensive discussion with patient. She wants to go home to take care of her affairs before she would consider any treatment. Miriam Sanchez Feb 04, 2017 12:50 Zhen Zepeda MD Feb 04, 2017 16:26
[2017-02-04] MEDS: SODIUM CHLOR 0.9% 1000 ML INJ 1,000 ML IV SCH ×2 (12:59→20:10)
--- NOTE | 2017-02-04 13:06 | HHI.PR ---
Subjective Subjective Notes Up to chair Concerned about paperwork about life insurance AMBROSIO Felipe also in the room Objective Vitals/I&O Vital Signs Date Time Temp Pulse Resp B/P Pulse Ox O2 Delivery O2 Flow Rate FiO2 02/04/17 12:00 97.5 97 20 158/61 91 02/04/17 09:25 Nasal Cannula 3.00 01/31/17 09:[address] abdomen/pelvis- moderate to large amount of ascites without definitive etiology. The umbilical anterior bowel wall hernia containing fat and ascites fluid. Cardiovascular: Regular Lungs: Clear Abdomen: Other (large obese abdomen; lap sites c/d/i--- umbilicus lap site with leaking ascites---wound drainage bag in place ) Extremities: Other (generalized edema ) A/P Assessment and Plan 62 year old female with abdominal pain; ascites s/p paracenteses with 7L removed --concern for malignant ascites; POD3 dx lap; lap bx -Await pathology results -Regular diet -Bowel regimen -Continue Wound Management bag to leaking lap sites -Consult to Dr. Tinoco -PT/OT following Attending Statement The exam, history, and the medical decision-making described in the above note were completed with the assistance of the mid-level provider. I reviewed and agree with the findings presented. I attest that I had a [id number] encounter with the patient on the same day, and personally performed and documented my assessment and findings in the medical record. abdominal exam stable postop, tolerating diet, ok to DC home when pain controlled on oral meds Kalpana Jaquez Feb 04, 2017 13:06 Manuel Peck MD Feb 06, 2017 13:43
[2017-02-04 16:00] VITALS: BP 132/68; PULSE 98; RESP 20; TEMP 98.2; O2SAT 94
[2017-02-04] MEDS: cefTRIAXone INJ 1,000 MG in SODIUM CHLORIDE 0.9% INJ 100 ML IV SCH (18:56)
[2017-02-04] MEDS: ONDANSETRON HCL 4 MG/2 ML VIAL IVP PRN (18:56)
[2017-02-04 20:00] VITALS: BP 149/66; PULSE 99; RESP 20; TEMP 97.6; O2SAT 92
[2017-02-05] VITALS: BP 131/57; PULSE 89; RESP 20; TEMP 98.5; O2SAT 92
[2017-02-05 04:00] VITALS: BP 110/59; PULSE 82; RESP 20; TEMP 98.1; O2SAT 94
[2017-02-05] MEDS: INSULIN ASPART SUPPLEMENTAL SCALE SQ SCH ×4 (04:31→20:46)
[2017-02-05 07:16] LABS: HEMATOCRIT 41.7 % (35.0-46.0); MEAN CELL VOLUME 96.1 FL (80.0-100.0); MEAN CORPUSCULAR HEMOGLOBIN 31.9 PG (27.0-34.0); MEAN CORPUSCULAR HGB CONC 33.2 % (32.0-36.0); PLATELET COUNT 249 TH/MM3 (150-450); RED BLOOD COUNT 4.34 MIL/MM3 (4.00-5.30); RED CELL DISTRIBUTION WIDTH 12.5 % (11.6-17.2); REVIEW FLAG FINAL; WHITE BLOOD COUNT 18.6 TH/MM3 (4.0-11.0)
[2017-02-05 07:52] LABS: BICARBONATE 32.6 MEQ/L (21.0-32.0); POTASSIUM 4.8 MEQ/L (3.5-5.1)
[2017-02-05 08:00] VITALS: BP 117/58; PULSE 84; RESP 20; TEMP 96.4; O2SAT 94
[2017-02-05] MEDS: DOCUSATE SODIUM 50 MG/SENNA 8.6 MG TAB PO SCH ×2 (08:39→20:38)
[2017-02-05] MEDS: POLYETHYLENE GLYCOL 17 GM PKG PO SCH (08:40)
[2017-02-05] MEDS: SODIUM CHLOR 0.9% 1000 ML INJ 1,000 ML IV SCH ×2 (08:40→16:53)
[2017-02-05] MEDS: SODIUM CHLORIDE 0.9% FLUSH 10 ML FLUSH IV FLUSH SCH ×2 (08:40→20:30)
[2017-02-05] MEDS: BRIMONIDINE TARTRATE 0.2% OPHT SOLN 5 ML BTL EACH EYE SCH ×2 (08:41→20:30)
[2017-02-05] MEDS: TIMOLOL MALEATE 0.5% OPHT SOLN 5 ML BTL EACH EYE SCH ×2 (08:42→20:30)
[2017-02-05] MEDS: NYSTATIN 100,000 U/GM PWD 15 GM BTL TOPICAL SCH ×2 (08:42→20:44)
[2017-02-05] MEDS: CARVEDILOL 12.5 MG TAB PO SCH ×2 (08:44→20:30)
[2017-02-05] MEDS: INSULIN DETEMIR 100 UNITS/ML VIAL SQ SCH ×2 (08:58→20:46)
--- NOTE | 2017-02-05 09:26 | HHI.PR ---
Subjective Remarks Cytology shows cells that appear malignant with suspicion of adenoma. Physical therapy has been started and patient is tolerating this well thus far. She may be stable for discharge in 1-2 days if ambulation improves. Objective Vital Signs Date Time Temp Pulse Resp B/P Pulse Ox O2 Delivery O2 Flow Rate FiO2 02/05/17 08:00 96.4 84 20 117/58 94 02/05/17 04:00 98.1 82 20 110/59 94 02/05/17 00:00 98.5 89 20 131/57 92 02/04/17 20:16 Nasal Cannula 3.00 02/04/17 20:00 97.6 99 20 149/66 92 02/04/17 20:00 94 Nasal Cannula 2.00 02/04/17 16:00 98.2 98 20 132/68 94 02/04/17 12:00 97.5 97 20 158/61 91 02/04/17 09:25 95 Nasal Cannula 3.00 I/O 02/04/17 02/04/17 02/04/17 02/05/17 02/05/17 02/05/17 07:00 15:00 23:00 07:00 15:00 23:00 Intake Total 480 ml 360 ml 501 ml Output Total 600 ml 1550 ml Balance -120 ml 360 ml -1049 ml Intake Oral 480 ml 360 ml 240 ml IV Total 261 ml Output Urine Total 400 ml Drainage Total 600 ml 1150 ml Bladder Scan Volume Amount 118 ml # Voids 2 1 Result Diagram: 02/05/17 0645 02/05/17 0645 Objective Remarks GENERAL: NAD, A&Ox3, severe obesity HEAD: Normocephalic. NECK: Supple, trachea midline. No lymphadenopathy. EYES: No scleral icterus. No injection or drainage. CARDIOVASCULAR: Regular rate and rhythm without murmurs, gallops, or rubs. RESPIRATORY: Breath sounds equal bilaterally. No accessory muscle use. GASTROINTESTINAL: Abdomen soft, non-tender, nondistended. MUSCULOSKELETAL: No cyanosis, or edema. SKIN: Warm and dry. NEURO: No focal neurological deficitis. A/P Problem List: (1) Ascites ICD Code: R18.8 (2) Hypoxia ICD Code: R09.02 (3) Abdominal distention ICD Code: R14.0 (4) Umbilical hernia ICD Code: K42.9 Assessment and Plan Assessment and Plan 62-year-old female admitted with hypoxia and abdominal distention related to ascites. Suspected malignant adenoma. Continue physical therapy. Patient will need improved ambulation and she cannot use a walker due to missing right arm. She wishes discharged to home. Ascites cytology from last paracentesis is positive for malignancy with suspicion for adenoma History of cervical cancer in the past Gynecology following Surgery following GI following Oncology following Hypoxia Improving Likely a combination of obesity and ascites Continue oxygen as needed Status post drainage of ascites Wean oxygen as tolerated Urinary tract infection Resolved Treatment completed ARF (acute renal failure) Resolved Chronic kidney disease may be present Follow renal function Diabetes mellitus type 2 Follow blood sugars Insulin sliding scale Diabetic diet Levemir 10 mg SQ BID HTN (hypertension) Follow blood pressures Currently stable No change in present treatment Umbilical hernia Acute phase is likely related to ascites Follow clinically for now She is not a good surgical candidate Constipation As needed laxatives Global weakness Continue physical therapy Discharge plan: Physical therapy ongoing, [facility] facility versus home health care discharge. Problem Qualifiers (1) Ascites: Qualified Code: R18.0 - Malignant ascites Juan Gallegos MD Feb 05, 2017 09:26
--- NOTE | 2017-02-05 10:03 | PD.ONC.PN ---
Subjective Subjective Remarks Afebrile overnight. Patient resting in bed. Wants to go home. Unsure if she would want treatment no matter what the ultimate diagnosis is. Objective Data Date Time Temp Pulse Resp B/P Pulse Ox O2 Delivery O2 Flow Rate FiO2 02/05/17 08:00 96.4 84 20 117/58 94 02/05/17 04:00 98.1 82 20 110/59 94 02/05/17 00:00 98.5 89 20 131/57 92 02/04/17 20:16 Nasal Cannula 3.00 02/04/17 20:00 97.6 99 20 149/66 92 02/04/17 20:00 94 Nasal Cannula 2.00 02/04/17 16:00 98.2 98 20 132/68 94 02/04/17 12:00 97.5 97 20 158/61 91 Result Diagram: 02/05/17 0645 02/05/17 0645 Laboratory Results Laboratory Tests Test 02/05/17 06:45 White Blood Count 18.6 TH/MM3 Red Blood Count 4.34 MIL/MM3 Hemoglobin 13.9 GM/DL Hematocrit 41.7 % Mean Corpuscular Volume 96.1 FL Mean Corpuscular Hemoglobin 31.9 PG Mean Corpuscular Hemoglobin 33.2 % Concent Red Cell Distribution Width 12.5 % Platelet Count 249 TH/MM3 Mean Platelet Volume 9.6 FL Sodium Level 131 MEQ/L Potassium Level 4.8 MEQ/L Chloride Level 93 MEQ/L Carbon Dioxide Level 32.6 MEQ/L Anion Gap 5 MEQ/L Blood Urea Nitrogen 27 MG/DL Creatinine 1.10 MG/DL Estimat Glomerular Filtration 50 ML/MIN Rate Random Glucose 179 MG/DL Calcium Level 8.5 MG/DL Administered Medications Medications (Trade) Dose Ordered Sig/Rigoberto Route PRN Reason Start Time Stop Time Status Last Admin Dose Admin Alprazolam (Xanax) 0.5 mg Q8H PRN PO ANXIETY 01/26/17 16:15 02/01/17 22:23 Brimonidine Tartrate (Alphagan 0.2% Opth Soln) 1 drop BID EACH EYE 01/26/17 21:00 02/05/17 08:41 Glyburide (Diabeta) 5 mg DAILY PO 01/27/17 09:00 Hold 01/29/17 08:54 Insulin Human Isoph/Insulin Regular (NovoLIN 70/30 INJ) 40 units DAILY SQ 01/27/17 09:00 Hold 01/29/17 09:00 Timolol Maleate 1 drop 1 drop BID EACH EYE 01/26/17 21:00 02/05/17 08:42 Ceftriaxone Sodium/Sodium Chloride (Rocephin Inj/NS Inj) 100 ml @ 200 mls/hr Q24H IV 01/29/17 18:00 02/04/17 18:56 Enoxaparin Sodium (Lovenox Inj) 40 mg Q24H SQ 01/29/17 12:00 02/04/17 12:19 Insulin Detemir (Levemir Inj) 10 units Q12HR SQ 01/31/17 21:00 02/04/17 21:54 Acetaminophen/ Hydrocodone Bitart 1 tab 1 tab Q4H PRN PO PAIN SCALE 1 TO 5 02/01/17 15:30 02/04/17 10:21 Sodium Chloride (NS 1000 ml Inj) 1,000 ml @ 100 mls/hr Q10H IV 02/02/17 10:59 02/05/17 08:40 Sodium Chloride (NS Flush) 2 ml BID IV FLUSH 02/02/17 21:00 02/05/17 08:40 Ondansetron HCl (Zofran Inj) 4 mg Q6H PRN IVP NAUSEA OR VOMITING 02/02/17 11:00 02/04/17 18:56 Senna/Docusate Sodium (Astrid-Colace) 1 tab BID PO 02/02/17 21:00 02/05/17 08:39 Polyethylene Glycol (Miralax) 17 gm DAILY PO 02/04/17 11:45 02/05/17 08:40 Objective Remarks GENERAL: Middle aged obese female, supine in bed in [facility]. SKIN: Warm and dry. HEAD: Normocephalic. EYES: No injection or drainage. NECK: Supple, trachea midline. CARDIOVASCULAR: Regular rate and rhythm RESPIRATORY: Breath sounds equal bilaterally. No accessory muscle use. GASTROINTESTINAL: Abdomen obese, distended. non tender to palpation. EXTREMITIES: No cyanosis NEUROLOGICAL: awake and alert, normal speech. moving all extremities. Assessment/Plan Problem List: (1) Metastatic adenocarcinoma of unknown origin Status: Acute Plan: --s/p paracentesis with removal 7.1 liters of cloudy yellowish fluid--> Cytology +adenocarcinoma. Hepatitis panel was negative. --CA-125 is slightly elevated at 348 which is nonspecific. --Alpha-fetoprotein, CEA and CA19-9 were all normal. --CT ab/pelvis: no definite mass. --CT chest: no mass --ex lap, 02/01 showed carcinomatosis, pathology pending from biopsies obtained. Assessment 62y/o female with new onset ascites suspicious for malignancy. --history of cervical cancer treated with radiation and chemotherapy in 2003. --Diabetes mellitus. recurrent urinary tract infection. Hypertension --Nephropathy, neuropathy and retinopathy. Right eye blindness Plan 1. consult palliative care to help establish goals--patient may just want to enroll is hospice. she states she is not sure she would want any treatment 2. supportive care Attending Statement The exam, history, and the medical decision-making described in the above note were completed with the assistance of the mid-level provider. I reviewed and agree with the findings presented. I attest that I had a [id number] encounter with the patient on the same day, and personally performed and documented my assessment and findings in the medical record. Abdominal pain is about the same, still draining ascitic fluid. Pathology from peritoneal biopsy is still pending. Ascitic fluid cytology +adenocarcinoma. I told pt she has malignant ascites and widespread carcinomatosis. Treatment is likely going to be palliative chemotherapy. Patient has no family members in town and no strong support system. She stated that she may not want chemotherapy if it is not curable. She is not interested in prolonging the inevitable. Will consult palliative care meds to help her clarify the goal. Hopefully the final tissue path could narrow down the site of primary tumor and we could provide her with more info regarding prognosis and treatment option. Miriam Sanchez Feb 05, 2017 10:03 Zhen Zepeda MD Feb 05, 2017 17:28
[2017-02-05] MEDS: ACETAMINOPHEN/HYDROcodone 325 MG/5 MG TAB PO PRN (10:23)
--- NOTE | 2017-02-05 11:19 | PD.CONS ---
Consult Service Palliative Care . Consult Requested By Concha Sanchez / Dr. Zepeda . Primary Care Physician Erin Frazier MD . Reason for Consultation a. To assist with evaluation and management of symptoms including: abdominal pain; constipation b. To assist medical decision maker(s) with: better understanding of current medical conditions; weighing benefits/burdens of medical treatment options; making medical treatment decisions. . HPI History of Present Illness Ms. Zimmer is a 62 y/o female with a known medical history including cervical cancer; chronic bronchitis; diabetes mellitus; hypertension; sleep apnea; who first presented to the [facility] Emergency Department on 01/26/17 complaining primarily of "fluid retention," which she indicated was causing some abdominal swelling and shortness of breath over the last 2-3 days. She was also suspicious that she had a urinary tract infection -- her urine had been foul-smelling. She reported that over the prior month she had received 2 separate empiric antibiotic regimens for probable urinary tract infection from her primary care doctor and that neither of these had appeared to resolve her symptoms. She denied nausea, vomiting, or constipation. No history of alcohol abuse. She denied vaginal bleeding, melena, hematochezia. She denied fevers or chills. She denied any exacerbating or relieving factors at the time. Vital signs in the emergency department showed a temperature 98.2; pulse 84; respiratory rate 20; blood pressure 146/69; pulse oximetry 88% on O2 via nasal cannula at 2 L a minute Examination by the emergency upholstery department supervisor noted the following: Patient is markedly obese but in no acute distress. There were skin changes compatible with peripheral vascular disease. Abdomen was soft and nontender. There was a deformed right hand. The remainder of the exam was unremarkable. Initial diagnostic testing revealed the following: * CBC revealed WBC 12.1; hemoglobin 14.6; platelet count 320 * Coagulation profile showed a PT of 10.6; INR 1.0; PTT 26.1 * Basic chemistry profile showed sodium 140; potassium 3.7; chloride 101; CO2 30.4; anion gap 9; BUN 27; creatinine 1.7; GFR 30; glucose 166; calcium 8.9; magnesium 2.2 * Liver function studies show total bilirubin 0.3; AST 21; ALT 18; alkaline phosphatase 71; LDH 256; total protein 7.0; albumin 2.5 * Cardiac serology showed total CK 172; CK-MB 3.2; troponin less than 0.02; B- type natriuretic peptide 60 * Urinalysis showed 30 mg of protein; trace ketones; small leukocyte esterase; clumps of white blood cells; occasional bacteria. * EKG revealed a sinus rhythm with no ST segment changes * CT of the abdomen/pelvis showed moderate to large amounts of ascites with no definitive etiology on CT. There was appear he umbilical anterior bowel wall hernia containing fat and ascitic fluid. Evaluation of the mesentery and liver were limited due to lack of IV contrast. * Chest x-ray showed some atelectasis at the bases. No acute findings otherwise. As, in addition to the apparent urinary tract infection, the patient was also hypoxic with apparent ascites, she was admitted to the hospitalist service. The patient was placed on empiric Rocephin for her urinary tract infection. An echocardiogram was ordered to rule out congestive heart failure. An ultrasound was ordered for diagnostic and therapeutic paracentesis. Echocardiogram showed no significant abnormalities. The left ventricle was not well visualized. Ejection fraction was estimated at 50%. Paracentesis withdrew 7100 cc of cloudy yellow fluid. Cytology of the ascitic fluid ultimately came back positive for malignant cells. Staining pattern was most consistent with adenocarcinoma of the breast, upper digestive tract, lung, or ovary. On 02/01/17 the patient went to diagnostic laparoscopy; paracentesis; and biopsy of the peritoneum and omentum by Dr. Calvillo. That pathology remains pending. Nursing pain level scores have generally been averaging between 2 and 4. She has been having primarily merrily abdominal pain and using approximately 1 tab of nor cool 5-325 per day. She has an order for intravenous morphine that has not been used. The patient's urine culture ultimately grew out Escherichia coli that was gar sensitive. Peritoneal fluid cultures were negative. White blood cell count has increased to 18.6. Hemoglobin has remained stable. Renal function has improved. Tumor markers showed an elevated CEA 125 at 348.8 Patient has stated to the medical team that she may not want aggressive cancer directed treatments regardless of the pathology. For that reason palliative care was consulted. . Function/Cognitive Trajectory Patient is morbidly obese, blind in the right eye, with minimally functional RUE (congenital phocomelia) but managed to care for herself after her . She would take [employer] to get groceries, manage all her ADLs, and care for her home. Ambulated in her mobile home with a quad cane. Able to navigate 3 steps in her mobile home. Up until June 2016 she would do water aerobics for about 2 hours/day. In June she had a hypoglycemic event while in the pool (BS down to 30) and she has not been back in the pool since. She felt she was maintaining her functional status up until about a week prior to admission when she began retaining fluid. It became bad enough that she couldn't do dishes and she could not lean up agains the sink. . Review of Systems Constitutional: COMPLAINS OF: Weight gain (with fluid rertention), Pain ( abdominal pain with ascites), DENIES: Diaphoretic episodes, Fatigue, Fever, Weight loss, Dizziness Endocrine: COMPLAINS OF: Polyuria, DENIES: Heat/cold intolerance, Polyphagia Eyes: COMPLAINS OF: Vision loss (blind in right eye), DENIES: Blurred vision, Diplopia, Eye pain, Double Vision Ears, nose, mouth, throat: DENIES: Tinnitus, Hearing loss, Oral lesions, Throat pain, Hoarseness, Epistaxis, Toothache Respiratory: COMPLAINS OF: Sputum production, Shortness of breath, DENIES: Apneas, Snoring, Wheezing, Hemoptysis Cardiovascular: COMPLAINS OF: Dyspnea on Exertion, Lower Extremity Edema, DENIES: Chest pain, Palpitations, Syncope Gastrointestinal: COMPLAINS OF: Abdominal pain, DENIES: Black stools, Bloody stools, Constipation, Diarrhea, Nausea, Vomiting, Difficulty Swallowing, Anorexia, Vomiting blood Genitourinary: COMPLAINS OF: Urinary frequency, Urinary incontinence, DENIES: Urgency, Hematuria, Dysuria, Nocturia Musculoskeletal: DENIES: Joint pain, Muscle aches, Back pain, Neck pain Integumentary: DENIES: Pruritus Hematologic/Lymphatics: DENIES: Bruising Immunologic/Allergic: DENIES: Eczema Neurologic: DENIES: Headache, Localized weakness, Paresthesias, Seizures, Tremor, Poor Balance Psychiatric: COMPLAINS OF: Anxiety, DENIES: Confusion, Depression, Hallucinations Past Family Social History Coded Allergies: Penicillin (Verified Allergy, Severe, SWELLING, 01/26/17) Past Medical History Diabetes Hypertension Diabetic nephropathy and neuropathy and retinopathy Cervical cancer -- treated with radiation and chemotherapy in 2003. 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 Congenital RUE phocomelia . Past Surgical History Cervical cone biopsy Hysterectomy Port placement and removal Cataract surgery Laparoscopic Cholecystectomy Surgical I&D and grafting of gangrenous wound on LLE. . Reported Medications Prehospital medications included the following: Aspirin 81 Mg Chew 81 Mg CHEW DAILY Xanax (Alprazolam) 0.5 Mg Tab 0.5 Mg PO Q8H PRN Novolin 70/30 Inj (Insulin Human Isoph/Insulin Regular) 1,000 Units/10 Ml Inj 40 Unit DAILY Ocuvite (Multiple Vitamins W/ Minerals) 1 Tab 1 Tab PO DAILY Glyburide 5 Mg Tab 5 Mg PO DAILY Triamterene-Hydrochlorothiazide 75-50 Mg Tab 1 Tab PO DAILY Captopril 50 Mg Tab 50 Mg PO TIDAC Magnesium Oxide 500 Mg Tab 1,000 Mg PO DAILY Brimonidine Opth Drops (Brimonidine Tartrate) 0.2% Soln 1 Drop EACH EYE BID Timolol Opth Drops 0.5 % Soln 1 Drop EACH EYE BID . Current Medications Medications (Trade) Dose Ordered Sig/Rigoberto Route Start Time Stop Time Status Last Admin (D50w (Vial) Inj) 50 ml UNSCH PRN IV 01/26/17 16:15 (Glucagon Inj) 1 mg UNSCH PRN OTHER 01/26/17 16:15 (Xanax) 0.5 mg Q8H PRN PO 01/26/17 16:15 02/01/17 22:23 (Alphagan 0.2% Opth Soln) 1 drop BID EACH EYE 01/26/17 21:00 02/05/17 08:41 (Diabeta) 5 mg DAILY PO 01/27/17 09:00 Hold 01/29/17 08:54 (NovoLIN 70/30 INJ) 40 units DAILY SQ 01/27/17 09:00 Hold 01/29/17 09:00 (Timoptic 0.5% Opth Soln) 1 drop BID EACH EYE 01/26/17 21:00 02/05/17 08:42 Carvedilol 12.5 mg 12.5 mg Q12HR PO 01/28/17 13:52 (Rocephin Inj/NS Inj) 100 ml @ 200 mls/hr Q24H IV 01/29/17 18:00 02/04/17 18:56 (Lovenox Inj) 40 mg Q24H SQ 01/29/17 12:00 02/04/17 12:19 (Compazine Inj) 10 mg Q8H PRN IV PUSH 01/30/17 11:00 (Levemir Inj) 10 units Q12HR SQ 01/31/17 21:00 02/04/17 21:54 (Mycostatin Powder) 1 applic Q12HR TOPICAL 02/01/17 21:00 (Ramsey 5-325 Mg) 1 tab Q4H PRN PO 02/01/17 15:30 02/05/17 10:23 Morphine Sulfate 4 mg 4 mg Q3H PRN IV PUSH 02/01/17 15:30 (NS 1000 ml Inj) 1,000 ml @ 100 mls/hr Q10H IV 02/02/17 10:59 02/05/17 08:40 (NS Flush) 2 ml UNSCH PRN IV FLUSH 02/02/17 11:00 (NS Flush) 2 ml BID IV FLUSH 02/02/17 21:00 02/05/17 08:40 (Zofran Inj) 4 mg Q6H PRN IVP 02/02/17 11:00 02/04/17 18:56 (Astrid-Colace) 1 tab BID PO 02/02/17 21:00 02/05/17 08:39 (Milk Of Magnesia Liq) 30 ml Q12H PRN PO 02/02/17 11:00 (Senokot) 17.2 mg Q12H PRN PO 02/02/17 11:00 (Dulcolax Supp) 10 mg DAILY PRN RECTAL 02/02/17 11:00 (Lactulose Liq) 30 ml DAILY PRN PO 02/02/17 11:00 (Chloraseptic [place]) 2 spray Q2H PRN OROPHARYNG 02/02/17 16:30 (Miralax) 17 gm DAILY PO 02/04/17 11:45 02/05/17 08:40 . Family History Parents had diabetes. Mother and father of complications of stroke. A sister of pancreatic cancer Her only child (son) was killed in a hit-and-run motor vehicle accident . Substance Use Tobacco: Quit smoking approximately 25 years ago. Alcohol: No recent alcohol use Prescription med abuse: No known prescription drug abuse Illicits: No known use of illicits . Psychosocial History Originally from [place]. Moved to [place] with her around 1995. College-educated. Never employed outside the home but helped raise two foster children * She cared for Wagner for 7 years and still keeps in touch with him * She care for Damian for 3 years but does not keep in touch. Considers herself a bible scholar. x 2. Had one son with first . Son in a hit-and-run MVA in 1974 to 2nd for 16 years. He under hospice care in 2007. Has lived alone since then. One sister of pancreatic cancer. Brother (Derian) lives in [place]. She remains in touch with him. Sister (Mayra) lives in [place]. She does not remain in touch. . Spiritual/Cultural Factors Roman Catholic. Well versed in the bible. [employer] has played a major role in her life. No longer affiliated with any uatsdin and no uatsdin members visit her. . Living Will: Never completed Durable Power of Stamp Machine Servicer: Never completed Date completed: Refuses to consider completion of advance directives at this time. . Health Care Surrogate(s): No written designation of health care surrogate. . Documented care wishes: No written documentation of health care goals/preferences. . Today's verbally stated goals: Does not want to discuss goals of medical treatment until she can "complete her affairs" -- e.g. arrangements, insurance policy beneficiary, will, etc. . Family/friends goals: No involvement of family/friends. . Ethical and Legal Issues Patient is capacitated to make her own health care decisions. Should she become incapacitated and has not designated a surrogate, proxy health care decision making would fall equally to her two surviving siblings. . Physical Exam Vital Signs Date Time Temp Pulse Resp B/P Pulse Ox O2 Delivery O2 Flow Rate FiO2 02/05/17 08:00 96.4 84 20 117/58 94 02/05/17 04:00 98.1 82 20 110/59 94 02/05/17 00:00 98.5 89 20 131/57 92 02/04/17 20:16 Nasal Cannula 3.00 02/04/17 20:00 97.6 99 20 149/66 92 02/04/17 20:00 94 Nasal Cannula 2.00 02/04/17 16:00 98.2 98 20 132/68 94 02/04/17 12:00 97.5 97 20 158/61 91 . 02/04/17 02/05/17 19:00 07:00 Intake Total 360 ml 501 ml Output Total 400 ml 1150 ml Balance -40 ml -649 ml Intake Oral 360 ml 240 ml IV Total 261 ml Output Urine Total 400 ml Drainage Total 1150 ml Bladder Scan Volume Amount 118 ml # Voids 1 . Exam CONSTITUTIONAL/GENERAL: Awake, alert, conversant, morbidly obese, up in chair, no apparent distress. TUBES/LINES/DRAINS: Surgical wound drain. SKIN: No jaundice. Venous stasis skin changes on lower extremities. No wounds seen anteriorly. Skin temperature appropriate. Not diaphoretic. HEAD: Atraumatic. Normocephalic. EYES: Right eye with clouded cornea -- deviates to right. Left pupil round and reactive. Extraocular motions intact. No scleral icterus. No injection or drainage. Fundi not examined. ENT: Hearing grossly normal. Nose without bleeding or purulent drainage. Throat without visible erythema, exudates, masses, or lesions though difficult to evaluate due to level of obesity. NECK: Trachea midline. Supple, nontender. No palpable thyroid enlargement or nodularity. CARDIOVASCULAR: Regular rate and rhythm without murmurs, gallops, or rubs. No JVD. Peripheral pulses symmetric. RESPIRATORY/CHEST: Symmetric, unlabored respirations. Clear to auscultation. Breath sounds equal bilaterally but diminished at bases. No wheezes, rales, or rhonchi. GASTROINTESTINAL: Abdomen obese, soft, non-tender, nondistended. Surgical wound drain. No hepato-splenomegaly, or palpable masses though difficult to evaluate due to obesity. No guarding. Bowel sounds present. GENITOURINARY: Without palpable bladder distension. MUSCULOSKELETAL: Congenital phocomelia deformity right upper extremity. Extremities without clubbing. Venous stasis changes both lower extremities. No joint tenderness or effusion noted. No calf tenderness. LYMPHATICS: No palpable cervical or supraclavicular adenopathy. NEUROLOGICAL: Awake and alert. Motor and sensory grossly within normal limits. Follows commands. Cognitively sharp. Moves all extremities. PSYCHIATRIC: No obvious anxiety/depression. No apparent hallucinations or other psychotic thought process. . Diagnostic Tests Laboratory Laboratory Tests Test 02/05/17 06:45 White Blood Count 18.6 TH/MM3 (4.0-11.0) Red Blood Count 4.34 MIL/MM3 (4.00-5.30) Hemoglobin 13.9 GM/DL (11.6-15.3) Hematocrit 41.7 % (35.0-46.0) Mean Corpuscular Volume 96.1 FL (80.0-100.0) Mean Corpuscular Hemoglobin 31.9 PG (27.0-34.0) Mean Corpuscular Hemoglobin 33.2 % Concent (32.0-36.0) Red Cell Distribution Width 12.5 % (11.6-17.2) Platelet Count 249 TH/MM3 (150-450) Mean Platelet Volume 9.6 FL (7.0-11.0) Sodium Level 131 MEQ/L (136-145) Potassium Level 4.8 MEQ/L (3.5-5.1) Chloride Level 93 MEQ/L (98-107) Carbon Dioxide Level 32.6 MEQ/L (21.0-32.0) Anion Gap 5 MEQ/L (5-15) Blood Urea Nitrogen 27 MG/DL (7-18) Creatinine 1.10 MG/DL (0.50-1.00) Estimat Glomerular Filtration 50 ML/MIN (>89) Rate Random Glucose 179 MG/DL (74-106) Calcium Level 8.5 MG/DL (8.5-10.1) Peritoneal fluid path + for malignant cells. . Result Diagram: 02/05/1745 02/05/1745 Microbiology * Urine CX 01/26/17 --> gar-sensitive E coli * Peritoneal fluid cx 01/27/17 --> no growth. . Imaging Last Impressions Chest CT 01/31/17 0000 Signed Impressions: Service Date/Time: January 10:06 - CONCLUSION: 1. No discrete mass lesion identified. 2. Minimal bibasilar effusions with atelectatic changes in the lung bases. 3. No significant adenopathy. Juan Pleitez MD Abdomen X-Ray 01/28/17 0600 Signed Impressions: Service Date/Time: Saturday, January 28, 2017 15:13 - CONCLUSION: No definite bowel dilatation or free air is seen. Sriram Sunshine MD Cyst Biopsy Asp-Paracentesis US 01/27/17 0000 Signed Impressions: Service Date/Time: Friday, January 27, 2017 11:00 - CONCLUSION: Uncomplicated ultrasound guided paracentesis. Juan Pleitez MD Abdomen/Pelvis CT 01/26/17 1349 Signed Impressions: Service Date/Time: Thursday, January 26, 2017 14:38 - CONCLUSION: 1. Moderate to large amount of ascites without definitive etiology identified on CT. No definitive mesenteric mass or hepatic volume loss. Evaluation of the mesentery and liver are however limited due to lack of IV contrast. 2. Periumbilical anterior bowel wall hernia containing fat and ascites fluid. Myke Kendall MD ADDENDUM: Reexamination of the pelvic CT exam does demonstrate a small uterus which appears unremarkable by CT. The uterus was originally reported as surgically absent. Myke Kendall MD Chest X-Ray 01/26/17 1155 Signed Impressions: Service Date/Time: Thursday, January 26, 2017 12:13 - CONCLUSION: Underinflated examination with atelectasis at the bases. No acute finding is identified. Sriram Paul MD Renal Ultrasound 01/26/17 0000 Signed Impressions: Service Date/Time: Thursday, January 26, 2017 17:59 - CONCLUSION: Ultrasound appearance of the kidneys and urinary bladder within normal limits. Sriram Kaufman MD . Procedures * Paracentesis * 02/01/17-- diagnostic laparoscopy; paracentesis; and biopsy of the peritoneum and omentum Other * Peritoneal fluid path --> positive for malignant cells * Echocardiogram showed no significant abnormalities. The left ventricle was not well visualized. Ejection fraction was estimated at 50%. . Patient/Family Conference Present at Family Conference: Patient only. . Family Conference Time (mins): 55 Family Conference Location: Bedside Issues Discussed: * Palliative care role, purpose, approach * Additional medical, psychosocial, and spiritual history * Patients general health, functional status, and cognitive changes in the months leading up to the current hospitalization * Patient understanding of the current medical problems * Patient understanding of prognosis * Patients goals of Medical treatment. * Current medical treatment options and benefits/burdens of those options * Questions answered to the best of my ability * Palliative care contact information provided . Assessment and Plan Disease Oriented Problem List: (1) Metastatic adenocarcinoma of unknown origin Comment: Abdominal carcinomatosis is present. Ascitis fluid positive for malignant cells. . (2) Abdominal distention Comment: Likely caused by ascites. . (3) Ascites (4) Urinary tract infection Comment: Culture positive for gar-sensitive E coli. ./ (5) DM2 (diabetes mellitus, type 2) (6) ARF (acute renal failure) Comment: Improved with hydration. . (7) Umbilical hernia (8) HTN (hypertension) (9) Hypoxia Symptom Scale: (1) Pain 0-10 Scale: 4 Comment: Pain has been mostly abdominal (most likely from ascitic distension. Improved with paracentesis. Controlled with intermittent Ramsey 3-325 . (2) Constipation 0-10 Scale: Unable to quantify Comment: No BM since 01/31. Plenty of PRN meds already ordered to address this. Will need to see if this might be from the disease or meds or other. . Pertinent Non-Medical Issues Psychosocial: Socially isolated. Lives alone. Only has some casual friends locally. . No surviving children (son in "hit and run" accident in 1974). Surviving sister she does not speak with in [place]. Surviving brother she does stay in touch with in [place]. Spiritual: Roman Catholic. Well versed in the bible. Used to be very active in uatsdin but no longer. Has not uatsdin people who visit her. Legal: Refused to consider writing advance directives at this time. Ethical issues impacting care: Capacitated to make her own health care decisions. Should she become incapacitated, proxy decision making would fall equally to her brother and sister. . Important Contacts Lolis Aldana (friend) [phone] . Prognosis Prognosis remains uncertain without knowing origin of metastatic disease and likelihood of response to anti-cancer treatments. Should patient choose to forego further cancer directed treatments or no good options are available, life expectancy is probably in the order of weeks to months and she would be a candidate for hospice. . Code Status: Full Code Plan == Code Status: Full Code == Decision maker: Patient is capacitated to make her own health care decisions. She refused to consider delegating anyone at this time to serve as a health care surrogate should she become incapacitated. Under [place] statutes, her surviving brother and sister would become co-proxies if she does not select a surrogate. == Goals of medical treatment: Patient is focused on taking care of several financial affairs before she gives any consideration to treatment options. She wants to make her own arrangements, complete a will , assign a beneficiary for her life insurance policy, etc. Once that is accomplished, she is open to hearing about the benefits/burdens of treatment options and deciding whether or not she wants active treatments. She is not interested in hospice at this time. == Pain: Her only pre-hospital pain syndrome was from her abdominal distension and ascites. This has mostly resolved with paracentesis and the drain. She is using about 1 Ramsey 3-325 daily which appears to be working. There is an order available for IV morphine if needed which she has not used. Patient says that morphine disagrees with her and does not want to use it. Recommend that it be discontinued. No further recommendations at this time. == Constipation: Last bowel movement was 01/31/17 per nursing noted. Patient has orders for PRN astrid-colace; miralax; milk of magnesia; senna; bisacodyl suppository; and lactulose. She received the miralaz and Astrid-colace today. Will await results. == Disposition: Patient wants to go home, but she lives alone, has no local family, and has no dependable friends. Her PT reports suggests she is having difficulty standing at this time. She does not want to go back to [place] where she does have some family. It's hard for me to imagine her caring for herself in her current condition. She will probably require placement, but based on my conversation, she may refuse placement until she is able to return home, go through her paperwork, and get her affairs in order. I have asked the palliative care social to see if she can assist the patient with any of these issues. Since she does not have a local support system, she will probably need placement just to be able to receive chemo should she choose that route. If we can find a way to assist her with completing her affairs we can address these other issues. == Will continue to discuss the importance of designating a health care surrogate as under [place] law , her sister, who she does not even speak with, will have equal decision making authority as her brother should she become incapacitated. == Palliative care will continue to follow to assist with symptom management and to further clarify goals of medical treatment as the clinical course evolves. . Time Spent Total Floor Time (mins): 90 (Total floor time included chart review, patient exam, collaboration with primary nurse, and above referenced bedside discussion with patient. ) Face to Face Time (mins): 60 >50% Counseling/Coord of Care: Yes Thank you for the opportunity to participate in the care of Ms. Zimmer. . . Attestation To help prompt me to consider important information that might be impacting today's encounter and assessment, information from prior notes written by myself or my colleagues may have been "brought forward" into today's note. My signature on this note, however, is an attestation that I personally performed the exam, history, and/or decision-making noted today, and, unless otherwise indicated, the interactions with patient, family, and staff as well as the review of records all occurred today. I also attest that the listed assessment and stated plan reflect my best clinical judgment today based on the combination of historical information, prior notes, and today's exam/ interactions. When time spent is documented, it refers only to time spent today by the signer, or if indicated, combined time spent today by collaborating physician/nurse practitioner. . Yomi Lipscomb MD Feb 05, 2017 11:19
[2017-02-05] MEDS: ENOXAPARIN SODIUM 40 MG/0.4 ML SYRINGE SQ SCH (11:49)
[2017-02-05 12:00] VITALS: BP 114/58; PULSE 86; RESP 20; TEMP 96.6; O2SAT 95
--- NOTE | 2017-02-05 13:09 | MB ---
cc: GREGORY CALVILLO M.D., AMMAR MILLER, DANIEL M.D. MOLPUS, KELLY L. MD CHEW, BOON Y. M.D. 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 This patient is seen her findings are reviewed. She is evaluated by me and examined by me in conjunction with our nurse practitioner (mariano Grant) I agree with her findings, assessment, plan of care. 62-year-old female initially presented to emergency room in [place], subsequently transferred to [facility] included in evaluation of her abdominal pain and distension was that of urinary tract infection, extensive ascites. She is status post paracentesis with over 7 liters of cloudy fluid removed which has subsequently shown to be positive for adenocarcinoma. She had an umbilical hernia that seems chronic in nature. Dr. Calvillo took her for laparoscopic evaluation and biopsies. He obtain biopsies from the peritoneum and omentum. The pathology sign out is still pending at the time of this dictation. OPERATIVE FINDINGS Are that of extensive carcinomatous implants on the visceral on parietal surfaces throughout the peritoneal cavity. No overt identifiable mass effect was previously detected on CAT scan but clearly there is extensive diffuse disease throughout the peritoneal cavity. A resolution of imaging somewhat diminished due to a large volume of ascites and body habitus. Remote history is that she had cervical cancer, apparently treated with radiation chemotherapy. The uterus and cervix appear to be left in situ. She cannot provide good historical information regarding any details beyond that. Statistically most cervical cancers or squamous cell carcinoma, perhaps 15% are adenocarcinomas. It would be improbable but not impossible that this could be recurrence of her treatment approximately 12-13 years ago. However, the possibility of a new problem, must be considered. She is seen now in consultation for further evaluation recommendations regarding these findings. PAST MEDICAL HISTORY/PAST SURGICAL HISTORY/ MEDICATIONS/ALLERGIES: And other history are reviewed. In my discussion I did not elicit any additional information and cannot add to these findings. FAMILY HISTORY: Important in her family history is noted that her sister last year pancreatic cancer. OBJECTIVE CT scan as described above. The chest CT scan showed no overt mass effect. Abdominal x-ray showed no overt evidence of obstruction. Renal ultrasound showed normal renal parenchyma normal architecture no hydronephrosis. LABORATORY FINDINGS: Labs are noted on admission for altered renal function with a BUN of 27 and 1.7, however, this has improved with a renal function 21 and 0.96 on the . The labs are pending for this morning H&H has been stable most recently 13.9 and 41.7. Tumor markers are such that CA-125 is modestly elevated at 349, CA 19-9 and CEA and alpha-fetoprotein are all within normal limits. PHYSICAL EXAMINATION VITAL SIGNS: Afebrile, pulse 82-99, respirations 18-20, blood pressure 110-158 over 57-68, O2 saturations greater than or equal to 92%. IN GENERAL: She appears to have somewhat of a diminished performance status chronically ill but in no acute distress. No acute discomfort at this time. LUNGS: Lungs are clear at apices the rales deep diminished air sounds diminished breath sounds and some rales at the bases. CARDIOVASCULAR SYSTEM: Cardiovascular Regular in rhythm. ABDOMEN: The abdomen is protuberant. There is umbilical hernia. It is not acute. Her abdomen is nonacute. There is a drain and the right lower quadrant that appears to be recent surgical drainage for reaccumulation of ascites, small amount of ascites is in the bag at the present time. GYNECOLOGY: ICT TEACHER exam deferred until more optimal setting. 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 DISCUSSION: Time is spent discussion with her reviewing the findings her case to date. The reason for ICT TEACHER oncology consultation is explained. I Explained to her that we are trying to figure out what is with what is going on its making her feel poorly she understands that it is a cancer problem based on the adenocarcinoma in the ascites and the surgical findings are certainly suggestive of diffuse intraperitoneal carcinomatosis. We are waiting for the solid tissue biopsy results that may help further clarify the potential origin of this problem so that we can make treatment recommendations. She is encouraged to follow through with recommendations of others and diagnostic to try to identify the source of the tumor. She has been inconsistently compliant with these recommendations. Her focus is to try to, as she would like to get home as soon as possible and address her personal affairs which certainly understandable and we hope that, that will be possible quite soon. We discussed. Philosophically whether not she wants to consider treatment which would in all probability include chemotherapy and she seems somewhat undecided at this time. She is apprehensive about the side effects but also apprehensive about the progression of the underlying illness and is not ready to make a decision at this time. It is noted that she does not outwardly refuse treatment and does not wish to consider palliative and hospice care at this time. More questions were asked and answered. She seemed to understand the pertinent aspects of our discussion. ASSESSMENT 1. Intraperitoneal carcinomatosis ascites modest elevated CA-125. 2. Remote history of cervical cancer treated radiation chemotherapy. 3. Discussion. PLAN 1. Await interpretation by pathology from recent biopsies obtained by Dr. Calvillo during laparoscopic surgery as this may ultimately clarify the potential origin of tumor and help focus treatment recommendations. 2. Continue ongoing evaluation supportive care and ongoing education regarding her findings and status. Thank for the consultation. Will follow along her care. MD PAZ Lizama/eleonora /7:50 AM /12:47 PM
--- NOTE | 2017-02-05 15:48 | HHI.GIFU ---
Subjective Remarks Resting in bed. Tolerating diet. Feeling better since her collection bag for her ascites was changed. D/W patient possible evaluation with EGD to evaluate for gastric malignancy. At this time, she would like to hold off and await on peritoneal biopsy. She reports that she would more than likely not wish to pursue EGD even if this is nondiagnostic, stating, "If I'm dying, why do I even need to know where it came from?" She also reports that she had a friend bleed during an endoscopy and is very hesitant to ever have one herself. Objective Vitals I&O Vital Signs Date Time Temp Pulse Resp B/P Pulse Ox O2 Delivery O2 Flow Rate FiO2 02/05/17 12:00 96.6 86 20 114/58 95 02/05/17 08:00 96.4 84 20 117/58 94 02/05/17 04:00 98.1 82 20 110/59 94 02/05/17 00:00 98.5 89 20 131/57 92 02/04/17 20:16 Nasal Cannula 3.00 02/04/17 20:00 97.6 99 20 149/66 92 02/04/17 20:00 94 Nasal Cannula 2.00 02/04/17 16:00 98.2 98 20 132/68 94 I/O 02/04/17 02/04/17 02/04/17 02/05/17 02/05/17 02/05/17 07:00 15:00 23:00 07:00 15:00 23:00 Intake Total 480 ml 360 ml 501 ml 360 ml Output Total 600 ml 1550 ml Balance -120 ml 360 ml -1049 ml 360 ml Intake Oral 480 ml 360 ml 240 ml 360 ml IV Total 261 ml Output Urine Total 400 ml Drainage Total 600 ml 1150 ml Bladder Scan Volume Amount 118 ml # Voids 2 1 Laboratory Laboratory Tests Test 02/05/17 06:45 White Blood Count 18.6 Red Blood Count 4.34 Hemoglobin 13.9 Hematocrit 41.7 Mean Corpuscular Volume 96.1 Mean Corpuscular Hemoglobin 31.9 Mean Corpuscular Hemoglobin 33.2 Concent Red Cell Distribution Width 12.5 Platelet Count 249 Mean Platelet Volume 9.6 Sodium Level 131 Potassium Level 4.8 Chloride Level 93 Carbon Dioxide Level 32.6 Anion Gap 5 Blood Urea Nitrogen 27 Creatinine 1.10 Estimat Glomerular Filtration 50 Rate Random Glucose 179 Calcium Level 8.5 Imaging Last Impressions Chest CT 01/31/17 0000 Signed Impressions: Service Date/Time: January 10:06 - CONCLUSION: 1. No discrete mass lesion identified. 2. Minimal bibasilar effusions with atelectatic changes in the lung bases. 3. No significant adenopathy. Juan Pleitez MD Abdomen X-Ray 01/28/17 0600 Signed Impressions: Service Date/Time: Saturday, January 28, 2017 15:13 - CONCLUSION: No definite bowel dilatation or free air is seen. Sriram Sunshine MD Cyst Biopsy Asp-Paracentesis US 01/27/17 0000 Signed Impressions: Service Date/Time: Friday, January 27, 2017 11:00 - CONCLUSION: Uncomplicated ultrasound guided paracentesis. Juan Pleitez MD Abdomen/Pelvis CT 01/26/17 1349 Signed Impressions: Service Date/Time: Thursday, January 26, 2017 14:38 - CONCLUSION: 1. Moderate to large amount of ascites without definitive etiology identified on CT. No definitive mesenteric mass or hepatic volume loss. Evaluation of the mesentery and liver are however limited due to lack of IV contrast. 2. Periumbilical anterior bowel wall hernia containing fat and ascites fluid. Myke Kendall MD ADDENDUM: Reexamination of the pelvic CT exam does demonstrate a small uterus which appears unremarkable by CT. The uterus was originally reported as surgically absent. Myke Kendall MD Chest X-Ray 01/26/17 1155 Signed Impressions: Service Date/Time: Thursday, January 26, 2017 12:13 - CONCLUSION: Underinflated examination with atelectasis at the bases. No acute finding is identified. Sriram Paul MD Renal Ultrasound 01/26/17 0000 Signed Impressions: Service Date/Time: Thursday, January 26, 2017 17:59 - CONCLUSION: Ultrasound appearance of the kidneys and urinary bladder within normal limits. Sriram Kaufman MD Physical Exam HEENT: Normocephalic; atraumatic; no jaundice. Legally blind. CHEST: Resp shallow/even, Diminished breath sounds CARDIAC: RRR. ABDOMEN: Soft, obese, nondistended, mild diffuse tenderness, umbilical hernia, no hepatosplenomegaly; bowel sounds hypoactive. Collection bag collecting ascitic fluid. EXTREMITIES: right upper extremity/hand deformity, cyanosis, BLE edema SKIN: Normal; no rash; no jaundice. SPEECH CORRECTION CONSULTANT: No focal deficits; alert and oriented times three. Assessment and Plan Plan ASSESSMENT: - New onset ascites, suspicious for malignancy. S/P US guided paracentesis ()---> 7,100cc cloudy yellow fluid was removed. No albumin or protein done on peritoneal fluid. Abdomen/Pelvis CT (01/26/17)-----> 1. Moderate to large amount of ascites without definitive etiology identified on CT. No definitive mesenteric mass or hepatic volume loss. Evaluation of the mesentery and liver are however limited due to lack of IV contrast. 2. Periumbilical anterior bowel wall hernia containing fat and ascites fluid. ADDENDUM: Reexamination of the pelvic CT exam does demonstrate a small uterus which appears unremarkable by CT. The uterus was originally reported as surgically absent. Chest CT (01/31/17)----> 1. No discrete mass lesion identified. 2. Minimal bibasilar effusions with atelectatic changes in the lung bases. 3. No significant adenopathy. She has a history of cervical cancer. Hepatitis negative. HUBER negative, Celiac negative. Ferritin 230, Iron saturation 15.6. Alpha 1 antitrypsin 290, Ceruloplasmin 34, AFP 1.2, CEA 1.1, Ca 15-3 23.1, Ca 19-9 21.2, Ca 125 348.8. Cytology positive for malignant cells, suggestive of adenocarcinoma- pattern of staining could be seen in adenocarcinoma of breast, upper digestive tract, lung, or ovary. S/P Diagnostic laparoscopy, paracentesis, biopsy peritoneum and omentum (02/01/17) -- -> carcinomatosis. Pathology pending. Spoke to patient re: possible EGD to evaluate for GI malignancy. Pt would like to get the pathology back from the peritoneal/omentum biopsy first and then will consider it, although she states that even at that point, she will most likely decide not to pursue EGD. BUILDER OPERATOR Oncology/GS following, awaiting biopsy from peritoneum/omentum. - Constipation. Abdomen X-Ray (01/28/17)----> No definite bowel dilatation or free air is seen. Miralax - Nausea, vomiting. Tolerating diet - Abdominal pain. Intermittent diffuse abdominal discomfort. Pain management per attending. - DM, HTN, nephropathy, neuropathy, recurrent UTI per primary - Hx cervical cancer, s/p radiation and chemotherapy in 2004. Recommendations: - LELO - Await peritoneal/omentum pathology results - Oncology following - GS following - BUILDER OPERATOR Oncology consulted - Pt does not wish to proceed with EGD at this time. She would like to wait for the peritoneal biopsy and states that even if this is not diagnostic, she would likely not want to pursue the EGD. - Patient seen and examined by Dr. Pena and myself and this note is written on his behalf Destinee Heard Feb 05, 2017 15:48
[2017-02-05 16:00] VITALS: BP 143/63; PULSE 89; RESP 20; TEMP 96.7; O2SAT 93
[2017-02-05] MEDS: cefTRIAXone INJ 1,000 MG in SODIUM CHLORIDE 0.9% INJ 100 ML IV SCH (16:53)
[2017-02-05 20:00] VITALS: BP 122/58; PULSE 92; RESP 20; TEMP 98; O2SAT 94
--- NOTE | 2017-02-05 23:49 | MP ---
cc: GREGORY CALVILLO M.D., KELLY L. MD DATE OF SURGERY: 02/01/2017 PROCEDURE: Diagnostic laparoscopy. Paracentesis. Biopsy of omentum and peritoneum. PREOPERATIVE DIAGNOSIS: Unexplained ascites. POSTOPERATIVE DIAGNOSIS: Carcinomatosis from likely ovarian or uterine source. ANESTHESIA: General endotracheal anesthesia SURGEON: Gilda Calvillo MD. ESTIMATED BLOOD LOSS: 10 mL FLUIDS: 900 mL Crystalloid COMPLICATIONS: None. DRAINS: None. SPECIMEN: Omentum and peritoneal tissue to pathology. PROCEDURE IN DETAIL: The patient was taken to the operating room and placed on the operating table in the supine position. After an adequate level of general endotracheal anesthesia was achieved the abdomen was prepped and draped in usual fashion. Time-out was taken confirming the correct patient, site and procedure to be performed. Incision was made to the right and above the umbilicus and a 5-mm trocar was inserted with a 0 degree 5 millimeter laparoscope. The peritoneal cavity was directly visualized, after entering through the fascial layers with insufflation on low. The peritoneum was noted to have studding with what appeared to be a neoplastic process. At this point two additional 5 millimeter trocars were placed with one above the umbilicus and the second below the umbilicus in the midline. Both entered the abdominal cavity under direct vision uneventfully. This allowed for manipulation. Omental tissue that was incarcerated in the umbilicus was taken down with the harmonic scalpel. Some of the tissue could not be removed in the umbilicus and was left intact as it was sterile. There was concern that continued growth of the tumor on the omentum would cause a problem in the umbilicus and thus the reason for taking this down with the harmonic scalpel. A specimen was taken of this tissue which had significant tumor on it and was taken from the peritoneum as well. A second specimen was taken from omentum further down where an adequate specimen could be obtained. A 5 millimeter EndoCatch device was used to place the larger specimen into the bag and this was removed via the infraumbilical port site and passed off the table. With hemostasis assured, the abdomen had remaining ascites aspirated to provide for patient comfort; a total of 1.5 liters of ascites was removed. When this was completed, insufflation was discontinued and the trocars removed. Dissection was carried down to the infraumbilical 5 millimeter trocar site as there was significant continued leakage of ascites and there was concern that this would occur postoperatively as well, as this was the most inferior trocar site, and the most dependent. This was repaired with 0 Vicryl suture to create a watertight closure. When this had been completed, all three trocar sites were then closed at the skin with 4-0 Vicryl in interrupted buried fashion. All trocar sites were dressed with Steri-Strips. The patient was extubated and taken back to the Recovery Room in stable condition. She tolerated the procedure well. Gregory Calvillo MD [facility] /9:12 AM /11:42 PM
[2017-02-06] VITALS (7 sets, daily range): BP systolic 117–137; BP diastolic 57–66; PULSE 83–90; RESP 17–20; TEMP 95.9–97.9; O2SAT 95–97
[2017-02-06] MEDS: SODIUM CHLOR 0.9% 1000 ML INJ 1,000 ML IV SCH (04:57)
[2017-02-06] MEDS: INSULIN ASPART SUPPLEMENTAL SCALE SQ SCH ×4 (07:00→22:01)
[2017-02-06 07:13] LABS: HEMATOCRIT 43.1 % (35.0-46.0); MEAN CELL VOLUME 96.6 FL (80.0-100.0); MEAN CORPUSCULAR HEMOGLOBIN 31.7 PG (27.0-34.0); MEAN CORPUSCULAR HGB CONC 32.8 % (32.0-36.0); PLATELET COUNT 259 TH/MM3 (150-450); RED BLOOD COUNT 4.46 MIL/MM3 (4.00-5.30); RED CELL DISTRIBUTION WIDTH 12.8 % (11.6-17.2); REVIEW FLAG FINAL; WHITE BLOOD COUNT 16.9 TH/MM3 (4.0-11.0)
[2017-02-06] MEDS: CARVEDILOL 12.5 MG TAB PO SCH ×2 (08:37→21:59)
[2017-02-06] MEDS: POLYETHYLENE GLYCOL 17 GM PKG PO SCH (08:37)
[2017-02-06] MEDS: DOCUSATE SODIUM 50 MG/SENNA 8.6 MG TAB PO SCH ×2 (08:37→21:59)
[2017-02-06] MEDS: INSULIN DETEMIR 100 UNITS/ML VIAL SQ SCH (08:40)
[2017-02-06] MEDS: SODIUM CHLORIDE 0.9% FLUSH 10 ML FLUSH IV FLUSH SCH ×2 (08:41→21:00)
[2017-02-06] MEDS: BRIMONIDINE TARTRATE 0.2% OPHT SOLN 5 ML BTL EACH EYE SCH ×2 (08:41→22:05)
[2017-02-06] MEDS: TIMOLOL MALEATE 0.5% OPHT SOLN 5 ML BTL EACH EYE SCH ×2 (08:42→22:06)
[2017-02-06] MEDS: NYSTATIN 100,000 U/GM PWD 15 GM BTL TOPICAL SCH ×2 (08:42→21:00)
--- NOTE | 2017-02-06 09:18 | PD.ONC.PN ---
Subjective Subjective Remarks AFebrile overnight. Complaining of gas. States she was ambulating around the room yesterday with PT in an attempt to get home faster. Eating breakfast. Objective Data Date Time Temp Pulse Resp B/P Pulse Ox O2 Delivery O2 Flow Rate FiO2 02/06/17 08:00 96.7 84 20 125/58 95 02/06/17 04:00 97.0 83 20 132/60 95 02/06/17 00:00 97.9 84 20 121/57 95 02/05/17 20:00 98.0 92 20 122/58 94 02/05/17 16:00 96.7 89 20 143/63 93 02/05/17 12:00 96.6 86 20 114/58 95 02/06/17 02/06/17 02/06/17 07:00 15:00 23:00 Intake Total 500 ml Balance 500 ml Result Diagram: 02/06/17 0545 02/06/17 0545 Laboratory Results Laboratory Tests Test 02/06/17 05:45 White Blood Count 16.9 TH/MM3 Red Blood Count 4.46 MIL/MM3 Hemoglobin 14.1 GM/DL Hematocrit 43.1 % Mean Corpuscular Volume 96.6 FL Mean Corpuscular Hemoglobin 31.7 PG Mean Corpuscular Hemoglobin 32.8 % Concent Red Cell Distribution Width 12.8 % Platelet Count 259 TH/MM3 Mean Platelet Volume 10.6 FL Hematology Comments Sodium Level 132 MEQ/L Potassium Level 5.0 MEQ/L Chloride Level 95 MEQ/L Carbon Dioxide Level 31.0 MEQ/L Anion Gap 6 MEQ/L Blood Urea Nitrogen 26 MG/DL Creatinine 1.01 MG/DL Estimat Glomerular Filtration 55 ML/MIN Rate Random Glucose 267 MG/DL Calcium Level 8.2 MG/DL Administered Medications Medications (Trade) Dose Ordered Sig/Rigoberto Route PRN Reason Start Time Stop Time Status Last Admin Dose Admin Alprazolam (Xanax) 0.5 mg Q8H PRN PO ANXIETY 01/26/17 16:15 02/01/17 22:23 Brimonidine Tartrate (Alphagan 0.2% Opth Soln) 1 drop BID EACH EYE 01/26/17 21:00 02/06/17 08:41 Glyburide (Diabeta) 5 mg DAILY PO 01/27/17 09:00 Hold 01/29/17 08:54 Insulin Human Isoph/Insulin Regular (NovoLIN 70/30 INJ) 40 units DAILY SQ 01/27/17 09:00 Hold 01/29/17 09:00 Timolol Maleate (Timoptic 0.5% Opt Soln) 1 drop BID EACH EYE 01/26/17 21:00 02/06/17 08:42 Carvedilol 12.5 mg 12.5 mg Q12HR PO 01/28/17 13:52 02/06/17 08:37 Ceftriaxone Sodium/Sodium Chloride (Rocephin Inj/NS Inj) 100 ml @ 200 mls/hr Q24H IV 01/29/17 18:00 02/05/17 16:53 Enoxaparin Sodium (Lovenox Inj) 40 mg Q24H SQ 01/29/17 12:00 02/05/17 11:49 Insulin Detemir (Levemir Inj) 10 units Q12HR SQ 01/31/17 21:00 02/06/17 08:40 Acetaminophen/ Hydrocodone Bitart 1 tab 1 tab Q4H PRN PO PAIN SCALE 1 TO 5 02/01/17 15:30 02/05/17 10:23 Sodium Chloride (NS 1000 ml Inj) 1,000 ml @ 100 mls/hr Q10H IV 02/02/17 10:59 02/06/17 04:57 Sodium Chloride (NS Flush) 2 ml BID IV FLUSH 02/02/17 21:00 02/06/17 08:41 Ondansetron HCl (Zofran Inj) 4 mg Q6H PRN IVP NAUSEA OR VOMITING 02/02/17 11:00 02/04/17 18:56 Senna/Docusate Sodium (Astrid-Colace) 1 tab BID PO 02/02/17 21:00 02/06/17 08:37 Polyethylene Glycol (Miralax) 17 gm DAILY PO 02/04/17 11:45 02/06/17 08:37 Objective Remarks GENERAL: Middle aged obese female upright in bed eating breakfast. SKIN: Warm and dry. HEAD: Normocephalic. EYES: No injection or drainage. NECK: Supple, trachea midline. CARDIOVASCULAR: Regular rate and rhythm RESPIRATORY: Breath sounds equal bilaterally. No accessory muscle use. GASTROINTESTINAL: Abdomen obese, no tenderness to palpation. EXTREMITIES: No cyanosis NEUROLOGICAL: aox3. normal speech. moving all extremities. Assessment/Plan Problem List: (1) Metastatic adenocarcinoma of unknown origin Status: Acute Plan: --s/p paracentesis with removal 7.1 liters of cloudy yellowish fluid--> Cytology +adenocarcinoma. Hepatitis panel was negative. --CA-125 is slightly elevated at 348 which is nonspecific. --Alpha-fetoprotein, CEA and CA19-9 were all normal. --CT ab/pelvis: no definite mass. --CT chest: no mass --ex lap, 02/01 showed carcinomatosis, pathology pending from biopsies obtained. Assessment 62y/o female with new onset ascites suspicious for malignancy. --history of cervical cancer treated with radiation and chemotherapy in 2003. --Diabetes mellitus. recurrent urinary tract infection. Hypertension --Nephropathy, neuropathy and retinopathy. Right eye blindness Plan 1. appreciate palliative care consult 2. await final pathology--patient will likely be a candidate for hospice once final pathology returns if she continues to express desire for no treatment. 3. continue supportive care. Attending Statement The exam, history, and the medical decision-making described in the above note were completed with the assistance of the mid-level provider. I reviewed and agree with the findings presented. I attest that I had a [id number] encounter with the patient on the same day, and personally performed and documented my assessment and findings in the medical record. Still draining ascitic fluid. No significant abdominal pain. Peritoneal biopsy path pending. Continue supportive care. Will discuss treatment option vs hospice care once we have the final path. Miriam Sanchez Feb 06, 2017 09:18 Zhen Zepeda MD Feb 06, 2017 16:09
--- NOTE | 2017-02-06 09:25 | HHI.PR ---
Subjective Remarks Ambulation is not yet steady. Blood sugars not controlled. She will need better ambulation of home discharge is to be an option for her. Objective Vital Signs Date Time Temp Pulse Resp B/P Pulse Ox O2 Delivery O2 Flow Rate FiO2 02/06/17 08:00 96.7 84 20 125/58 95 02/06/17 04:00 97.0 83 20 132/60 95 02/06/17 00:00 97.9 84 20 121/57 95 02/05/17 20:00 98.0 92 20 122/58 94 02/05/17 16:00 96.7 89 20 143/63 93 02/05/17 12:00 96.6 86 20 114/58 95 I/O 02/05/17 02/05/17 02/05/17 02/06/17 02/06/17 02/06/17 07:00 15:00 23:00 07:00 15:00 23:00 Intake Total 1015 ml 593 ml 500 ml Output Total 500 ml 620 ml Balance 515 ml -27 ml 500 ml Intake Oral 360 ml 240 ml 500 ml IV Total 655 ml 353 ml Output Urine Total 620 ml Drainage Total 500 ml Bladder Scan Volume Amount 118 ml # Voids 3 # Bowel Movements 0 0 Result Diagram: 02/06/17 0545 02/06/1745 Objective Remarks GENERAL: NAD, A&Ox3, severe obesity HEAD: Normocephalic. NECK: Supple, trachea midline. No lymphadenopathy. EYES: No scleral icterus. No injection or drainage. CARDIOVASCULAR: Regular rate and rhythm without murmurs, gallops, or rubs. RESPIRATORY: Breath sounds equal bilaterally. No accessory muscle use. GASTROINTESTINAL: Abdomen soft, non-tender, nondistended. MUSCULOSKELETAL: No cyanosis, or edema. SKIN: Warm and dry. NEURO: No focal neurological deficitis. A/P Problem List: (1) Ascites ICD Code: R18.8 (2) Hypoxia ICD Code: R09.02 (3) Abdominal distention ICD Code: R14.0 (4) Umbilical hernia ICD Code: K42.9 Assessment and Plan Assessment and Plan 62-year-old female admitted with hypoxia and abdominal distention related to ascites. Malignancy of suspected malignant adenoma. Continue physical therapy. NPH insulin added to try to improve sugar control. She started at 20 units twice a day of NPH insulin. Levemir discontinued. Ascites cytology from last paracentesis is positive for malignancy with suspicion for adenoma History of cervical cancer in the past Gynecology following Surgery following GI following Oncology following Follow for recurrence Hypoxia Improving Likely a combination of obesity and ascites Continue oxygen as needed Status post drainage of ascites Wean oxygen as tolerated Urinary tract infection Resolved Treatment completed ARF (acute renal failure) Resolved Chronic kidney disease may be present Follow renal function Diabetes mellitus type 2 Follow blood sugars Insulin sliding scale Diabetic diet NPH SQ BID HTN (hypertension) Follow blood pressures Currently stable No change in present treatment Umbilical hernia Acute phase is likely related to ascites Follow clinically for now She is not a good surgical candidate Constipation As needed laxatives Global weakness Continue physical therapy Discharge plan: Physical therapy ongoing, fdc facility versus home health care discharge. Problem Qualifiers (1) Ascites: Qualified Code: R18.0 - Malignant ascites Juan Gallegos MD Feb 06, 2017 09:25
[2017-02-06] MEDS ORDERED: INSULIN HUMAN NPH 1,000 UNITS/10 ML VIAL SQ ONE (10:15)
[2017-02-06] MEDS: ENOXAPARIN SODIUM 40 MG/0.4 ML SYRINGE SQ SCH (11:57)
--- NOTE | 2017-02-06 12:14 | HHI.HCPN ---
Met with Ms. Zimmer for follow-up palliative care visit and discussion/ assistance with her concerns and affairs. She is awake, alert, and able to make her needs known. She is fairly pleasant throughout conversation. Denies any pain. Reports some discomfort relating to her overall medical condition. She remains adamant regarding goals to get stronger and discharge home to get some affairs taken care of. Discussed and assisted with concerns where able. Information regarding attorneys, cremation services, etc provided. Ms. Zimmer is legally blind so she requested assistance with some telephone calls to obtain further information where able. Ms. Zimmer is very appreciative of assistance and palliative care visits. Palliative care will continue to follow throughout hospitalization. Ute Marte, COMPUTER NETWORKING INSTRUCTOR Feb 06, 2017 12:14
--- NOTE | 2017-02-06 15:46 | HHI.GIFU ---
Subjective Remarks Pt resting in bed in no apparent distress. "everybody is going to eventually." Feels okay, no complaints. Objective Vitals I&O Vital Signs Date Time Temp Pulse Resp B/P Pulse Ox O2 Delivery O2 Flow Rate FiO2 02/06/17 12:04 95 Nasal Cannula 3.00 02/06/17 12:00 97.1 90 20 124/58 96 02/06/17 08:00 96.7 84 20 125/58 95 02/06/17 04:00 97.0 83 20 132/60 95 02/06/17 00:00 97.9 84 20 121/57 95 02/05/17 20:00 98.0 92 20 122/58 94 02/05/17 16:00 96.7 89 20 143/63 93 I/O 02/05/17 02/05/17 02/05/17 02/06/17 02/06/17 02/06/17 07:00 15:00 23:00 07:00 15:00 23:00 Intake Total 1015 ml 593 ml 500 ml 1368 ml Output Total 500 ml 620 ml 1000 ml Balance 515 ml -27 ml 500 ml 368 ml Intake Oral 360 ml 240 ml 500 ml 600 ml IV Total 655 ml 353 ml 768 ml Output Urine Total 620 ml 1000 ml Drainage Total 500 ml Bladder Scan Volume Amount 118 ml # Voids 3 # Bowel Movements 0 0 Laboratory Laboratory Tests Test 02/06/17 05:45 White Blood Count 16.9 Red Blood Count 4.46 Hemoglobin 14.1 Hematocrit 43.1 Mean Corpuscular Volume 96.6 Mean Corpuscular Hemoglobin 31.7 Mean Corpuscular Hemoglobin 32.8 Concent Red Cell Distribution Width 12.8 Platelet Count 259 Mean Platelet Volume 10.6 Hematology Comments Sodium Level 132 Potassium Level 5.0 Chloride Level 95 Carbon Dioxide Level 31.0 Anion Gap 6 Blood Urea Nitrogen 26 Creatinine 1.01 Estimat Glomerular Filtration 55 Rate Random Glucose 267 Calcium Level 8.2 Imaging Last Impressions Chest CT 01/31/17 0000 Signed Impressions: Service Date/Time: January 10:06 - CONCLUSION: 1. No discrete mass lesion identified. 2. Minimal bibasilar effusions with atelectatic changes in the lung bases. 3. No significant adenopathy. Juan Pleitez MD Abdomen X-Ray 01/28/17 0600 Signed Impressions: Service Date/Time: Saturday, January 28, 2017 15:13 - CONCLUSION: No definite bowel dilatation or free air is seen. Sriram Sunshine MD Cyst Biopsy Asp-Paracentesis US 01/27/17 0000 Signed Impressions: Service Date/Time: Friday, January 27, 2017 11:00 - CONCLUSION: Uncomplicated ultrasound guided paracentesis. Juan Pleitez MD Abdomen/Pelvis CT 01/26/17 1349 Signed Impressions: Service Date/Time: Thursday, January 26, 2017 14:38 - CONCLUSION: 1. Moderate to large amount of ascites without definitive etiology identified on CT. No definitive mesenteric mass or hepatic volume loss. Evaluation of the mesentery and liver are however limited due to lack of IV contrast. 2. Periumbilical anterior bowel wall hernia containing fat and ascites fluid. Myke Kendall MD ADDENDUM: Reexamination of the pelvic CT exam does demonstrate a small uterus which appears unremarkable by CT. The uterus was originally reported as surgically absent. Myke Kendall MD Chest X-Ray 01/26/17 1155 Signed Impressions: Service Date/Time: Thursday, January 26, 2017 12:13 - CONCLUSION: Underinflated examination with atelectasis at the bases. No acute finding is identified. Sriram Paul MD Renal Ultrasound 01/26/17 0000 Signed Impressions: Service Date/Time: Thursday, January 26, 2017 17:59 - CONCLUSION: Ultrasound appearance of the kidneys and urinary bladder within normal limits. Sriram Kaufman MD Physical Exam HEENT: Normocephalic; atraumatic; no jaundice. Legally blind. CHEST: Resp shallow/even, Diminished breath sounds CARDIAC: RRR. ABDOMEN: Soft, obese, nondistended, mild diffuse tenderness, umbilical hernia, no hepatosplenomegaly; bowel sounds hypoactive. Collection bag collecting ascitic fluid. EXTREMITIES: right upper extremity/hand deformity, cyanosis, BLE edema SKIN: Normal; no rash; no jaundice. PARKING STATION ATTENDANT: No focal deficits; alert and oriented times three. Assessment and Plan Plan ASSESSMENT: - New onset ascites, suspicious for malignancy. S/P US guided paracentesis ()---> 7,100cc cloudy yellow fluid was removed. No albumin or protein done on peritoneal fluid. Abdomen/Pelvis CT (01/26/17)-----> 1. Moderate to large amount of ascites without definitive etiology identified on CT. No definitive mesenteric mass or hepatic volume loss. Evaluation of the mesentery and liver are however limited due to lack of IV contrast. 2. Periumbilical anterior bowel wall hernia containing fat and ascites fluid. ADDENDUM: Reexamination of the pelvic CT exam does demonstrate a small uterus which appears unremarkable by CT. The uterus was originally reported as surgically absent. Chest CT (01/31/17)----> 1. No discrete mass lesion identified. 2. Minimal bibasilar effusions with atelectatic changes in the lung bases. 3. No significant adenopathy. She has a history of cervical cancer. Hepatitis negative. HUBER negative, Celiac negative. Ferritin 230, Iron saturation 15.6. Alpha 1 antitrypsin 290, Ceruloplasmin 34, AFP 1.2, CEA 1.1, Ca 15-3 23.1, Ca 19-9 21.2, Ca 125 348.8. Cytology positive for malignant cells, suggestive of adenocarcinoma- pattern of staining could be seen in adenocarcinoma of breast, upper digestive tract, lung, or ovary. S/P Diagnostic laparoscopy, paracentesis, biopsy peritoneum and omentum (02/01/17) -- -> carcinomatosis. Pathology pending. Spoke to patient re: possible EGD to evaluate for GI malignancy. Pt still refusing EGD but says she may change her mind later. METAL BASE BLOCKER Oncology/GS following, awaiting biopsy from peritoneum/omentum. - Constipation. Abdomen X-Ray (01/28/17)----> No definite bowel dilatation or free air is seen. Miralax - Nausea, vomiting. Tolerating diet - Abdominal pain. Intermittent diffuse abdominal discomfort. Pain management per attending. - DM, HTN, nephropathy, neuropathy, recurrent UTI per primary - Hx cervical cancer, s/p radiation and chemotherapy in 2003. Recommendations: - LELO - Await peritoneal/omentum pathology results - Oncology following - GS following - METAL BASE BLOCKER Oncology consulted - Pt does not wish to proceed with EGD at this time. She says she may change her mind, but not yet. - Patient seen and examined by Dr. Pena and myself and this note is written on his behalf Heavenly James Feb 06, 2017 15:46 Heavenly James Feb 06, 2017 15:46
[2017-02-06] MEDS: cefTRIAXone INJ 1,000 MG in SODIUM CHLORIDE 0.9% INJ 100 ML IV SCH (16:44)
[2017-02-06] MEDS: INSULIN HUMAN NPH 1,000 UNITS/10 ML VIAL SQ SCH (16:47)
[2017-02-06] MEDS ORDERED: INSULIN HUMAN NPH 1,000 UNITS/10 ML VIAL SQ SCH ×2 (17:00)
[2017-02-06] MEDS: LACTULOSE SYRUP 20 GM/30 ML CUP PO PRN (22:02)
[2017-02-06] MEDS: SENNOSIDES 8.6 MG TAB PO PRN (22:02)
[2017-02-07] VITALS (8 sets, daily range): BP systolic 107–140; BP diastolic 54–66; PULSE 62–99; RESP 18–22; TEMP 95.4–97.6; O2SAT 92–98
[2017-02-07] MEDS: SODIUM CHLOR 0.9% 1000 ML INJ 1,000 ML IV SCH ×3 (00:20→20:37)
[2017-02-07] MEDS: INSULIN ASPART SUPPLEMENTAL SCALE SQ SCH ×4 (06:26→23:09)
[2017-02-07] MEDS: BRIMONIDINE TARTRATE 0.2% OPHT SOLN 5 ML BTL EACH EYE SCH ×2 (09:00→20:42)
[2017-02-07] MEDS: SODIUM CHLORIDE 0.9% FLUSH 10 ML FLUSH IV FLUSH SCH ×2 (09:00→20:43)
[2017-02-07] MEDS: CARVEDILOL 12.5 MG TAB PO SCH ×3 (09:00→20:37)
[2017-02-07] MEDS: NYSTATIN 100,000 U/GM PWD 15 GM BTL TOPICAL SCH ×2 (09:00→20:43)
[2017-02-07] MEDS: TIMOLOL MALEATE 0.5% OPHT SOLN 5 ML BTL EACH EYE SCH ×2 (09:00→20:43)
[2017-02-07] MEDS: INSULIN HUMAN NPH 1,000 UNITS/10 ML VIAL SQ SCH (09:27)
[2017-02-07] MEDS: DOCUSATE SODIUM 50 MG/SENNA 8.6 MG TAB PO SCH ×2 (09:27→20:37)
[2017-02-07] MEDS: POLYETHYLENE GLYCOL 17 GM PKG PO SCH (09:27)
--- NOTE | 2017-02-07 09:57 | PD.ONC.PN ---
Subjective Subjective Remarks Afebrile overnight. Eating breakfast. No complaints. Objective Data Date Time Temp Pulse Resp B/P Pulse Ox O2 Delivery O2 Flow Rate FiO2 02/07/17 09:35 Nasal Cannula 2.00 02/07/17 08:00 97.3 75 19 119/59 94 02/07/17 04:00 95.4 76 18 116/55 92 02/07/17 01:51 96.8 78 18 118/54 95 02/06/17 20:00 Nasal Cannula 2.00 02/06/17 20:00 95.9 89 17 117/66 95 02/06/17 17:54 Nasal Cannula 3.00 02/06/17 16:00 97.3 86 20 137/61 97 02/06/17 12:04 95 Nasal Cannula 3.00 02/06/17 12:00 97.1 90 20 124/58 96 02/07/17 02/07/17 02/07/17 07:00 15:00 23:00 Intake Total 1160 ml Output Total 1825 ml Balance -665 ml Result Diagram: 02/06/1745 02/06/1745 Administered Medications Medications (Trade) Dose Ordered Sig/Rigoberto Route PRN Reason Start Time Stop Time Status Last Admin Dose Admin Alprazolam (Xanax) 0.5 mg Q8H PRN PO ANXIETY 01/26/17 16:15 02/01/17 22:23 Brimonidine Tartrate (Alphagan 0.2% Opth Soln) 1 drop BID EACH EYE 01/26/17 21:00 02/07/17 09:00 Glyburide (Diabeta) 5 mg DAILY PO 01/27/17 09:00 Hold 01/29/17 08:54 Insulin Human Isoph/Insulin Regular (NovoLIN 70/30 INJ) 40 units DAILY SQ 01/27/17 09:00 Hold 01/29/17 09:00 Timolol Maleate (Timoptic 0.5% Opth Soln) 1 drop BID EACH EYE 01/26/17 21:00 02/07/17 09:00 Carvedilol 12.5 mg 12.5 mg Q12HR PO 01/28/17 13:52 02/06/17 21:59 Ceftriaxone Sodium/Sodium Chloride (Rocephin Inj/NS Inj) 100 ml @ 200 mls/hr Q24H IV 01/29/17 18:00 02/06/17 16:44 Enoxaparin Sodium (Lovenox Inj) 40 mg Q24H SQ 01/29/17 12:00 02/06/17 11:57 Acetaminophen/ Hydrocodone Bitart 1 tab 1 tab Q4H PRN PO PAIN SCALE 1 TO 5 02/01/17 15:30 02/05/17 10:23 Sodium Chloride (NS 1000 ml Inj) 1,000 ml @ 100 mls/hr Q10H IV 02/02/17 10:59 02/07/17 09:28 Sodium Chloride (NS Flush) 2 ml BID IV FLUSH 02/02/17 21:00 02/06/17 08:41 Ondansetron HCl (Zofran Inj) 4 mg Q6H PRN IVP NAUSEA OR VOMITING 02/02/17 11:00 02/04/17 18:56 Senna/Docusate Sodium (Astrid-Colace) 1 tab BID PO 02/02/17 21:00 02/07/17 09:27 Magnesium Hydroxide (Milk Of Magnesia Liq) 30 ml Q12H PRN PO MILD - MODERATE CONSTIPATION 02/02/17 11:00 02/07/17 09:27 Sennosides (Senokot) 17.2 mg Q12H PRN PO MODERATE - SEVERE CONSTIPATION 02/02/17 11:00 02/06/17 22:02 Lactulose (Lactulose Liq) 30 ml DAILY PRN PO SEVERE CONSITIPATION 02/02/17 11:00 02/06/17 22:02 Polyethylene Glycol (Miralax) 17 gm DAILY PO 02/04/17 11:45 02/07/17 09:27 Insulin Human NPH (NovoLIN N INJ) 20 units BID@08,17 SQ 02/06/17 17:00 02/07/17 09:27 Objective Remarks GENERAL: Middle aged female, upright in bed eating breakfast. SKIN: Warm and dry. HEAD: Normocephalic. EYES: No injection or drainage. NECK: Supple, trachea midline. CARDIOVASCULAR: Regular rate and rhythm RESPIRATORY: anterior coker clear on 2L O2 via NC GASTROINTESTINAL: obese abdomen, no tenderness to palpation. EXTREMITIES: No cyanosis NEUROLOGICAL: awake and alert, normal speech. moving all extremities. Assessment/Plan Problem List: (1) Metastatic adenocarcinoma of unknown origin Status: Acute Plan: --s/p paracentesis with removal 7.1 liters of cloudy yellowish fluid--> Cytology +adenocarcinoma. Hepatitis panel was negative. --CA-125 is slightly elevated at 348 which is nonspecific. --Alpha-fetoprotein, CEA and CA19-9 were all normal. --CT ab/pelvis: no definite mass. --CT chest: no mass --ex lap, 02/01 showed carcinomatosis, pathology shows adenocarcinoma of ovarian , endometrium or cervix origin Assessment 62y/o female with new onset ascites suspicious for malignancy. --history of cervical cancer treated with radiation and chemotherapy in 2003. --Diabetes mellitus. recurrent urinary tract infection. Hypertension --Nephropathy, neuropathy and retinopathy. Right eye blindness Plan 1. final pathology shows adenocarcinoma likely of CAMP NURSE origin. 2. await CAMP NURSE oncology recommendations given final pathology results--dr. zepeda will d/w Dr. hightower 3. continue supportive care Attending Statement The exam, history, and the medical decision-making described in the above note were completed with the assistance of the mid-level provider. I reviewed and agree with the findings presented. I attest that I had a [id number] encounter with the patient on the same day, and personally performed and documented my assessment and findings in the medical record. No BM yet. 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 Pt is not sure if she wants chemotherapy if it is not curative. Palliative care med is following and try to help clarify goal of care. Miriam Sanchez Feb 07, 2017 09:57 Zhen Zepeda MD Feb 07, 2017 15:50
[2017-02-07] MEDS: ENOXAPARIN SODIUM 40 MG/0.4 ML SYRINGE SQ SCH (12:17)
--- NOTE | 2017-02-07 14:41 | HHI.PR ---
Subjective Remarks Complaint of constipation today. Omentum Pathology shows adenocarcinoma. No other complaints patient. We discussed possibility of discharge to prison facility if her ambulation does not improve. She is agreeable to discharge to a prison facility. Objective Vital Signs Date Time Temp Pulse Resp B/P Pulse Ox O2 Delivery O2 Flow Rate FiO2 02/07/17 12:00 97.6 88 19 140/56 95 02/07/17 11:32 95 Nasal Cannula 3.00 02/07/17 09:35 Nasal Cannula 2.00 02/07/17 08:00 97.3 75 19 119/59 94 02/07/17 04:00 95.4 76 18 116/55 92 02/07/17 01:51 96.8 78 18 118/54 95 02/06/17 20:00 Nasal Cannula 2.00 02/06/17 20:00 95.9 89 17 117/66 95 02/06/17 17:54 Nasal Cannula 3.00 02/06/17 16:00 97.3 86 20 137/61 97 I/O 02/06/17 02/06/17 02/06/17 02/07/17 02/07/17 02/07/17 07:00 15:00 23:00 07:00 15:00 23:00 Intake Total 500 ml 1368 ml 800 ml 1160 ml 2916 ml Output Total 1000 ml 1825 ml 2100 ml Balance 500 ml 368 ml 800 ml -665 ml 816 ml Intake Oral 500 ml 600 ml 360 ml 650 ml IV Total 768 ml 800 ml 800 ml 2266 ml Output Urine Total 1000 ml 525 ml 600 ml Stool Total 1300 ml Drainage Total 1500 ml # Voids 3 2 # Bowel Movements 0 0 Result Diagram: 02/06/17 0545 02/06/17 0545 Objective Remarks GENERAL: NAD, A&Ox3, severe obesity HEAD: Normocephalic. NECK: Supple, trachea midline. No lymphadenopathy. EYES: No scleral icterus. No injection or drainage. CARDIOVASCULAR: Regular rate and rhythm without murmurs, gallops, or rubs. RESPIRATORY: Breath sounds equal bilaterally. No accessory muscle use. GASTROINTESTINAL: Abdomen soft, non-tender, nondistended. MUSCULOSKELETAL: No cyanosis, or edema. SKIN: Warm and dry. NEURO: No focal neurological deficitis. A/P Problem List: (1) Ascites ICD Code: R18.8 (2) Hypoxia ICD Code: R09.02 (3) Abdominal distention ICD Code: R14.0 (4) Umbilical hernia ICD Code: K42.9 Assessment and Plan Assessment and Plan 62-year-old female admitted with hypoxia and abdominal distention related to ascites. Malignancy of suspected malignant adenoma. Blood sugars not controlled. NPH insulin increase 28 units twice a day. Magnesium citrate and a when necessary enema added to treat constipation. Continue physical therapy. Ascites cytology from last paracentesis is positive for malignancy with suspicion for adenoma History of cervical cancer in the past Gynecology following Surgery following GI following Oncology following Follow for recurrence Hypoxia Improving Likely a combination of obesity and ascites Continue oxygen as needed Status post drainage of ascites Wean oxygen as tolerated Urinary tract infection Resolved Treatment completed ARF (acute renal failure) Resolved Chronic kidney disease may be present Follow renal function Diabetes mellitus type 2 Follow blood sugars Insulin sliding scale Diabetic diet NPH SQ BID HTN (hypertension) Follow blood pressures Currently stable No change in present treatment Umbilical hernia Acute phase is likely related to ascites Follow clinically for now She is not a good surgical candidate Constipation As needed laxatives Global weakness Continue physical therapy Discharge plan: Physical therapy ongoing, prison facility versus home health care discharge. Problem Qualifiers (1) Ascites: Qualified Code: R18.0 - Malignant ascites Juan Gallegos MD Feb 07, 2017 14:41
[2017-02-07] MEDS ORDERED: MAGNESIUM CITRATE SOLN 300 ML BTL PO ONE (14:45)
[2017-02-07] MEDS ORDERED: SOD PHOSPHATE/SOD BIPHOSPHATE (ADULT) ENEMA 133ML RECTAL PRN (14:45)
--- NOTE | 2017-02-07 16:08 | HHI.HCPN ---
Reason for visit a. To assist with evaluation and management of symptoms including: abdominal pain; constipation b. To assist medical decision maker(s) with: better understanding of current medical conditions; weighing benefits/burdens of medical treatment options; making medical treatment decisions. . Subjective/Interval History Ms. Zimmer's primary complaint is constipation. The hospitalist saw her just before me and there are no new orders in for Magnesium citrate and then an enema if needed. She denies pain -- she has not needed opiate analgesics since 02/05/17. Patient is now agreeable to rehab at time of discharge and is no longer insisting on going directly home. She reports she is practicing her PT exercises on her own and was able to stand up to the walker with stand-by assistance. Blood sugars have been quite high and she is complaining that there are things on her tray that she does not ask for. No other complaints. Pathology from peritoneum and omentum has come back confirming poorly differentiated adenoCA. Studies suggest gynecologic origin. Patient awaits discussion with gyne/onc regarding treatment options, treatment details (side effects, frequency of visits, etc.), and likely course if she declines treatment. Patient expressed her gratitude for the help she received from the palliative care social sciences professor. VS stable; afebrile. Wound still draining significantly. Voiding well. No bloodwork/imaging today. . Family/friend interactions No conversations today with family/friends. . Advance Directives Living Will: Never completed Durable Power of Ro[employer]: Never completed Advance Directive Specifics Date completed: Refuses to consider completion of advance directives at this time. . Health Care Surrogate(s): No written designation of health care surrogate. . Documented care wishes: No written documentation of health care goals/preferences. . Objective Vital Signs Date Time Temp Pulse Resp B/P Pulse Ox O2 Delivery O2 Flow Rate FiO2 02/07/17 12:00 97.6 88 19 140/56 95 02/07/17 11:32 95 Nasal Cannula 3.00 02/07/17 09:35 Nasal Cannula 2.00 02/07/17 08:00 97.3 75 19 119/59 94 02/07/17 04:00 95.4 76 18 116/55 92 02/07/17 01:51 96.8 78 18 118/54 95 02/06/17 20:00 Nasal Cannula 2.00 02/06/17 20:00 95.9 89 17 117/66 95 02/06/17 17:54 Nasal Cannula 3.00 02/06/17 16:00 97.3 86 20 137/61 97 Intake & Output 02/07/17 02/07/17 07:00 19:00 Intake Total 1960 ml 2916 ml Output Total 1825 ml 2100 ml Balance 135 ml 816 ml Intake Oral 360 ml 650 ml IV Total 1600 ml 2266 ml Output Urine Total 525 ml 600 ml Stool Total 1300 ml Drainage Total 1500 ml # Voids 2 # Bowel Movements 0 . Physical Exam CONSTITUTIONAL/GENERAL: Awake, alert, conversant, morbidly obese, up in chair, no apparent distress. TUBES/LINES/DRAINS: Surgical wound drain. SKIN: No jaundice. Venous stasis skin changes on lower extremities. No wounds seen anteriorly. Skin temperature appropriate. Not diaphoretic. HEAD: Atraumatic. Normocephalic. EYES: Right eye with clouded cornea -- deviates to right. Left pupil round. Extraocular motions intact. No scleral icterus. No injection or drainage. Fundi not examined. ENT: Hearing grossly normal. Nose without bleeding or purulent drainage. Throat without visible erythema, exudates, masses NECK: Trachea midline. Supple, nontender. CARDIOVASCULAR: Regular rate and rhythm without murmurs, gallops, or rubs. No JVD. Peripheral pulses symmetric. RESPIRATORY/CHEST: Symmetric, unlabored respirations. Clear to auscultation. Breath sounds equal bilaterally but diminished at bases. No wheezes, rales, or rhonchi. GASTROINTESTINAL: Abdomen obese, soft, non-tender, nondistended. Surgical wound drain. No hepato-splenomegaly, or palpable masses though difficult to evaluate due to obesity. No guarding. Bowel sounds present. GENITOURINARY: Without palpable bladder distension. MUSCULOSKELETAL: Congenital phocomelia deformity right upper extremity. Extremities without clubbing. Venous stasis changes both lower extremities. LYMPHATICS: Not examined. NEUROLOGICAL: Awake and alert. Motor and sensory grossly within normal limits. Follows commands. Cognitively sharp. Moves all extremities. PSYCHIATRIC: No obvious anxiety/depression. No apparent hallucinations or other psychotic thought process. . Diagnostic Tests Laboratory Laboratory Tests Test 02/05/17 02/06/17 06:45 05:45 White Blood Count 18.6 TH/MM3 16.9 TH/MM3 (4.0-11.0) (4.0-11.0) Red Blood Count 4.34 MIL/MM3 4.46 MIL/MM3 (4.00-5.30) (4.00-5.30) Hemoglobin 13.9 GM/DL 14.1 GM/DL (11.6-15.3) (11.6-15.3) Hematocrit 41.7 % 43.1 % (35.0-46.0) (35.0-46.0) Mean Corpuscular Volume 96.1 FL 96.6 FL (80.0-100.0) (80.0-100.0) Mean Corpuscular Hemoglobin 31.9 PG 31.7 PG (27.0-34.0) (27.0-34.0) Mean Corpuscular Hemoglobin 33.2 % 32.8 % Concent (32.0-36.0) (32.0-36.0) Red Cell Distribution Width 12.5 % 12.8 % (11.6-17.2) (11.6-17.2) Platelet Count 249 TH/MM3 259 TH/MM3 (150-450) (150-450) Mean Platelet Volume 9.6 FL 10.6 FL (7.0-11.0) (7.0-11.0) Sodium Level 131 MEQ/L 132 MEQ/L (136-145) (136-145) Potassium Level 4.8 MEQ/L 5.0 MEQ/L (3.5-5.1) (3.5-5.1) Chloride Level 93 MEQ/L 95 MEQ/L (98-107) (98-107) Carbon Dioxide Level 32.6 MEQ/L 31.0 MEQ/L (21.0-32.0) (21.0-32.0) Anion Gap 5 MEQ/L (5-15) 6 MEQ/L (5-15) Blood Urea Nitrogen 27 MG/DL (7-18) 26 MG/DL (7-18) Creatinine 1.10 MG/DL 1.01 MG/DL (0.50-1.00) (0.50-1.00) Estimat Glomerular Filtration 50 ML/MIN (>89) 55 ML/MIN (>89) Rate Random Glucose 179 MG/DL 267 MG/DL (74-106) (74-106) Calcium Level 8.5 MG/DL 8.2 MG/DL (8.5-10.1) (8.5-10.1) Hematology Comments . Result Diagram: 02/06/17 0545 02/06/17 0545 Imaging Last Impressions Chest CT 01/31/17 0000 Signed Impressions: Service Date/Time: January 10:06 - CONCLUSION: 1. No discrete mass lesion identified. 2. Minimal bibasilar effusions with atelectatic changes in the lung bases. 3. No significant adenopathy. Juan Pleitez MD Abdomen X-Ray 01/28/17 0600 Signed Impressions: Service Date/Time: Saturday, January 28, 2017 15:13 - CONCLUSION: No definite bowel dilatation or free air is seen. Sriram Sunshine MD Cyst Biopsy Asp-Paracentesis US 01/27/17 0000 Signed Impressions: Service Date/Time: Friday, January 27, 2017 11:00 - CONCLUSION: Uncomplicated ultrasound guided paracentesis. Juan Pleitez MD Abdomen/Pelvis CT 01/26/17 1349 Signed Impressions: Service Date/Time: Thursday, January 26, 2017 14:38 - CONCLUSION: 1. Moderate to large amount of ascites without definitive etiology identified on CT. No definitive mesenteric mass or hepatic volume loss. Evaluation of the mesentery and liver are however limited due to lack of IV contrast. 2. Periumbilical anterior bowel wall hernia containing fat and ascites fluid. Myke Kendall MD ADDENDUM: Reexamination of the pelvic CT exam does demonstrate a small uterus which appears unremarkable by CT. The uterus was originally reported as surgically absent. Myke Kendall MD Chest X-Ray 01/26/17 1155 Signed Impressions: Service Date/Time: Thursday, January 26, 2017 12:13 - CONCLUSION: Underinflated examination with atelectasis at the bases. No acute finding is identified. Sriram Paul MD Renal Ultrasound 01/26/17 0000 Signed Impressions: Service Date/Time: Thursday, January 26, 2017 17:59 - CONCLUSION: Ultrasound appearance of the kidneys and urinary bladder within normal limits. Sriram Kaufman MD . Procedures * Paracentesis * 02/01/17-- diagnostic laparoscopy; paracentesis; and biopsy of the peritoneum and omentum . Other * Path from omentum / peritoneal biopsy shows poorly differentiated Adeno-CA most consistent with gyne origin. . Assessment and Plan Disease Oriented Problem List: (1) Metastatic adenocarcinoma of unknown origin Comment: Abdominal carcinomatosis is present. Ascitis fluid positive for malignant cells. Path from omentum/peritoneum shows poorly differentiated Adeno- CA most consistent with gyne origin. . . (2) Abdominal distention Comment: Likely caused by ascites. . (3) Ascites (4) Urinary tract infection Comment: Culture positive for gar-sensitive E coli. ./ (5) DM2 (diabetes mellitus, type 2) Comment: Poorly controlled. . (6) ARF (acute renal failure) Comment: Improved with hydration. . (7) Umbilical hernia (8) HTN (hypertension) (9) Hypoxia Symptom Scale: (1) Pain 0-10 Scale: 0 Comment: Pain has been mostly abdominal (most likely from ascitic distension. Improved with paracentesis. Has not needed opiates since 02/05/17. . (2) Constipation 0-10 Scale: Unable to quantify Comment: No BM since 01/31. Plenty of PRN meds already ordered to address this. Will need to see if this might be from the disease or meds or other. . Pertinent Non-Medical Issues Psychosocial: Socially isolated. Lives alone. Only has some casual friends locally. . No surviving children (son in "hit and run" accident in 1974). Surviving sister she does not speak with in [place]. Surviving brother she does stay in touch with in [place]. Spiritual: Hinduism. Well versed in the bible. Used to be very active in orthodoxy but no longer. Has not orthodoxy people who visit her. Legal: Refused to consider writing advance directives at this time. Ethical issues impacting care: Capacitated to make her own health care decisions. Should she become incapacitated, proxy decision making would fall equally to her brother and sister. . Important Contacts Lolis Aldana (friend) [phone] . Prognosis Prognosis remains uncertain without knowing origin of metastatic disease and likelihood of response to anti-cancer treatments. Should patient choose to forego further cancer directed treatments or no good options are available, life expectancy is probably in the order of weeks to months and she would be a candidate for hospice. . Code Status: Full Code Plan == Code Status: Full Code == Decision maker: Patient is capacitated to make her own health care decisions. She refused to consider designating anyone at this time to serve as a health care surrogate should she become incapacitated. Under [place] statutes, her surviving brother and sister would become co-proxies if she does not select a surrogate. == Goals of medical treatment: Patient is focused on taking care of several financial affairs before she gives any consideration to treatment options. She wants to make her own arrangements, complete a will , assign a beneficiary for her life insurance policy, etc. Once that is accomplished, she is open to hearing about the benefits/burdens of treatment options and deciding whether or not she wants active treatments. She is not interested in hospice at this time. She initially wanted only to return home, but is now open to rehab. == Pain: Her only pre-hospital pain syndrome was from her abdominal distension and ascites. This has mostly resolved with paracentesis and the drain. She was using about 1 [place] 3-325 daily which appeared to be working. There is an order available for IV morphine if needed which she has not used. She has not required opiate analgesia since 02/05/17. Patient says that morphine disagrees with her and does not want to use it. Recommend that it be discontinued. No further recommendations at this time. == Constipation: Last bowel movement was 01/31/17 per nursing noted. Patient has orders for PRN astrid-colace; miralax; milk of magnesia; senna; bisacodyl suppository; and lactulose. Has been using the Miralax and Astrid-colace regularly. New orders today for magnesium citrate and then an enema if needed. No further recommendations at this time. == Disposition: Patient wants to go home, but she lives alone, has no local family, and has no dependable friends. She can stand to a walker but is not yet safely ambulatory at this time. She does not want to go back to [place] where she does have some family. It's hard for me to imagine her caring for herself in her current condition. As of 02/07/17 she is amenable to rehab following this hospitalization. == Further planning will depend on cancer treatment options and whether or not patient chooses to pursue active treatment. Await discussion with gyne/onc. == Will continue to discuss the importance of designating a health care surrogate as under [place] law , her sister, who she does not even speak with, will have equal decision making authority as her brother should she become incapacitated. == Palliative care will continue to follow to assist with symptom management and to further clarify goals of medical treatment as the clinical course evolves. . Attestation To help prompt me to consider important information that might be impacting today's encounter and assessment, information from prior notes written by myself or my colleagues may have been "brought forward" into today's note. My signature on this note, however, is an attestation that I personally performed the exam, history, and/or decision-making noted today, and, unless otherwise indicated, the interactions with patient, family, and staff as well as the review of records all occurred today. I also attest that the listed assessment and stated plan reflect my best clinical judgment today based on the combination of historical information, prior notes, and today's exam/ interactions. When time spent is documented, it refers only to time spent today by the signer, or if indicated, combined time spent today by collaborating physician/nurse practitioner. . Yomi Lipscomb MD Feb 07, 2017 16:08
[2017-02-07] MEDS: cefTRIAXone INJ 1,000 MG in SODIUM CHLORIDE 0.9% INJ 100 ML IV SCH (16:22)
[2017-02-07] MEDS: LACTULOSE SYRUP 20 GM/30 ML CUP PO PRN (16:22)
[2017-02-07] MEDS: ALPRAZolam 0.5 MG TAB PO PRN (16:24)
[2017-02-07] MEDS ORDERED: INSULIN HUMAN NPH 1,000 UNITS/10 ML VIAL SQ SCH (17:00)
[2017-02-07] MEDS: ONDANSETRON HCL 4 MG/2 ML VIAL IVP PRN (18:17)
[2017-02-08] VITALS (7 sets, daily range): BP systolic 93–122; BP diastolic 46–58; PULSE 79–88; RESP 18–22; TEMP 96.4–99; O2SAT 90–95
[2017-02-08] MEDS: INSULIN ASPART SUPPLEMENTAL SCALE SQ SCH ×4 (07:00→21:56)
[2017-02-08] MEDS: SODIUM CHLOR 0.9% 1000 ML INJ 1,000 ML IV SCH ×2 (08:00→21:39)
[2017-02-08] MEDS: NYSTATIN 100,000 U/GM PWD 15 GM BTL TOPICAL SCH ×2 (09:00→22:15)
[2017-02-08] MEDS: TIMOLOL MALEATE 0.5% OPHT SOLN 5 ML BTL EACH EYE SCH ×2 (09:00→21:38)
--- NOTE | 2017-02-08 09:38 | PD.ONC.PN ---
Subjective Subjective Remarks Afebrile overnight. patient resting in bed in nad. constipated. no bm in several days. Objective Data Date Time Temp Pulse Resp B/P Pulse Ox O2 Delivery O2 Flow Rate FiO2 02/08/17 08:00 96.9 79 18 122/56 94 02/08/17 00:00 97.4 88 22 100/54 95 02/07/17 20:10 92 21 02/07/17 20:00 97.2 99 22 107/66 92 02/07/17 20:00 95 Nasal Cannula 2.00 02/07/17 16:00 97.2 93 19 132/55 93 02/07/17 12:00 97.6 88 19 140/56 95 02/07/17 11:32 95 Nasal Cannula 3.00 02/07/17 09:35 Nasal Cannula 2.00 02/08/17 02/08/17 02/08/17 07:00 15:00 23:00 Intake Total 120 ml Output Total 0 ml Balance 120 ml Result Diagram: 02/06/17 0545 02/06/1745 Administered Medications Medications (Trade) Dose Ordered Sig/Rigoberto Route PRN Reason Start Time Stop Time Status Last Admin Dose Admin Alprazolam (Xanax) 0.5 mg Q8H PRN PO ANXIETY 01/26/17 16:15 02/07/17 16:24 Brimonidine Tartrate (Alphagan 0.2% Opth Soln) 1 drop BID EACH EYE 01/26/17 21:00 02/07/17 20:42 Glyburide (Diabeta) 5 mg DAILY PO 01/27/17 09:00 Hold 01/29/17 08:54 Timolol Maleate (Timoptic 0.5% Opth Soln) 1 drop BID EACH EYE 01/26/17 21:00 02/07/17 20:43 Carvedilol 12.5 mg 12.5 mg Q12HR PO 01/28/17 13:52 02/06/17 21:59 Ceftriaxone Sodium/Sodium Chloride (Rocephin Inj/NS Inj) 100 ml @ 200 mls/hr Q24H IV 01/29/17 18:00 02/07/17 16:22 Enoxaparin Sodium (Lovenox Inj) 40 mg Q24H SQ 01/29/17 12:00 02/07/17 12:17 Nystatin (Mycostatin Powder) 1 applic Q12HR TOPICAL 02/01/17 21:00 02/07/17 20:43 Acetaminophen/ Hydrocodone Bitart 1 tab 1 tab Q4H PRN PO PAIN SCALE 1 TO 5 02/01/17 15:30 02/05/17 10:23 Sodium Chloride (NS 1000 ml Inj) 1,000 ml @ 100 mls/hr Q10H IV 02/02/17 10:59 02/07/17 20:37 Sodium Chloride (NS Flush) 2 ml BID IV FLUSH 02/02/17 21:00 02/07/17 20:43 Ondansetron HCl (Zofran Inj) 4 mg Q6H PRN IVP NAUSEA OR VOMITING 02/02/17 11:00 02/07/17 18:17 Senna/Docusate Sodium (Astrid-Colace) 1 tab BID PO 02/02/17 21:00 02/07/17 20:37 Magnesium Hydroxide (Milk Of Magnesia Liq) 30 ml Q12H PRN PO MILD - MODERATE CONSTIPATION 02/02/17 11:00 02/07/17 09:27 Sennosides (Senokot) 17.2 mg Q12H PRN PO MODERATE - SEVERE CONSTIPATION 02/02/17 11:00 02/06/17 22:02 Lactulose (Lactulose Liq) 30 ml DAILY PRN PO SEVERE CONSITIPATION 02/02/17 11:00 02/07/17 16:22 Polyethylene Glycol (Miralax) 17 gm DAILY PO 02/04/17 11:45 02/07/17 09:27 Sodium Biphosphate/ Sodium Phosphate (Fleets Enema (Adult)) 133 ml UNSCH PRN RECTAL CONSTIPATION 02/07/17 14:45 02/08/17 05:23 Objective Remarks GENERAL: Middle aged female, supine in bed in [facility]. SKIN: Warm and dry. HEAD: Normocephalic. EYES: No injection or drainage. NECK: Supple, trachea midline. CARDIOVASCULAR: Regular rate and rhythm RESPIRATORY: anterior coker with occasional rhonchi. GASTROINTESTINAL: obese abdomen, non-tender. EXTREMITIES: No cyanosis NEUROLOGICAL: awake and alert, normal speech. moving all extremities. Assessment/Plan Problem List: (1) Metastatic adenocarcinoma of unknown origin Status: Acute Plan: --s/p paracentesis with removal 7.1 liters of cloudy yellowish fluid--> Cytology +adenocarcinoma. Hepatitis panel was negative. --CA-125 is slightly elevated at 348 which is nonspecific. --Alpha-fetoprotein, CEA and CA19-9 were all normal. --CT ab/pelvis: no definite mass. --CT chest: no mass --ex lap, 02/01 showed carcinomatosis, pathology shows adenocarcinoma of ovarian , endometrium or cervix origin Assessment 62y/o female with new onset ascites suspicious for malignancy. --history of cervical cancer treated with radiation and chemotherapy in 2003. --Diabetes mellitus. recurrent urinary tract infection. Hypertension --Nephropathy, neuropathy and retinopathy. Right eye blindness Plan 1. continue supportive care 2. await Mr. Tinoco recommendations Attending Statement The exam, history, and the medical decision-making described in the above note were completed with the assistance of the mid-level provider. I reviewed and agree with the findings presented. I attest that I had a [id number] encounter with the patient on the same day, and personally performed and documented my assessment and findings in the medical record. Patient in better mood today. 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 Today she expressed wish to try chemotherapy and states "she is not ready to give up yet". is following her and he will make the final recommendation. No other recommendation from Med onc at this time and I will sign of.. Miriam Sanchez Feb 08, 2017 09:38 Zhen Zepeda MD Feb 08, 2017 16:55
--- NOTE | 2017-02-08 09:38 | HHI.PR ---
Subjective Remarks Mild benefit and constipation from magnesium citrate and laxative. She did get nausea with magnesium citrate and vomited. She needs improvement in her constipation and blood sugars prior to discharge. At this point chemotherapy is preferred by the patient that this will occur as an outpatient and an inpatient. Once other issues are improved she will discharge to a custodial facility at this point, prior to any return to home. Objective Vital Signs Date Time Temp Pulse Resp B/P Pulse Ox O2 Delivery O2 Flow Rate FiO2 02/08/17 08:00 96.9 79 18 122/56 94 02/08/17 00:00 97.4 88 22 100/54 95 02/07/17 20:10 92 21 02/07/17 20:00 97.2 99 22 107/66 92 02/07/17 20:00 95 Nasal Cannula 2.00 02/07/17 16:00 97.2 93 19 132/55 93 02/07/17 12:00 97.6 88 19 140/56 95 02/07/17 11:32 95 Nasal Cannula 3.00 I/O 02/07/17 02/07/17 02/07/17 02/08/17 02/08/17 02/08/17 07:00 15:00 23:00 07:00 15:00 23:00 Intake Total 1160 ml 2916 ml 791 ml 120 ml Output Total 1825 ml 2100 ml 500 ml 0 ml Balance -665 ml 816 ml 291 ml 120 ml Intake Oral 360 ml 650 ml 120 ml 120 ml IV Total 800 ml 2266 ml 671 ml Output Urine Total 525 ml 600 ml 100 ml 0 ml Stool Total 1300 ml 0 ml 0 ml Drainage Total 1500 ml 400 ml # Voids 2 # Bowel Movements 0 Result Diagram: 02/06/17 0545 02/06/17 0545 Objective Remarks GENERAL: NAD, A&Ox3, severe obesity HEAD: Normocephalic. NECK: Supple, trachea midline. No lymphadenopathy. EYES: No scleral icterus. No injection or drainage. CARDIOVASCULAR: Regular rate and rhythm without murmurs, gallops, or rubs. RESPIRATORY: Breath sounds equal bilaterally. No accessory muscle use. GASTROINTESTINAL: Abdomen soft, non-tender, nondistended. MUSCULOSKELETAL: No cyanosis, or edema. SKIN: Warm and dry. NEURO: No focal neurological deficitis. A/P Problem List: (1) Ascites ICD Code: R18.8 (2) Hypoxia ICD Code: R09.02 (3) Abdominal distention ICD Code: R14.0 (4) Umbilical hernia ICD Code: K42.9 Assessment and Plan Assessment and Plan 62-year-old female admitted with hypoxia and abdominal distention related to ascites. Malignancy of suspected malignant adenoma. Blood sugars not controlled. NPH insulin increase 35 units twice a day. Repeat enema. Continue physical therapy. Patient given options for custodial facilities in the area. Ascites cytology from last paracentesis is positive for malignancy with suspicion for adenoma History of cervical cancer in the past Gynecology following Surgery following GI following Oncology following Follow for recurrence Hypoxia Improving Likely a combination of obesity and ascites Continue oxygen as needed Status post drainage of ascites Wean oxygen as tolerated Urinary tract infection Resolved Treatment completed ARF (acute renal failure) Resolved Chronic kidney disease may be present Follow renal function Diabetes mellitus type 2 Follow blood sugars Insulin sliding scale Diabetic diet NPH SQ BID HTN (hypertension) Follow blood pressures Currently stable No change in present treatment Umbilical hernia Acute phase is likely related to ascites Follow clinically for now She is not a good surgical candidate Constipation As needed laxatives Global weakness Continue physical therapy Discharge plan: Physical therapy ongoing, custodial facility versus home health care discharge. Problem Qualifiers (1) Ascites: Qualified Code: R18.0 - Malignant ascites Juan Gallegos MD Feb 08, 2017 09:38
--- NOTE | 2017-02-08 09:42 | MB ---
cc: GREGORY ROMERO M.D., BEATRICE S. M.D. MOLPUS, KELLY L. MD ZIMMERMAN, RAUL L. M.D. CHEW, BOON Y. M.D. DATE OF CONSULTATION: 02/08/2017 REASON FOR CONSULTATION: Follow up consultation discussion with Janki Zimmer. She is seen this morning, accompanied by our nurse practitioner (Symone Grant) I explained that the biopsy results did confirm an adenocarcinoma. The way it appears under the microscope and a way it stains favors a gynecologic origin, although the exact origin may never be determined with certainty. Included in the differential given the carcinomatous presentation with ascites, elevated CA-125 is a primary peritoneal cancer or ovarian cancer less likely but still possible is a recurrence of her cervical cancer from 14 years ago if in fact her cervical cancer was an adenocarcinoma and this remains uncertain. Given that there is not a large burden of tumor in the pelvis or ovarian masses, but extensive carcinomatous implants throughout the surface of all essentially all visceral and parietal surfaces this may well represent a primary peritoneal cancer. We explained why surgery is not the best way to approach this problem but in fact chemotherapy is recommended. An introductory overview of Taxol and carboplatin as a standard the recommendations were discussed. Alternative single-agent or less aggressive measurements were possible and a brief comparison of the side effects were included. We must take into account her personal preference and performance status which at the present time is quite diminished. To determine what regimen and will and/or dosing she may be able to tolerate, to find the right balance of benefit with minimal morbidity. She is philosophically in favor of treatment. She does not wish for Hospice consultation. I explained we will ensure that she has an appointment with me approximately within 1 week after hospital discharge. Once her hospital issues have been resolved and she is shifted to an outpatient, we can see her for follow up and more extensive chemo discussion chemotherapy teaching and treatment planning. Discussion ensued questions were answered. It appears as though possibly intraperitoneal drain has stopped draining ascites may be blocked. I explained that even if his drains is not working and it may need to be removed that periodic paracentesis can be performed to alleviate symptomatic ascites until the hopeful response of chemotherapy to help dry up in resolve ascites with ongoing treatment can occur. More questions were answered. She expressed good understanding and we look forward to seeing her in our office on the outpatient setting, at the present time her performance status is such that it do not believe she is ready for inpatient chemotherapy. MD PAZ Lizama/eleonora /8:55 AM /9:33 AM
[2017-02-08] MEDS ORDERED: SOD PHOSPHATE/SOD BIPHOSPHATE (ADULT) ENEMA 133ML RECTAL PRN (09:45)
[2017-02-08] MEDS: POLYETHYLENE GLYCOL 17 GM PKG PO SCH (10:52)
[2017-02-08] MEDS: CARVEDILOL 12.5 MG TAB PO SCH ×2 (10:52→21:38)
[2017-02-08] MEDS: DOCUSATE SODIUM 50 MG/SENNA 8.6 MG TAB PO SCH ×2 (10:52→21:39)
[2017-02-08] MEDS: BRIMONIDINE TARTRATE 0.2% OPHT SOLN 5 ML BTL EACH EYE SCH ×2 (10:53→21:39)
[2017-02-08] MEDS: SODIUM CHLORIDE 0.9% FLUSH 10 ML FLUSH IV FLUSH SCH ×2 (10:54→21:38)
[2017-02-08] MEDS: ENOXAPARIN SODIUM 40 MG/0.4 ML SYRINGE SQ SCH (14:24)
--- NOTE | 2017-02-08 15:13 | HHI.HCPN ---
Met with Ms. Zimmer. She is currently eating lunch, expresses some dissatisfaction with not receiving food all day. No other concerns at this time. Ms. Zimmer is alert, able to make needs known, and pleasant throughout conversation. She reports she was able to speak with Dr. Tinoco and wishes to move forward with chemotherapy. Verbalizes agreement to discharge to SNF when medically stable and ready. Desires [facility] because it is close to her home. States she was able to have a BM but "it was extremely hard". Expressed gratitude for palliative care supportive visits. Did not wish to further discuss any affairs to wishes to get in order at this time. Remains hopeful to eventually get back home and take care of things. Palliative care will continue to follow throughout hospitalization. Ute Marte, MECHANICAL STRIPER Feb 08, 2017 15:13
[2017-02-08] MEDS ORDERED: INSULIN HUMAN NPH 1,000 UNITS/10 ML VIAL SQ SCH (17:00)
[2017-02-08] MEDS: cefTRIAXone INJ 1,000 MG in SODIUM CHLORIDE 0.9% INJ 100 ML IV SCH (18:29)
[2017-02-08] MEDS: LACTULOSE SYRUP 20 GM/30 ML CUP PO PRN (21:41)
[2017-02-09] VITALS: BP 104/46; PULSE 86; RESP 20; TEMP 97.2; O2SAT 95
[2017-02-09] MEDS: SODIUM CHLOR 0.9% 1000 ML INJ 1,000 ML IV SCH ×3 (06:10→21:04)
[2017-02-09] MEDS: INSULIN ASPART SUPPLEMENTAL SCALE SQ SCH ×4 (06:16→21:02)
[2017-02-09 08:00] VITALS: BP 127/68; PULSE 88; RESP 16; TEMP 98.3; O2SAT 95
[2017-02-09] MEDS: POLYETHYLENE GLYCOL 17 GM PKG PO SCH (08:36)
[2017-02-09] MEDS: NYSTATIN 100,000 U/GM PWD 15 GM BTL TOPICAL SCH ×2 (08:37→21:04)
[2017-02-09] MEDS: DOCUSATE SODIUM 50 MG/SENNA 8.6 MG TAB PO SCH ×2 (08:37→21:00)
[2017-02-09] MEDS: SODIUM CHLORIDE 0.9% FLUSH 10 ML FLUSH IV FLUSH SCH ×2 (08:38→21:03)
[2017-02-09] MEDS: CARVEDILOL 12.5 MG TAB PO SCH ×2 (08:38→21:00)
[2017-02-09] MEDS: BRIMONIDINE TARTRATE 0.2% OPHT SOLN 5 ML BTL EACH EYE SCH ×2 (08:38→21:00)
[2017-02-09] MEDS: TIMOLOL MALEATE 0.5% OPHT SOLN 5 ML BTL EACH EYE SCH ×2 (08:39→21:00)
--- NOTE | 2017-02-09 10:37 | HHI.PR ---
Subjective Remarks All bowel movements are occurring now, mostly with enema administration. Blood sugars are not yet controlled. Patient is not ambulating well. She will need prison facility at discharge. Monitoring output from abdominal drain. Low output for now. Objective Vital Signs Date Time Temp Pulse Resp B/P Pulse Ox O2 Delivery O2 Flow Rate FiO2 02/09/17 08:00 98.3 88 16 127/68 95 02/09/17 04:00 Nasal Cannula 2.00 02/09/17 00:00 97.2 86 20 104/46 95 02/09/17 00:00 Nasal Cannula 2.00 02/08/17 20:00 99.0 80 20 93/46 92 02/08/17 20:00 Nasal Cannula 2.00 02/08/17 17:39 95 21 02/08/17 16:00 97.0 84 19 114/58 95 02/08/17 14:10 93 02/08/17 12:00 96.4 83 19 105/54 90 I/O 02/08/17 02/08/17 02/08/17 02/09/17 02/09/17 02/09/17 07:00 15:00 23:00 07:00 15:00 23:00 Intake Total 120 ml 0 ml 1530 ml 854 ml Output Total 0 ml 225 ml 0 ml Balance 120 ml 0 ml 1305 ml 854 ml Intake Oral 120 ml 0 ml 240 ml 120 ml IV Total 1290 ml 734 ml Output Urine Total 0 ml 225 ml Stool Total 0 ml Drainage Total 0 ml 0 ml # Voids 1 1 # Bowel Movements 1 0 1 Result Diagram: 02/06/17 0545 02/06/17 0545 Objective Remarks GENERAL: NAD, A&Ox3, severe obesity HEAD: Normocephalic. NECK: Supple, trachea midline. No lymphadenopathy. EYES: No scleral icterus. No injection or drainage. CARDIOVASCULAR: Regular rate and rhythm without murmurs, gallops, or rubs. RESPIRATORY: Breath sounds equal bilaterally. No accessory muscle use. GASTROINTESTINAL: Abdomen soft, non-tender, nondistended. Right-sided abdominal drain. MUSCULOSKELETAL: No cyanosis, or edema. SKIN: Warm and dry. NEURO: No focal neurological deficitis. A/P Problem List: (1) Ascites ICD Code: R18.8 (2) Hypoxia ICD Code: R09.02 (3) Abdominal distention ICD Code: R14.0 (4) Umbilical hernia ICD Code: K42.9 Assessment and Plan Assessment and Plan 62-year-old female admitted with hypoxia and abdominal distention related to ascites. Malignancy of suspected malignant adenoma. Blood sugars not controlled. NPH insulin increase 40 units at night and 50 units in the morning. Continue physical therapy. Continue monitoring output of drain. Daily enemas as needed for constipation. Ascites cytology from last paracentesis is positive for malignancy with suspicion for adenoma History of cervical cancer in the past Gynecology following Surgery following GI following Oncology following Follow for recurrence Hypoxia Improving Likely a combination of obesity and ascites Continue oxygen as needed Status post drainage of ascites Wean oxygen as tolerated Urinary tract infection Resolved Treatment completed ARF (acute renal failure) Resolved Chronic kidney disease may be present Follow renal function Diabetes mellitus type 2 Follow blood sugars Insulin sliding scale Diabetic diet NPH SQ BID HTN (hypertension) Follow blood pressures Currently stable No change in present treatment Umbilical hernia Acute phase is likely related to ascites Follow clinically for now She is not a good surgical candidate Constipation As needed laxatives Global weakness Continue physical therapy Discharge plan: Physical therapy ongoing, prison facility versus home health care discharge. Problem Qualifiers (1) Ascites: Qualified Code: R18.0 - Malignant ascites Juan Gallegos MD Feb 09, 2017 10:37 am
[2017-02-09] MEDS: ENOXAPARIN SODIUM 40 MG/0.4 ML SYRINGE SQ SCH (13:04)
[2017-02-09 16:00] VITALS: BP 129/64; PULSE 87; RESP 16; TEMP 95.9; O2SAT 94
[2017-02-09] MEDS: cefTRIAXone INJ 1,000 MG in SODIUM CHLORIDE 0.9% INJ 100 ML IV SCH (16:11)
[2017-02-09] MEDS ORDERED: INSULIN HUMAN NPH 1,000 UNITS/10 ML VIAL SQ SCH ×2 (17:00)
[2017-02-09 20:00] VITALS: BP 100/49; PULSE 82; RESP 17; TEMP 97.3; O2SAT 96
[2017-02-10] MEDS: INSULIN ASPART SUPPLEMENTAL SCALE SQ SCH ×4 (05:04→22:05)
[2017-02-10 08:00] VITALS: BP 99/52; PULSE 89; RESP 16; TEMP 97.1; O2SAT 96
[2017-02-10] MEDS ORDERED: INSULIN HUMAN NPH 1,000 UNITS/10 ML VIAL SQ SCH ×2 (08:00)
[2017-02-10] MEDS: POLYETHYLENE GLYCOL 17 GM PKG PO SCH (08:07)
[2017-02-10] MEDS: SODIUM CHLORIDE 0.9% FLUSH 10 ML FLUSH IV FLUSH SCH (08:08)
[2017-02-10] MEDS: CARVEDILOL 12.5 MG TAB PO SCH ×2 (08:08→21:00)
[2017-02-10] MEDS: BRIMONIDINE TARTRATE 0.2% OPHT SOLN 5 ML BTL EACH EYE SCH ×2 (08:09→21:00)
[2017-02-10] MEDS: TIMOLOL MALEATE 0.5% OPHT SOLN 5 ML BTL EACH EYE SCH ×2 (08:12→21:00)
[2017-02-10] MEDS: NYSTATIN 100,000 U/GM PWD 15 GM BTL TOPICAL SCH ×2 (08:12→22:31)
[2017-02-10] MEDS: SODIUM CHLOR 0.9% 1000 ML INJ 1,000 ML IV SCH (08:59)
[2017-02-10] MEDS: DOCUSATE SODIUM 50 MG/SENNA 8.6 MG TAB PO SCH ×2 (09:00→22:23)
--- NOTE | 2017-02-10 09:56 | HHI.PR ---
Subjective Remarks Minimal rectal output. Blood sugars improving, but not yet controlled. Ambulation is not significantly improving. Possible SNF discharge tomorrow if BMs improve and Blood sugars improved. Objective Vital Signs Date Time Temp Pulse Resp B/P Pulse Ox O2 Delivery O2 Flow Rate FiO2 02/10/17 08:00 97.1 89 16 99/52 96 02/09/17 21:08 Nasal Cannula 2.00 02/09/17 20:00 97.3 82 17 100/49 96 02/09/17 16:00 95.9 87 16 129/64 94 I/O 02/09/17 02/09/17 02/09/17 02/10/17 02/10/17 02/10/17 07:00 15:00 23:00 07:00 15:00 23:00 Intake Total 854 ml 1102 ml 975 ml 590 ml Output Total 0 ml 0 ml 600 ml 250 ml Balance 854 ml 1102 ml 375 ml 340 ml Intake Oral 120 ml 340 ml 240 ml 240 ml IV Total 734 ml 762 ml 735 ml 350 ml Output Urine Total 600 ml 250 ml Drainage Total 0 ml 0 ml 0 ml # Voids 1 4 # Bowel Movements 1 0 Result Diagram: 02/06/1745 02/06/17544 Objective Remarks GENERAL: NAD, A&Ox3, severe obesity HEAD: Normocephalic. NECK: Supple, trachea midline. No lymphadenopathy. EYES: No scleral icterus. No injection or drainage. CARDIOVASCULAR: Regular rate and rhythm without murmurs, gallops, or rubs. RESPIRATORY: Breath sounds equal bilaterally. No accessory muscle use. GASTROINTESTINAL: Abdomen soft, non-tender, nondistended. Right-sided abdominal drain. MUSCULOSKELETAL: No cyanosis, or edema. SKIN: Warm and dry. NEURO: No focal neurological deficitis. A/P Problem List: (1) Ascites ICD Code: R18.8 (2) Hypoxia ICD Code: R09.02 (3) Abdominal distention ICD Code: R14.0 (4) Umbilical hernia ICD Code: K42.9 Assessment and Plan Assessment and Plan 62-year-old female admitted with hypoxia and abdominal distention related to ascites. Malignancy of suspected malignant adenoma. Blood sugars not controlled, but improving. NPH insulin increase 45 units at night and 65 units in the morning. Continue physical therapy. Continue monitoring output of drain. Daily enemas as needed for constipation. Ascites cytology from last paracentesis is positive for malignancy with suspicion for adenoma History of cervical cancer in the past Gynecology following Surgery following GI following Oncology following Follow for recurrence Hypoxia Improving Likely a combination of obesity and ascites Continue oxygen as needed Status post drainage of ascites Wean oxygen as tolerated Urinary tract infection Resolved Treatment completed ARF (acute renal failure) Resolved Chronic kidney disease may be present Follow renal function Diabetes mellitus type 2 Follow blood sugars Insulin sliding scale Diabetic diet NPH SQ BID HTN (hypertension) Follow blood pressures Currently stable No change in present treatment Umbilical hernia Acute phase is likely related to ascites Follow clinically for now She is not a good surgical candidate Constipation As needed laxatives Global weakness Continue physical therapy Discharge plan: Physical therapy ongoing. SNF at discharge. Will need better blood sugar control and improved bowel movements. Problem Qualifiers (1) Ascites: Qualified Code: R18.0 - Malignant ascites Juan Galelgos MD Feb 10, 2017 09:56
[2017-02-10] MEDS: ENOXAPARIN SODIUM 40 MG/0.4 ML SYRINGE SQ SCH (11:56)
[2017-02-10 12:00] VITALS: BP 110/55; PULSE 101; RESP 16; TEMP 96.5; O2SAT 93
[2017-02-10 16:00] VITALS: BP 111/57; PULSE 90; RESP 16; TEMP 98; O2SAT 90
[2017-02-10] MEDS: INSULIN HUMAN NPH 1,000 UNITS/10 ML VIAL SQ SCH (16:37)
[2017-02-10 19:45] VITALS: O2SAT 92
[2017-02-10 20:00] VITALS: BP 128/68; PULSE 88; RESP 20; TEMP 97.7; O2SAT 94
[2017-02-11] VITALS: BP 123/58; PULSE 91; RESP 19; TEMP 97.8; O2SAT 95
[2017-02-11] MEDS: ALPRAZolam 0.5 MG TAB PO PRN (01:25)
[2017-02-11] MEDS: INSULIN ASPART SUPPLEMENTAL SCALE SQ SCH ×4 (05:01→20:43)
[2017-02-11 08:00] VITALS: BP 103/99; PULSE 94; RESP 16; TEMP 97.1; O2SAT 94
[2017-02-11] MEDS ORDERED: INSULIN HUMAN NPH 1,000 UNITS/10 ML VIAL SQ SCH (08:00)
[2017-02-11] MEDS: TIMOLOL MALEATE 0.5% OPHT SOLN 5 ML BTL EACH EYE SCH ×2 (09:00→20:45)
[2017-02-11] MEDS: BRIMONIDINE TARTRATE 0.2% OPHT SOLN 5 ML BTL EACH EYE SCH ×2 (09:00→20:45)
[2017-02-11] MEDS: CARVEDILOL 12.5 MG TAB PO SCH ×2 (09:03→20:44)
[2017-02-11] MEDS: POLYETHYLENE GLYCOL 17 GM PKG PO SCH (09:03)
[2017-02-11] MEDS: NYSTATIN 100,000 U/GM PWD 15 GM BTL TOPICAL SCH ×2 (09:03→20:44)
[2017-02-11] MEDS: DOCUSATE SODIUM 50 MG/SENNA 8.6 MG TAB PO SCH ×2 (09:03→20:44)
[2017-02-11 11:06] VITALS: O2SAT 96
[2017-02-11 12:00] VITALS: BP 109/55; PULSE 89; RESP 16; TEMP 97.3; O2SAT 94
[2017-02-11] MEDS: ENOXAPARIN SODIUM 40 MG/0.4 ML SYRINGE SQ SCH (13:12)
[2017-02-11] MEDS ORDERED: SIMETHICONE SUSP DROPS 40 MG/0.6 ML 30 ML BTL PO PRN (15:00)
--- NOTE | 2017-02-11 15:24 | HHI.PR ---
Subjective Remarks Mrs. Zimmer is a 62-year-old female. She was admitted secondary to ascites, UTI, and hypoxia. UTI has resolved. Hypoxia is also resolved. Ascites was discovered to be secondary to metastatic adenoma of the abdomen. Chemotherapy is planned on an outpatient basis. A right abdominal drain his present. Bowel movement occurred yesterday. Blood sugar control improving. Her right abdominal drain has 0 out of for the past 3 days. This may represent obstruction of the drain versus improvement in her ascites. Objective Vital Signs Date Time Temp Pulse Resp B/P Pulse Ox O2 Delivery O2 Flow Rate FiO2 02/11/17 12:00 97.3 89 16 109/55 94 02/11/17 11:06 96 Nasal Cannula 3.00 02/11/17 10:31 Nasal Cannula 2.00 21 02/11/17 08:00 97.1 94 16 103/99 94 02/11/17 00:00 97.8 91 19 123/58 95 02/10/17 21:09 Nasal Cannula 2.00 02/10/17 20:00 97.7 88 20 128/68 94 02/10/17 19:45 92 Nasal Cannula 3.00 02/10/17 16:00 98.0 90 16 111/57 90 I/O 02/10/17 02/10/17 02/10/17 02/11/17 02/11/17 02/11/17 07:00 15:00 23:00 07:00 15:00 23:00 Intake Total 590 ml 120 ml 240 ml 240 ml Output Total 250 ml 0 ml 0 ml Balance 340 ml 120 ml 240 ml 240 ml Intake Oral 240 ml 120 ml 240 ml 240 ml IV Total 350 ml 0 ml Output Urine Total 250 ml Drainage Total 0 ml 0 ml # Voids 2 2 2 # Bowel Movements 1 0 0 Objective Remarks GENERAL: NAD, A&Ox3, severe obesity HEAD: Normocephalic. NECK: Supple, trachea midline. No lymphadenopathy. EYES: No scleral icterus. No injection or drainage. CARDIOVASCULAR: Regular rate and rhythm without murmurs, gallops, or rubs. RESPIRATORY: Breath sounds equal bilaterally. No accessory muscle use. GASTROINTESTINAL: Abdomen soft, non-tender, nondistended. Right-sided abdominal drain. MUSCULOSKELETAL: No cyanosis, or edema. SKIN: Warm and dry. NEURO: No focal neurological deficitis. A/P Problem List: (1) Ascites ICD Code: R18.8 (2) Hypoxia ICD Code: R09.02 (3) Abdominal distention ICD Code: R14.0 (4) Umbilical hernia ICD Code: K42.9 Assessment and Plan Assessment and Plan 62-year-old female admitted with hypoxia and abdominal distention related to ascites. Malignancy of suspected malignant adenoma. Blood sugars not controlled, but improving. NPH insulin increase 50 units at night and 75 units in the morning. Continue when necessary treatments including enema for constipation. Monitor output at abdominal drain. Patient may discharge to senior living facility soon and drainage removal may occur prior to this. Ascites cytology from last paracentesis is positive for malignancy with suspicion for adenoma History of cervical cancer in the past Gynecology following Surgery following GI following Oncology following Follow for recurrence Hypoxia Improving Likely a combination of obesity and ascites Continue oxygen as needed Status post drainage of ascites Wean oxygen as tolerated Urinary tract infection Resolved Treatment completed ARF (acute renal failure) Resolved Chronic kidney disease may be present Follow renal function Diabetes mellitus type 2 Follow blood sugars Insulin sliding scale Diabetic diet NPH SQ BID HTN (hypertension) Follow blood pressures Currently stable No change in present treatment Umbilical hernia Acute phase is likely related to ascites Follow clinically for now She is not a good surgical candidate Constipation As needed laxatives Global weakness Continue physical therapy Discharge plan: Physical therapy ongoing. SNF at discharge. Will need better blood sugar control and improved bowel movements. Problem Qualifiers (1) Ascites: Qualified Code: R18.0 - Malignant ascites Juan Gallegos MD Feb 11, 2017 15:24
--- NOTE | 2017-02-11 15:49 | HHI.HCPN ---
Met with Ms. Zimmer for follow-up palliative care support. She is currently lying in bed, alert, oriented, and able to make needs known. Verbalizes some depression regarding current situation. Briefly brings up hospice, but declines wishing to pursue comfort measures only at this time. She confirms desire to discharge to [facility] when medically able. Inquires about rehab days, CM in to discuss. Verbalizes understanding. We briefly discussed health care surrogate designation. She declines completing a living will or any advanced directives paperwork. Explained [place] Statutes, verbalizes understanding of proxy designation. Should she become incapacitated, per [place] Statutes, health care proxy decision making would fall to the majority of her siblings. Confirms she would want her siblings to serve in this role, still declines completing paperwork stating "I will know when it's time to do that". Encouraged her to request such paperwork where ever she is located when she's ready. Ms. Zimmre has 2 brothers and 1 sister: Rey Avila, Alex Avila, and Mayra Melchor. States she has a half-sister, Lata. No further questions or concerns at this time. Appreciative of ongoing support. Palliative care will continue to follow throughout hospitalization. Important Contacts Rey Avila (brother): [phone] Alex Avila (brother): [phone] or [phone] Mayra Melchor (sister) [phone] Lolis Aldana (friend): [phone]-- does not wish for her to make any decisions Ute Marte CASING TESTER, HOUSEKEEPER AND LAUNDRY ASSISTANT Feb 11, 2017 15:49
--- NOTE | 2017-02-11 16:13 | RADRPT ---
EXAM DATE/TIME: 02/11/2017 15:29 [facility] COMPARISON: CT ABDOMEN & PELVIS W/O CONTRAST, January 26, 2017, 14:38. CT THORAX W/O CONTRAST, January 31, 2017, 10:06 . ABDOMEN KUB ONLY, January 28, 2017, 15:13. INDICATIONS : Evaluate abdomen drain location. MEDICAL HISTORY : Hypertension. Diabetes mellitus type 2. Cervical cancer. SURGICAL HISTORY : Cholecystectomy. ENCOUNTER: Initial ACUITY: 1 day PAIN SCORE: Non-responsive. LOCATION: all quadrants. FINDINGS: Supine view of the abdomen was performed. The abdominal bowel gas pattern is normal. There is some s tool in the colon. The bowel gas pattern has improved compared to the prior study. No abnormal masses , calcifications, or organomegaly is seen. The osseous structures are stable. There are surgical cli ps in the right upper quadrant. No definite drainage catheter is seen on this examination. CONCLUSION: Benign abdomen. No definite abdominal drain catheter is demonstrated. Gilberto Harman MD on February 11, 2017 at 16:02 Board Certified Radiologist. This report was verified electronically.
[2017-02-11] MEDS: INSULIN HUMAN NPH 1,000 UNITS/10 ML VIAL SQ SCH (17:59)
[2017-02-11 20:00] VITALS: BP 106/68; PULSE 104; RESP 20; TEMP 98.1; O2SAT 93
[2017-02-11 20:57] VITALS: O2SAT 95
[2017-02-12] VITALS (7 sets, daily range): BP systolic 103–119; BP diastolic 57–59; PULSE 86–101; RESP 17–20; TEMP 97.3–98.4; O2SAT 92–96
[2017-02-12] MEDS: INSULIN ASPART SUPPLEMENTAL SCALE SQ SCH ×4 (06:22→21:00)
[2017-02-12] MEDS: INSULIN HUMAN NPH 1,000 UNITS/10 ML VIAL SQ SCH ×2 (08:00→16:36)
[2017-02-12] MEDS: TIMOLOL MALEATE 0.5% OPHT SOLN 5 ML BTL EACH EYE SCH ×2 (09:00→21:00)
[2017-02-12] MEDS: NYSTATIN 100,000 U/GM PWD 15 GM BTL TOPICAL SCH ×2 (09:00→21:00)
[2017-02-12] MEDS: BRIMONIDINE TARTRATE 0.2% OPHT SOLN 5 ML BTL EACH EYE SCH ×2 (09:00→21:00)
[2017-02-12] MEDS: CARVEDILOL 12.5 MG TAB PO SCH (09:00)
[2017-02-12] MEDS: POLYETHYLENE GLYCOL 17 GM PKG PO SCH (09:00)
[2017-02-12] MEDS: DOCUSATE SODIUM 50 MG/SENNA 8.6 MG TAB PO SCH ×2 (09:00→21:00)
--- NOTE | 2017-02-12 10:13 | HHI.PR ---
Subjective Remarks Follow-up metastasis adenoma of the abdomen/ascites/global weakness/constipation 02/12/17-patient seen and examined, reports constipation 2-3 days, no acute event overnight and currently afebrile Objective Vitals Vital Signs Date Time Temp Pulse Resp B/P Pulse Ox O2 Delivery O2 Flow Rate FiO2 02/12/17 09:25 Nasal Cannula 2.00 02/12/17 08:37 94 Nasal Cannula 2.00 02/12/17 08:00 97.4 94 17 107/57 96 02/12/17 00:00 98.4 86 18 110/58 93 02/11/17 20:57 95 Nasal Cannula 2.00 02/11/17 20:48 Nasal Cannula 2.00 02/11/17 20:00 98.1 104 20 106/68 93 02/11/17 12:00 97.3 89 16 109/55 94 02/11/17 11:06 96 Nasal Cannula 3.00 02/11/17 10:31 Nasal Cannula 2.00 21 I/O 02/11/17 02/11/17 02/11/17 02/12/17 02/12/17 02/12/17 07:00 15:00 23:00 07:00 15:00 23:00 Intake Total 240 ml 200 ml 360 ml 120 ml 120 ml Output Total 0 ml 400 ml Balance 240 ml 200 ml 360 ml -280 ml 120 ml Intake Oral 240 ml 200 ml 360 ml 120 ml 120 ml Output Urine Total 400 ml Drainage Total 0 ml # Voids 2 3 0 # Bowel Movements 0 0 0 0 Imaging Last Impressions Abdomen X-Ray 02/11/17 0000 Signed Impressions: Service Date/Time: Saturday, February 11, 2017 15:29 - CONCLUSION: Benign abdomen. No definite abdominal drain catheter is demonstrated. Gilberto Harman MD Chest CT 01/31/17 0000 Signed Impressions: Service Date/Time: January 10:06 - CONCLUSION: 1. No discrete mass lesion identified. 2. Minimal bibasilar effusions with atelectatic changes in the lung bases. 3. No significant adenopathy. Juan Pleitez MD Cyst Biopsy Asp-Paracentesis US 01/27/17 0000 Signed Impressions: Service Date/Time: Friday, January 27, 2017 11:00 - CONCLUSION: Uncomplicated ultrasound guided paracentesis. Juan Pleitez MD Abdomen/Pelvis CT 01/26/17 1349 Signed Impressions: Service Date/Time: Thursday, January 26, 2017 14:38 - CONCLUSION: 1. Moderate to large amount of ascites without definitive etiology identified on CT. No definitive mesenteric mass or hepatic volume loss. Evaluation of the mesentery and liver are however limited due to lack of IV contrast. 2. Periumbilical anterior bowel wall hernia containing fat and ascites fluid. Myke Kendall MD ADDENDUM: Reexamination of the pelvic CT exam does demonstrate a small uterus which appears unremarkable by CT. The uterus was originally reported as surgically absent. Myke Kendall MD Chest X-Ray 01/26/17 1155 Signed Impressions: Service Date/Time: Thursday, January 26, 2017 12:13 - CONCLUSION: Underinflated examination with atelectasis at the bases. No acute finding is identified. Sriram Paul MD Renal Ultrasound 01/26/17 0000 Signed Impressions: Service Date/Time: Thursday, January 26, 2017 17:59 - CONCLUSION: Ultrasound appearance of the kidneys and urinary bladder within normal limits. Sriram Kaufman MD Objective Remarks GENERAL: NAD and obese patient SKIN: Warm and dry. HEAD: Normocephalic. EYES: No scleral icterus. Right eye blindness NECK: Supple, trachea midline. No JVD or lymphadenopathy. CARDIOVASCULAR: Regular rate and rhythm without murmurs, gallops, or rubs. RESPIRATORY: Breath sounds equal bilaterally. No accessory muscle use. GASTROINTESTINAL: Abdomen soft, non-tender, nondistended. Right sided abdominal drain in place MUSCULOSKELETAL: No cyanosis, or edema. BACK: Nontender without obvious deformity. No CVA tenderness. Procedures paracentesis 7.1 Liters A/P Problem List: (1) Metastatic adenocarcinoma ICD Code: C79.9 Status: Acute (2) Ascites ICD Code: R18.8 Status: Acute (3) Hypoxia ICD Code: R09.02 Status: Acute (4) Urinary tract infection ICD Code: N39.0 Status: Acute (5) ARF (acute renal failure) ICD Code: N17.9 Status: Acute (6) DM2 (diabetes mellitus, type 2) ICD Code: E11.9 Status: Acute (7) HTN (hypertension) ICD Code: I10 Status: Acute (8) Umbilical hernia ICD Code: K42.9 Status: Acute (9) Constipation ICD Code: K59.00 Status: Acute Assessment and Plan 62-year-old female with Metastasis adenocarcinoma cytology from last paracentesis is positive for malignancy with suspicion for adenoma Appreciate input from PHLEBOTOMY SUPPORT TECH oncology, medical oncology Chemotherapy is planned on an outpatient basis Ascites History of cervical cancer in the past Continue with abdominal drain and monitor output Appreciate input from gynecology, medical oncology, GI Hypoxia Resolved him a continue DuoNeb when necessary Urinary tract infection Resolved Treatment completed ARF (acute renal failure) Resolved Chronic kidney disease may be present Follow renal function Diabetes mellitus type 2 Insulin sliding scale NPH SQ BID and continue to hold Diabeta 5 mg daily HTN (hypertension) BP soft Decrease Coreg to 6.25 mg twice a day Continue to hold DINA inhibitor Umbilical hernia Acute phase is likely related to ascites Follow clinically for now She is not a good surgical candidate Constipation As needed laxatives Fleet enema 1 today Global weakness Continue physical therapy Problem Qualifiers (1) Ascites: Qualified Code: R18.0 - Malignant ascites (2) Urinary tract infection: Qualified Code: N30.00 - Acute cystitis without hematuria Vazquez Ya MD Feb 12, 2017 10:13 Problem Qualifiers (1) Ascites: Qualified Code: R18.0 - Malignant ascites (2) Urinary tract infection: Qualified Code: N30.00 - Acute cystitis without hematuria Vazquez Ya MD Feb 12, 2017 10:13
[2017-02-12] MEDS ORDERED: PERI8.6T PO (10:25)
[2017-02-12] MEDS ORDERED: ALPR.5 PO (10:25)
[2017-02-12] MEDS ORDERED: CARV6.25 PO (10:25)
[2017-02-12] MEDS ORDERED: HYDR-3516 PO (10:25)
[2017-02-12] MEDS ORDERED: NOVONP2 SQ ×2 (10:25)
[2017-02-12] MEDS: ENOXAPARIN SODIUM 40 MG/0.4 ML SYRINGE SQ SCH (12:01)
[2017-02-12] MEDS: CARVEDILOL 6.25 MG TAB PO SCH (21:00)
[2017-02-13] VITALS (7 sets, daily range): BP systolic 99–119; BP diastolic 53–59; PULSE 80–94; RESP 18–19; TEMP 95.8–97.8; O2SAT 95–96
[2017-02-13] MEDS: ALPRAZolam 0.5 MG TAB PO PRN ×2 (00:23→21:34)
[2017-02-13] MEDS: INSULIN ASPART SUPPLEMENTAL SCALE SQ SCH ×4 (06:29→21:53)
[2017-02-13] MEDS: DOCUSATE SODIUM 50 MG/SENNA 8.6 MG TAB PO SCH ×2 (08:25→20:31)
[2017-02-13] MEDS: CARVEDILOL 6.25 MG TAB PO SCH ×2 (08:25→20:32)
[2017-02-13] MEDS: POLYETHYLENE GLYCOL 17 GM PKG PO SCH (08:26)
[2017-02-13] MEDS: BRIMONIDINE TARTRATE 0.2% OPHT SOLN 5 ML BTL EACH EYE SCH ×2 (08:27→20:33)
[2017-02-13] MEDS: NYSTATIN 100,000 U/GM PWD 15 GM BTL TOPICAL SCH ×2 (08:27→21:54)
[2017-02-13] MEDS: TIMOLOL MALEATE 0.5% OPHT SOLN 5 ML BTL EACH EYE SCH ×2 (08:28→20:33)
[2017-02-13] MEDS: INSULIN HUMAN NPH 1,000 UNITS/10 ML VIAL SQ SCH ×2 (08:29→16:43)
[2017-02-13] MEDS: SENNOSIDES 8.6 MG TAB PO PRN (08:33)
--- NOTE | 2017-02-13 10:35 | HHI.PR ---
Subjective Remarks Follow-up metastasis adenoma of the abdomen/ascites/global weakness/constipation 02/12/17-patient seen and examined, reports constipation 2-3 days, no acute event overnight and currently afebrile 02/13/17-patient seen and examined, no longer constipated. Stable and no complaints Objective Vitals Vital Signs Date Time Temp Pulse Resp B/P Pulse Ox O2 Delivery O2 Flow Rate FiO2 02/13/17 08:38 Nasal Cannula 2.00 02/13/17 08:00 96.2 87 18 99/56 95 02/13/17 00:00 97.8 80 19 119/59 96 02/12/17 20:45 2.00 02/12/17 20:00 97.4 95 19 119/57 92 02/12/17 17:40 95 Nasal Cannula 2.00 02/12/17 16:00 97.6 101 19 119/59 95 02/12/17 12:00 97.3 100 20 103/58 95 I/O 02/12/17 02/12/17 02/12/17 02/13/17 02/13/17 02/13/17 07:00 15:00 23:00 07:00 15:00 23:00 Intake Total 120 ml 1080 ml 360 ml 240 ml Output Total 400 ml 500 ml Balance -280 ml 580 ml 360 ml 240 ml Intake Oral 120 ml 1080 ml 360 ml 240 ml IV Total 0 ml Output Urine Total 400 ml 500 ml # Voids 2 1 # Bowel Movements 0 2 0 0 Imaging Last Impressions Abdomen X-Ray 02/11/17 0000 Signed Impressions: Service Date/Time: Saturday, February 11, 2017 15:29 - CONCLUSION: Benign abdomen. No definite abdominal drain catheter is demonstrated. Gilberto Harman MD Chest CT 01/31/17 0000 Signed Impressions: Service Date/Time: January 10:06 - CONCLUSION: 1. No discrete mass lesion identified. 2. Minimal bibasilar effusions with atelectatic changes in the lung bases. 3. No significant adenopathy. Juan Pleitez MD Cyst Biopsy Asp-Paracentesis US 01/27/17 0000 Signed Impressions: Service Date/Time: Friday, January 27, 2017 11:00 - CONCLUSION: Uncomplicated ultrasound guided paracentesis. Juan Pleitez MD Abdomen/Pelvis CT 01/26/17 1349 Signed Impressions: Service Date/Time: Thursday, January 26, 2017 14:38 - CONCLUSION: 1. Moderate to large amount of ascites without definitive etiology identified on CT. No definitive mesenteric mass or hepatic volume loss. Evaluation of the mesentery and liver are however limited due to lack of IV contrast. 2. Periumbilical anterior bowel wall hernia containing fat and ascites fluid. Myke Kendall MD ADDENDUM: Reexamination of the pelvic CT exam does demonstrate a small uterus which appears unremarkable by CT. The uterus was originally reported as surgically absent. Myke Kendall MD Chest X-Ray 01/26/17 1155 Signed Impressions: Service Date/Time: Thursday, January 26, 2017 12:13 - CONCLUSION: Underinflated examination with atelectasis at the bases. No acute finding is identified. Sriram Paul MD Renal Ultrasound 01/26/17 0000 Signed Impressions: Service Date/Time: Thursday, January 26, 2017 17:59 - CONCLUSION: Ultrasound appearance of the kidneys and urinary bladder within normal limits. Sriram Kaufman MD Objective Remarks GENERAL: NAD and obese patient SKIN: Warm and dry. HEAD: Normocephalic. EYES: No scleral icterus. Right eye blindness NECK: Supple, trachea midline. No JVD or lymphadenopathy. CARDIOVASCULAR: Regular rate and rhythm without murmurs, gallops, or rubs. RESPIRATORY: Breath sounds equal bilaterally. No accessory muscle use. GASTROINTESTINAL: Abdomen soft, non-tender, nondistended. Right sided abdominal drain in place with minimal output MUSCULOSKELETAL: No cyanosis, or edema. BACK: Nontender without obvious deformity. No CVA tenderness. Procedures paracentesis 7.1 Liters A/P Problem List: (1) Metastatic adenocarcinoma ICD Code: C79.9 Status: Acute (2) Ascites ICD Code: R18.8 Status: Acute (3) Hypoxia ICD Code: R09.02 Status: Acute (4) Urinary tract infection ICD Code: N39.0 Status: Acute (5) ARF (acute renal failure) ICD Code: N17.9 Status: Acute (6) DM2 (diabetes mellitus, type 2) ICD Code: E11.9 Status: Acute (7) HTN (hypertension) ICD Code: I10 Status: Acute (8) Umbilical hernia ICD Code: K42.9 Status: Acute (9) Constipation ICD Code: K59.00 Status: Acute Assessment and Plan 62-year-old female with Metastasis adenocarcinoma cytology from last paracentesis is positive for malignancy with suspicion for adenoma Appreciate input from [employer] oncology, medical oncology Chemotherapy is planned on an outpatient basis Ascites History of cervical cancer in the past Continue with abdominal drain and monitor output Appreciate input from gynecology, medical oncology, GI Hypoxia Resolved him a continue DuoNeb when necessary Urinary tract infection Resolved Treatment completed ARF (acute renal failure) Resolved Chronic kidney disease may be present Diabetes mellitus type 2 Insulin sliding scale NPH SQ BID and continue to hold Diabeta 5 mg daily HTN (hypertension) BP soft Continue Coreg 6.25 mg twice a day Continue to hold DINA inhibitor Umbilical hernia Acute phase is likely related to ascites Follow clinically for now She is not a good surgical candidate Constipation-resolved As needed laxatives Global weakness Continue physical therapy Problem Qualifiers (1) Ascites: Qualified Code: R18.0 - Malignant ascites (2) Urinary tract infection: Qualified Code: N30.00 - Acute cystitis without hematuria Vazquez Ya MD Feb 13, 2017 10:35
[2017-02-13] MEDS: ENOXAPARIN SODIUM 40 MG/0.4 ML SYRINGE SQ SCH (11:54)
[2017-02-14] VITALS: BP 107/53; PULSE 86; RESP 18; TEMP 97.4; O2SAT 96
[2017-02-14] MEDS: ACETAMINOPHEN/HYDROcodone 325 MG/5 MG TAB PO PRN (04:36)
[2017-02-14] MEDS: INSULIN ASPART SUPPLEMENTAL SCALE SQ SCH ×4 (06:21→16:17)
[2017-02-14 08:00] VITALS: BP 127/69; PULSE 90; RESP 19; TEMP 96.9; O2SAT 91
[2017-02-14] MEDS: INSULIN HUMAN NPH 1,000 UNITS/10 ML VIAL SQ SCH ×2 (08:00→16:14)
[2017-02-14] MEDS: NYSTATIN 100,000 U/GM PWD 15 GM BTL TOPICAL SCH (08:47)
[2017-02-14] MEDS: POLYETHYLENE GLYCOL 17 GM PKG PO SCH (08:48)
[2017-02-14] MEDS: CARVEDILOL 6.25 MG TAB PO SCH (08:54)
[2017-02-14] MEDS: TIMOLOL MALEATE 0.5% OPHT SOLN 5 ML BTL EACH EYE SCH (08:54)
[2017-02-14] MEDS: BRIMONIDINE TARTRATE 0.2% OPHT SOLN 5 ML BTL EACH EYE SCH (08:54)
[2017-02-14] MEDS: DOCUSATE SODIUM 50 MG/SENNA 8.6 MG TAB PO SCH (08:54)
--- NOTE | 2017-02-14 10:12 | HHI.PR ---
Subjective Remarks Follow-up metastasis adenoma of the abdomen/ascites/global weakness/constipation 02/12/17-patient seen and examined, reports constipation 2-3 days, no acute event overnight and currently afebrile 02/13/17-patient seen and examined, no longer constipated. Stable and no complaints 02/14/17-patient seen and examined, no acute complaints and vitals stable. Discharge disposition is still pending. Objective Vitals Vital Signs Date Time Temp Pulse Resp B/P Pulse Ox O2 Delivery O2 Flow Rate FiO2 02/14/17 07:27 Nasal Cannula 2.00 21 02/14/17 05:36 20 02/14/17 00:00 97.4 86 18 107/53 96 02/13/17 22:02 95 Nasal Cannula 2.00 02/13/17 20:40 Nasal Cannula 2.00 02/13/17 20:00 97.1 86 18 113/54 95 02/13/17 16:00 96.5 94 18 100/53 95 02/13/17 12:00 95.8 84 18 104/53 95 02/13/17 10:45 95 Nasal Cannula 2.00 I/O 02/13/17 02/13/17 02/13/17 02/14/17 02/14/17 02/14/17 07:00 15:00 23:00 07:00 15:00 23:00 Intake Total 240 ml 720 ml 240 ml 240 ml 0 ml Output Total 225 ml 0 ml Balance 240 ml 495 ml 240 ml 240 ml 0 ml Intake Oral 240 ml 720 ml 240 ml 240 ml IV Total 0 ml Output Urine Total 225 ml Drainage Total 0 ml 0 ml # Voids 1 1 2 # Bowel Movements 0 1 0 0 Objective Remarks GENERAL: NAD and obese patient SKIN: Warm and dry. HEAD: Normocephalic. EYES: No scleral icterus. Right eye blindness NECK: Supple, trachea midline. No JVD or lymphadenopathy. CARDIOVASCULAR: Regular rate and rhythm without murmurs, gallops, or rubs. RESPIRATORY: Breath sounds equal bilaterally. No accessory muscle use. GASTROINTESTINAL: Abdomen soft, non-tender, nondistended. Right sided abdominal drain in place with minimal output MUSCULOSKELETAL: No cyanosis, or edema. BACK: Nontender without obvious deformity. No CVA tenderness. Procedures paracentesis 7.1 Liters A/P Problem List: (1) Metastatic adenocarcinoma ICD Code: C79.9 Status: Acute (2) Ascites ICD Code: R18.8 Status: Acute (3) Hypoxia ICD Code: R09.02 Status: Acute (4) Urinary tract infection ICD Code: N39.0 Status: Acute (5) ARF (acute renal failure) ICD Code: N17.9 Status: Acute (6) DM2 (diabetes mellitus, type 2) ICD Code: E11.9 Status: Acute (7) HTN (hypertension) ICD Code: I10 Status: Acute (8) Umbilical hernia ICD Code: K42.9 Status: Acute (9) Constipation ICD Code: K59.00 Status: Acute Assessment and Plan 62-year-old female with Metastasis adenocarcinoma cytology from last paracentesis is positive for malignancy with suspicion for adenoma Appreciate input from [employer] oncology, medical oncology Chemotherapy is planned on an outpatient basis Ascites History of cervical cancer in the past Continue with abdominal drain and monitor output which has remained minimal Appreciate input from gynecology, medical oncology, GI Hypoxia Resolved him a continue DuoNeb when necessary Urinary tract infection Resolved ARF (acute renal failure) Resolved Diabetes mellitus type 2 Insulin sliding scale NPH SQ BID and continue to hold Diabeta 5 mg daily HTN (hypertension) Secondary to soft BP, will decrease Coreg to 3.125 mg by mouth twice a day Continue to hold DINA inhibitor Umbilical hernia Acute phase is likely related to ascites Follow clinically for now She is not a good surgical candidate Constipation-resolved As needed laxatives Global weakness Continue physical therapy Problem Qualifiers (1) Ascites: Qualified Code: R18.0 - Malignant ascites (2) Urinary tract infection: Qualified Code: N30.00 - Acute cystitis without hematuria Vazquez Ya MD Feb 14, 2017 10:12
[2017-02-14] MEDS: ENOXAPARIN SODIUM 40 MG/0.4 ML SYRINGE SQ SCH (11:58)
[2017-02-14 12:00] VITALS: BP 105/66; PULSE 96; RESP 19; TEMP 97; O2SAT 92
[2017-02-14] MEDS ORDERED: SENN1TAB PO (14:58)
[2017-02-14] MEDS ORDERED: CARV3.125 PO (14:58)
[2017-02-14] MEDS ORDERED: POLY17S PO (14:58)
--- NOTE | 2017-02-14 14:59 | HHI.DS ---
Discharge Summary Admission Date Jan 26, 2017 at 15:52 Discharge Date: Feb 14, 2017 Admitting Diagnosis ascites, UTI, hypoxia (1) Metastatic adenocarcinoma ICD Code: C79.9 (2) Ascites ICD Code: R18.8 (3) Hypoxia ICD Code: R09.02 (4) Urinary tract infection ICD Code: N39.0 (5) ARF (acute renal failure) ICD Code: N17.9 (6) DM2 (diabetes mellitus, type 2) ICD Code: E11.9 (7) HTN (hypertension) ICD Code: I10 (8) Umbilical hernia ICD Code: K42.9 (9) Constipation ICD Code: K59.00 Procedures paracentesis 7.1 Liters Brief History - From Admission Patient is a 62-year-old female with a known history of diabetes mellitus type 2 and frequent urinary tract infections. Patient says that for the last 3 days she's had increasing swelling of the abdomen and decreased urine output. Her urine also has been foul-smelling and she was concerned she had a urinary tract infection. For the last month she has received 2 separate empiric antibiotic regimens for probable urinary tract infection by her primary care doctor. One of these of Cipro and she believes the other was Flagyl. Patient says that her urine has never cleared up and is become very discomforting. Patient came to the emergency room with increased swelling for the last 3 days and on exam her abdomen is quite distended. She is obese however this distention is superimposed on that and there is a fluid wave on exam with hypoactive bowel sounds. Patient notes normal bowel habits without any history of obstruction. She does not drink alcohol notes no recent exposure to possible toxins. She does have acute kidney injury and was also hypoxemic on arrival in the emergency room. Patient was given Lasix and a urinary catheter was placed. Patient did have some improvement on oxygen. She has been recommended for further evaluation and treatment in the hospital due to massive plan ascites clinically and on CT findings. Imaging Last Impressions Abdomen X-Ray 02/11/17 0000 Signed Impressions: Service Date/Time: Saturday, February 11, 2017 15:29 - CONCLUSION: Benign abdomen. No definite abdominal drain catheter is demonstrated. Gilberto Harman MD Chest CT 01/31/17 0000 Signed Impressions: Service Date/Time: January 10:06 - CONCLUSION: 1. No discrete mass lesion identified. 2. Minimal bibasilar effusions with atelectatic changes in the lung bases. 3. No significant adenopathy. Juan Pleitez MD Cyst Biopsy Asp-Paracentesis US 01/27/17 0000 Signed Impressions: Service Date/Time: Friday, January 27, 2017 11:00 - CONCLUSION: Uncomplicated ultrasound guided paracentesis. Juan Pleitez MD Abdomen/Pelvis CT 01/26/17 1349 Signed Impressions: Service Date/Time: Thursday, January 26, 2017 14:38 - CONCLUSION: 1. Moderate to large amount of ascites without definitive etiology identified on CT. No definitive mesenteric mass or hepatic volume loss. Evaluation of the mesentery and liver are however limited due to lack of IV contrast. 2. Periumbilical anterior bowel wall hernia containing fat and ascites fluid. Myke Kendall MD ADDENDUM: Reexamination of the pelvic CT exam does demonstrate a small uterus which appears unremarkable by CT. The uterus was originally reported as surgically absent. Myke Kendall MD Chest X-Ray 01/26/17 1155 Signed Impressions: Service Date/Time: Thursday, January 26, 2017 12:13 - CONCLUSION: Underinflated examination with atelectasis at the bases. No acute finding is identified. Sriram Paul MD Renal Ultrasound 01/26/17 0000 Signed Impressions: Service Date/Time: Thursday, January 26, 2017 17:59 - CONCLUSION: Ultrasound appearance of the kidneys and urinary bladder within normal limits. Sriram Kaufman MD PE at Discharge GENERAL: NAD and obese patient SKIN: Warm and dry. HEAD: Normocephalic. EYES: No scleral icterus. Right eye blindness NECK: Supple, trachea midline. No JVD or lymphadenopathy. CARDIOVASCULAR: Regular rate and rhythm without murmurs, gallops, or rubs. RESPIRATORY: Breath sounds equal bilaterally. No accessory muscle use. GASTROINTESTINAL: Abdomen soft, non-tender, nondistended. Right sided abdominal drain in place with minimal output MUSCULOSKELETAL: No cyanosis, or edema. BACK: Nontender without obvious deformity. No CVA tenderness. Hospital Course Patient was admitted for Metastasis adenocarcinoma consultation to [employer] and medical oncology and she underwent paracentesis with cytology finding of malignancy with high degree of suspicion for adenoma. However [employer] oncology will plan chemotherapy outpatient. She was treated for UTI. Her blood pressure medications were managed and adjusted accordingly. She was continued on her treatment for diabetes with adjustment of for metastases. PT was consulted. Patient was treated for constipation with stool softener. Abdominal drain was placed secondary to ascites with monitoring of output. Vitals remained stable prior to discharge Pt Condition on Discharge: Stable Discharge Disposition: Discharge to SNF Discharge Time: > 30 minutes Discharge Instructions DIET: Follow Instructions for: Diabetic Diet Activities you can perform: Regular-No Restrictions Follow up Referrals: Oncology - 1 Week with [facility] PCP Follow-up - 2-3 Days New Medications: Sennosides-Docusate Sodium (Astrid-Colace) 8.6-50 Mg Tab 1 TAB PO BID Constipation #60 Ref 0 TAB Alprazolam (Xanax) 0.5 Mg Tab 0.5 MG PO Q8H PRN ANXIETY #10 TAB Carvedilol (Coreg) 3.125 Mg Tab 3.125 MG PO Q12HR Blood Pressure Management #60 TAB Hydrocodone-Acetaminophen (Hydrocodone-Acetaminophen) 5-325 mg Tab 1 TAB PO Q4H PRN PAIN SCALE 1 TO 5 #10 TAB Insulin Human NPH Inj (Novolin N Inj) 1,000 Unit/10 Ml Vial 45 UNITS SQ DAILY@17 Blood Sugar Management #1000 INJECTION Insulin Human NPH Inj (Novolin N Inj) 1,000 Unit/10 Ml Vial 75 UNITS SQ DAILY@08 Blood Sugar Management #1000 INJECTION Polyethylene Glycol 3350 Powder (Polyethylene Glycol 3350 Powder) 17 Gm Pow 17 GM PO DAILY Bowel Management #30 GM Sennosides-Docusate Sodium (Senna Plus 8.6-50 mg) 1 Tab Tab 1 TAB PO BID Bowel Management #60 TAB Continued Medications: Aspirin (Aspirin) 81 Mg Chew 81 MG CHEW DAILY Ref 0 TAB Brimonidine Opth Drops (Brimonidine Opth Drops) 0.2% Soln 1 DROP EACH EYE BID Intraocular pressure #1 Ref 0 BOTTLE Magnesium Oxide (Magnesium Oxide) 500 Mg Tab 1000 MG PO DAILY Ref 0 TAB Multiple Vitamins W/ Minerals (Ocuvite) 1 Tab 1 TAB PO DAILY Nutritional Supplement Ref 0 TAB Timolol Opth Drops (Timolol Opth Drops) 0.5 % Soln 1 DROP EACH EYE BID Glaucoma #1 Ref 0 BOTTLE Discontinued Medications: Alprazolam (Xanax) 0.5 Mg Tab 0.5 MG PO Q8H PRN ANXIETY Ref 0 TAB Insulin Human Isophane-Regular 70-30 Inj (Novolin 70/30 Inj) 1,000 Units/10 Ml Inj 40 UNIT DAILY Vazquez Ya MD Feb 14, 2017 14:59
[2017-02-14 16:00] VITALS: BP 115/60; PULSE 94; RESP 19; TEMP 96.1; O2SAT 93
[2017-02-14] MEDS ORDERED: CARVEDILOL 3.125 MG TAB PO SCH (21:00)
== END 2017-02-14 16:48 | DRG 357 ==
LOC: PHED 11:30 → PHEDA 15:52 → PH3B 16:43 → N07B 01-31 20:35
PROVIDERS: ADMIT Hospitalist; ATTEND Hospitalist
PROC: 0T9B70Z Drainage of Bladder with Drainage Device, Via Natural or Artificial Opening (ICD-10-PCS; 2017-01-26)
PROC: 0W9G3ZX Drainage of Peritoneal Cavity, Percutaneous Approach, Diagnostic (ICD-10-PCS; 2017-01-27)
PROC: 0WJH4ZZ Inspection of Retroperitoneum, Percutaneous Endoscopic Approach (ICD-10-PCS; 2017-02-01)
PROC: 0WJG4ZZ Inspection of Peritoneal Cavity, Percutaneous Endoscopic Approach (ICD-10-PCS; 2017-02-01)
PROC: 0W9G3ZX Drainage of Peritoneal Cavity, Percutaneous Approach, Diagnostic (ICD-10-PCS; 2017-02-01)
PROC: 0W9G3ZZ Drainage of Peritoneal Cavity, Percutaneous Approach (ICD-10-PCS; 2017-02-01)
PROC: 0DBS4ZX (ICD-10-PCS; 2017-02-01)
PROC: 0DBW4ZX Excision of Peritoneum, Percutaneous Endoscopic Approach, Diagnostic (ICD-10-PCS; 2017-02-01)
PROC: 0WJJ4ZZ Inspection of Pelvic Cavity, Percutaneous Endoscopic Approach (ICD-10-PCS; principal; 2017-02-01 13:16)
DX: C78.6 Secondary malignant neoplasm of retroperitoneum and peritoneum (principal); R18.0 Malignant ascites; N17.9 Acute kidney failure, unspecified; E11.21 Type 2 diabetes mellitus with diabetic nephropathy; E66.2 Morbid (severe) obesity with alveolar hypoventilation; N39.0 Urinary tract infection, site not specified; J98.11 Atelectasis; C80.1 Malignant (primary) neoplasm, unspecified; E11.40 Type 2 diabetes mellitus with diabetic neuropathy, unspecified; E11.22 Type 2 diabetes mellitus with diabetic chronic kidney disease; I12.9 Hypertensive chronic kidney disease with stage 1 through stage 4 chronic kidney disease, or unspecified chronic kidney disease; N18.9 Chronic kidney disease, unspecified; Z85.41 Personal history of malignant neoplasm of cervix uteri; Z92.21 Personal history of antineoplastic chemotherapy; Z92.3 Personal history of irradiation; J42 Unspecified chronic bronchitis; Z79.4 Long term (current) use of insulin; I73.9 Peripheral vascular disease, unspecified; R09.02 Hypoxemia; E11.319 Type 2 diabetes mellitus with unspecified diabetic retinopathy without macular edema; Z87.440 Personal history of urinary (tract) infections; K42.9 Umbilical hernia without obstruction or gangrene; H40.9 Unspecified glaucoma; H54.41 Blindness, right eye, normal vision left eye; K59.00 Constipation, unspecified; Z87.891 Personal history of nicotine dependence; Z80.0 Family history of malignant neoplasm of digestive organs; Z51.5 Encounter for palliative care; Q71.1 Congenital absence of upper arm and forearm with hand present; Z82.3 Family history of stroke; I87.8 Other specified disorders of veins; R53.1 Weakness
CPT/HCPCS: 36600; 49083; 71010; 71250; 74000; 74176; 76775; 76937; 80048; 80053; 80074; 81001; 82042; 82103; 82105; 82150; 82378; 82390; 82550; 82552; 82728; 82784; 82805; 82948; 83036; 83516; 83540; 83550; 83615; 83690; 83735; 83880; 84157; 84443; 84484; 85025; 85027; 85610; 85730; 86038; 86256; 86300; 86301; 86304; 87070; 87077; 87086; 87186; 87205; 88112; 88305; 88341; 88342; 89051; 93005; 93306; 94664; 96365; C1729; J0696; J1650; J1815; J1940; J2405; J2710; J3010; J7030; J7120; J7613; Q9963